=== PATIENT | female | born 1940 | race Caucasian/White ===

== ENCOUNTER 2025-08-06 07:08 | Emergency (ER) | payer MEDICARE, SELFPAY ==
[2025-08-06] VITALS (34 sets, daily range): BP systolic 143–184; BP diastolic 68–99; PULSE 74–75; RESP 16–18; TEMP 36.4; O2SAT 90–98
--- NOTE | ~2025-08-06 | XR_ITS ---
Examination: XR knee RT 3V Clinical History: pain s/p fall Comparison: None Technique: 3 views right knee Findings/impression: No acute findings- 1. No fracture, dislocation, or effusion right knee. 2. Patellofemoral compartment joint space narrowing with associated degenerative changes. 3. Medial and lateral compartment marginal osteophytes. 4. Distal femoral osteophyte Reviewed, dictated and finalized at location R.
--- NOTE | ~2025-08-06 | XR_ITS ---
Examination: XR shoulder LT min 2V, XR elbow LT min 3V Clinical History: pain s/p fall Comparison: None Technique: 3 views left shoulder, 3 views left elbow Findings/impression: Left shoulder: 1. Tiny nondisplaced fracture humeral head greater tuberosity not excluded. Seen on external rotation. 2. No dislocation. Left elbow: 1. No fracture or dislocation. Reviewed, dictated and finalized at location R.
--- NOTE | ~2025-08-06 | XR_ITS ---
Examination: XR chest 1V Clinical History: pain s/p fall Comparison: None Technique: Portable AP Findings: Loop recorder. Heart size mildly enlarged. Lungs clear. No acute bony abnormality. IMPRESSION: 1. No acute cardiopulmonary findings given portable technique. Reviewed, dictated and finalized at location R.
--- NOTE | ~2025-08-06 | CT_ITS ---
EXAMINATION: CT shoulder LT wo con DATE: 08/06/2025 10:29 INDICATION: Left shoulder pain. TECHNIQUE: Computed tomography (CT) of the left shoulder was performed without intravenous contrast. Automated exposure control and iterative reconstruction technique were employed. The dose-length product was 654.93 mGy-cm. COMPARISON: Left shoulder radiographs 08/06/2025 FINDINGS: There is a large sliding hiatal hernia. There is a subcutaneous electronic implant in left anterior chest wall. Bone alignment is normal. There is a nondisplaced fracture of greater tuberosity of proximal humerus. There is mild osteoarthritis of glenohumeral joint and acromioclavicular joint. There is severe thoracic spondylosis. There is mild chronic anterior wedging of multiple vertebral bodies. IMPRESSION: 1. Nondisplaced fracture of greater tuberosity of proximal humerus. 2. Mild polyarticular osteoarthritis. 3. Large sliding hiatal hernia. Reviewed, dictated and finalized at location E.
[2025-08-06 08:07] LABS: Hematocrit 38.3 % (37.0-47.0); Hemoglobin 12.8 g/dL (12.0-15.0); Immature Granulocyte Percent A 0.5 % (0-0.5); Lymphocytes Absolute Auto 0.90 K/mm3 (0.9-3.2); Mean Corpuscular HGB Conc 33.4 g/dl (32-36); Mean Corpuscular Hemoglobin 33.5 pg (26-34); Mean Corpuscular Volume 100.3 fl (80-100); Nucleated Red Blood Cells Absolute Auto 0.000 K/mm3 (0.0-0.012); Nucleated Red Blood Cells Perc 0.0 % (0.0-0.2); Platelet Count Result 204 k/mm3 (150-375); Red Blood Count 3.82 M/mm3 (4.2-5.4); White Blood Count 8.7 K/mm3 (4.5-10.0)
[2025-08-06 08:21] LABS: Alanine Aminotransferase 15 U/L (6-35); Albumin Level 3.9 g/dL (3.5-5.1); Alkaline Phosphatase 99 U/L (38-126); Anion Gap 5 mmol/L (4-12); Aspartate Amino Transferase 37 U/L (14-36); Bilirubin,Total 0.6 mg/dL (0.2-1.3); Blood Urea Nitrogen 19 mg/dL (7-17); Calcium 9.2 mg/dL (8.4-10.2); Carbon Dioxide 27 mmol/L (22-30); Chloride 104 mmol/L (98-107); Estimated CRCL calculation 42 ml/min; Estimated Glomerular Filt Rate > 60; Glucose 88 mg/dL (65-110); Magnesium 1.6 mg/dL (1.6-2.3); Potassium 3.9 mmol/L (3.4-5.0); Sodium 136 mmol/L (137-145); Total Protein 6.7 g/dL (6.3-8.2)
--- NOTE | 2025-08-06 09:03 | PC.NURSE ---
Pt attempted to give urine sample with a hat on the toilet and missed the specimen container.
--- NOTE | 2025-08-06 09:21 | ED.GENADULT ---
HPI - General Adult General Chief complaint: Fall Stated complaint: glf, L shoulder pain Time Seen by Provider: 08/06/25 07:18 History of Present Illness HPI narrative: Patient 85-year-old female who presents emergency department with chief complaint of ground level fall. Patient reports that she has had several falls when she lost her balance the patient reports she has history of Parkinson's and also history of Crohn's patient reports he is not on blood thinners reports she has pain in the left upper arm reports that it is worse with movement. Patient denies numbness or tingling Related Data Allergies Allergy/AdvReac Type Severity Reaction Status Date / Time levofloxacin Allergy Itching Verified 08/06/25 07:28 Review of Systems Review of Systems: A 10 system review of systems was completed on the patient and is negative except for what is stated in the HPI. Nursing and ancillary documentation was reviewed. [facility] Past Medical History Medical History Chronic pain Exam Narrative: GENERAL: Well-appearing, well-nourished, and in no acute distress. HEAD: Normocephalic, atraumatic. EYES: PERRLA and EOMI. ENT: Nares clear, no rhinorrhea or epistaxis. Mucous membranes moist. NECK: Supple. CHEST: Clear to auscultation. No respiratory distress. HEART: Regular rate and rhythm. No murmur heard. Normal peripheral pulses. ABDOMEN: Soft, nontender, nondistended, normal active bowel sounds. EXTREMITIES: Normal range of motion except for left shoulder with there is limited range of motion secondary to pain. There is bruising present to the left upper extremity. No edema. SKIN: Warm, dry, no rash. NEURO: No focal deficits. Alert and oriented x3. PSYCH: Normal mood and affect. Course Vital Signs Vital signs: Vital Signs Temperature 36.4 C 08/06/25 07:24 Pulse Rate 74 08/06/25 07:24 Respiratory Rate 18 08/06/25 07:24 Blood Pressure 174/70 H 08/06/25 07:24 Pulse Oximetry 95 08/06/25 07:24 Oxygen Delivery Room Air 08/06/25 07:24 Temperature 36.4 C 08/06/25 07:24 Pulse Rate 75 08/06/25 09:04 Respiratory Rate 16 08/06/25 09:04 Blood Pressure 154/75 H 08/06/25 09:04 Pulse Oximetry 95 08/06/25 09:04 Oxygen Delivery Room Air 08/06/25 07:24 Medical Decision Making Vital Signs Vital Signs: Vital Signs Temperature 36.4 C 08/06/25 07:24 Pulse Rate 74 08/06/25 07:24 Respiratory Rate 18 08/06/25 07:24 Blood Pressure 174/70 H 08/06/25 07:24 Pulse Oximetry 95 08/06/25 07:24 Oxygen Delivery Room Air 08/06/25 07:24 Temperature 36.4 C 08/06/25 07:24 Pulse Rate 75 08/06/25 09:04 Respiratory Rate 16 08/06/25 09:04 Blood Pressure 154/75 H 08/06/25 09:04 Pulse Oximetry 95 08/06/25 09:04 Oxygen Delivery Room Air 08/06/25 07:24 Lab Data 08/06/25 08:00 08/06/25 08:00 Labs: Lab Results 08/06/25 08/06/25 Range/Units 08:00 10:45 WBC 8.7 (4.5-10.0) K/mm3 RBC 3.82 L (4.2-5.4) M/mm3 Hgb 12.8 (12.0-15.0) g/dL Hct 38.3 (37.0-47.0) % MCV 100.3 H (80-100) fl MCH 33.5 (26-34) pg MCHC 33.4 (32-36) g/dl RDW 12.6 (11.5-14.5) % Plt Count 204 (150-375) k/mm3 MPV 9.8 (7.4-10.4) fl Immature Gran % (Auto) 0.5 (0-0.5) % Neut % (Auto) 78.8 H (45.5-73.1) % Lymph % (Auto) 10.3 L (18.3-44.2) % Willacy % (Auto) 8.7 H (2.6-8.5) % Eos % (Auto) 1.4 (0-4.4) % Baso % (Auto) 0.3 (0.2-1.2) % Lymph # (Auto) 0.90 (0.9-3.2) K/mm3 Willacy # (Auto) 0.8 H (0.1-0.6) K/mm3 Eos # (Auto) 0.1 (0-0.3) K/mm3 Baso # (Auto) 0.0 (0.0-0.1) K/mm3 Abs Immat Gran (auto) 0.04 H (0.00-0.031) K/mm3 Absolute Neuts (auto) 6.9 H (1.3-6.7) K/mm3 Absolute Nucleated RBC 0.000 (0.0-0.012) K/mm3 Nucleated RBC % 0.0 (0.0-0.2) % Sodium 136 L (137-145) mmol/L Potassium 3.9 (3.4-5.0) mmol/L Chloride 104 (98-107) mmol/L Carbon Dioxide 27 (22-30) mmol/L Anion Gap 5 (4-12) mmol/L BUN 19 H (7-17) mg/dL Creatinine 0.81 (0.7-1.0) mg/dL Estim Creat Clear Calc 42 ml/min Estimated GFR > 60 (59 - ) Glucose 88 (65-110) mg/dL Calcium 9.2 (8.4-10.2) mg/dL Magnesium 1.6 (1.6-2.3) mg/dL Total Bilirubin 0.6 (0.2-1.3) mg/dL AST 37 H (14-36) U/L ALT 15 (6-35) U/L Alkaline Phosphatase 99 (38-126) U/L Total Protein 6.7 (6.3-8.2) g/dL Albumin 3.9 (3.5-5.1) g/dL Urine Color Pending Urine Appearance Pending Urine pH Pending Ur Specific Simpson Pending Urine Protein Pending Urine Glucose (UA) Pending Urine Ketones Pending Ur Blood (Man) Pending Urine Nitrate Pending Urine Bilirubin Pending Urine Urobilinogen Pending Leukocyte Esterase Rfl Pending Discharge Plan Discharge Clinical Impression: Fall from ground level Closed fracture of greater tuberosity of humerus Qualifiers: Encounter type: initial encounter Fracture alignment: nondisplaced Laterality: left Qualified Code(s): S42.255A - Nondisplaced fracture of greater tuberosity of left humerus, initial encounter for closed fracture Patient Disposition: Acute Care Hospital Condition: Stable Instructions: Arm Fracture in Adults (ED), How to Use a Sling (ED), Fall Prevention (ED) Patient Language: Indian Prescriptions: New hydrocodone-acetaminophen 5-325 mg tablet 1 tablet PO Q6H PRN (Reason: pain) 3 Days Qty: 12 0RF No Action oxycodone-acetaminophen 5-325 mg tablet 1 tablet PO Q4H PRN (Reason: pain) Qty: 30 0RF Follow-up/Referrals: Mauricio,Lona Restrepo MD [Primary Care Provider, Unknown] Time of Disposition: 11:41
[2025-08-06 11:01] LABS: Add Urine Microscopic? YES; Appearance Urine Clear (Clear); Glucose Urine UA Negative (Negative); Leukocyte Esterase Ur Trace LEU/UL (Negative); Nitrate Urine Positive (Negative); Non Pathogenic Casts 0-2; Specific Grav Ur 1.008 (1.001-1.035)
== END 2025-08-06 13:14 | disposition short-term general hospital (02) ==
PROVIDERS: Emergency Provider Emergency Medicine; PCP Student in an Organized Health Care Education/Training Program
DX: S42.255A Nondisplaced fracture of greater tuberosity of left humerus, initial encounter for closed fracture (principal); G89.29 Other chronic pain; W01.0XXA Fall on same level from slipping, tripping and stumbling without subsequent striking against object, initial encounter; R82.998 Other abnormal findings in urine
CPT/HCPCS: 36415; 71045; 73030; 73080; 73200; 73562; 80053; 81001; 83735; 85025; 87077; 87086; 87186; 99284; A4565

== ENCOUNTER 2025-08-28 05:26 | Emergency (ER) | payer MEDICARE, SELFPAY ==
--- OUTSIDE RECORDS SUMMARY | 2025-08-27 12:25 | XMS_ITS | Encounter Summary ---
Author Organization [facility] Healthcare Address [address] [place] [address] Care Team Providers Care Cargo Mate Name Role Phone Willard Barksdale DO Unavailable Jani Washington MD Unavailable [phone] Lona Martínez MD Primary Care Provider Encounter Details Date Type Department Care Team (Latest Contact Info) Description 08/27/2025 12:25 PM DOGGY DAYCARE ACTIVITIES DIRECTOR - 08/27/2025 11:59 PM DOGGY DAYCARE ACTIVITIES DIRECTOR Hospital Encounter [facility]) [address] [place] [address] Arrived Discharge Disposition: Discharge to home [...] on file Legal Sex Female 5:27 AM DOGGY DAYCARE ACTIVITIES DIRECTOR Gender Identity Female 11/22/2024 10:23 AM DOGGY DAYCARE ACTIVITIES DIRECTOR Sexual Orientation Straight 11/22/2024 10 :23 AM DOGGY DAYCARE ACTIVITIES DIRECTOR documented as of this encounter Medications at [...] Prevention Inject 40 mg under the skin tyre retreader before breakfast furosemide (LASIX) 40 mg tabletIndications [...] (SYNTHROID) 137 mcg tablet 12/10/2024 multivit with azo-WC-mzamgmcf 0.4-600 mg-mcg tabletIndications :supplement Take 1 tablet [...] OF OUTSIDE FILMS Routine 08/27/2025 12:25 PM DOGGY DAYCARE ACTIVITIES DIRECTOR documented in this encounter Results * XR Outside Reference (08/27/2025 12:25 PM DOGGY DAYCARE ACTIVITIES DIRECTOR) Impressions [facility] - 08/27/2025 12:25 PM DOGGY DAYCARE ACTIVITIES DIRECTOR These images are for Reference purposes only and have not been reviewed by [facility] Radiology. There will be no report generated by a [facility] Radiologist. Narrative [facility] - 08/27/2025 12:25 PM DOGGY DAYCARE ACTIVITIES DIRECTOR EXAMINATION: Images For Reference Purposes Only us [place] COLE IMG XR PROCEDURES Final Result [facility] documented in this encounter Visit Diagnoses Not on filedocumented in this encounter Care Teams Cargo Mate Relationship Specialty Start Date End Date Lona Martínez MD [address] [address] PCP - General Family Medicine 01/20/25 Willard Barksdale DO [address] [place], [place] [id number] Family Medicine 03/28/24 Jani [place] [address] Referring Physician Neurology 03/28/24 documented as of this encounter
--- OUTSIDE RECORDS SUMMARY | 2025-08-27 12:26 | XMS_ITS | Encounter Summary ---
Author Organization [facility] Healthcare Address [address] [place] [address] Care Team Providers Care Recordist Chief Name Role Phone Willard Barksdale Rick BREWSTER Unavailable [phone] Jani Washington MD Unavailable [phone] Lona Martínez MD Primary Care Provider Reason for Referral * MRI/CAT/PET Scan (Routine) - Pending Review Specialty Diagnoses / Procedures Referred By Anselmo zamorano Referred To Contact Procedures [place] [address] [place] [address] Phone: tel: fax: Referral ID Status Reason Start Date Expiration Date V isits Requested Visits Authorized [id number] Pending Review 08/27/2025 09/26/2026 1 1 OW DRESSER Reason for Visit * MRI/CAT/PET Scan (Routine) - Pending Review Specialty Diagnoses / Procedures Referred By Anselmo zamorano Referred To Contact Procedures [place] [place] [address] [place] [address] Phone: tel: fax: Referral ID Status Reason Start Date Expiration Date V isits Requested Visits Authorized [id number] Pending Review 08/27/2025 09/26/2026 1 1 Encounter Details Date Type Department Care Team (Latest Contact Info) Description 08/27/2025 12:26 PM WINDOW DRESSER - 08/27/2025 11:59 PM WINDOW DRESSER Hospital Encounter [facility] [address] [place] [address] Arrived Discharge Disposition: Discharge to home or [...] on file Legal Sex Female 5:27 AM WINDOW DRESSER Gender Identity Female 11/22/2024 10:23 AM WINDOW DRESSER Sexual Orientation Straight 11/22/2024 10 :23 AM WINDOW DRESSER documented as of this encounter Medications at [...] Prevention Inject 40 mg under the skin lining setter before breakfast furosemide (LASIX) 40 mg tabletIndications [...] (SYNTHROID) 137 mcg tablet 12/10/2024 multivit with jqn-OF-zaaocccr 0.4-600 mg-mcg tabletIndications :supplement Take 1 tablet [...] Procedure Name Priority Date/Time Associated Diagnosis Comments MSK CT OUTSIDE REFERENCE Routine 08/27/2025 12:26 PM WINDOW DRESSER documented in this encounter Results * MSK CT Outside Reference (08/27/2025 12:26 PM WINDOW DRESSER) Impressions [facility] - 08/27/2025 12:26 PM WINDOW DRESSER These images are for Reference purposes only and have not been reviewed by [facility] Radiology. There will be no report generated by a [facility] Radiologist. Narrative [facility] - 08/27/2025 12:26 PM WINDOW DRESSER EXAMINATION: Images For Reference Purposes Only [facility] CO[address] IMG CT PROCEDURES Final Result Performing Organization Address City/State/[facility] Co de Phone Number [facility] documented in this encounter Visit Diagnoses Not on filedocumented in this encounter Care Teams Recordist Chief Relationship Specialty Start Date End Date Lona Martínez MD [address] [facility] [address] [place] [address] PCP - General Family Medicine 01/20/25 Willard Barksdale [place] [address] Family Medicine 03/28/24 Jani Washington [place] [address] Referring Physician Neurology 03/28/24 documented as of this encounter
--- NOTE | ~2025-08-28 | XR_ITS ---
Examination: XR humerus LT, XR shoulder LT min 2V Clinical History: Fall, pain, recent fx. Comparison: None Technique: 2 views left shoulder, 2 views left humerus Findings/impression: Left shoulder: 1. No fracture or dislocation given 2 view series. Left humerus: 1. No fracture. Reviewed, dictated and finalized at location R. ICE TECH
--- NOTE | ~2025-08-28 | XR_ITS ---
Examination: XR femur RT min 2V, XR knee RT 3V Clinical History: fall, pain Comparison: Right knee radiographs 10/06/2025 Technique: 2 views right femur 4 films, 3 views right knee Findings/impression: Right femur: 1. No fracture. 2. Moderate hip joint degenerative changes. Right knee: 1. No fracture, dislocation, or effusion. 2. Patellofemoral compartment joint space narrowing with associated degenerative changes and distal femoral ventral osteophyte. 3. Medial and lateral compartment marginal osteophytes. Reviewed, dictated and finalized at location R. SORTER
[2025-08-28 05:24] VITALS: BP 162/76; PULSE 78; RESP 18; TEMP 36.6; O2SAT 95
--- NOTE | 2025-08-28 05:39 | PC.NURSE ---
SHERLEYB to place purewick on patient.
--- NOTE | 2025-08-28 06:49 | ED_ITS ---
HPI - Fall General Chief Complaint: Fall Stated Complaint: fall, shoulder pain Time Seen by Provider: 08/28/25 06:49 History of Present Illness HPI Narrative: 85-year-old female with history of Parkinson's disease presenting to the emergency department after falling out of bed. Patient states that she was trying to get up in the middle of the night and fell on her left side between the wall and her bed. Did not strike her head or lose consciousness. No blood thinner use. She recently injured her left upper extremity and is currently in a sling. Has an orthopedic appointment at [facility] tomorrow. States she landed on the same side that she previously injury. She was having some difficulty getting up and she used her Michelle to call family who then contacted the correction to check on the patient. Patient was able to get up with some assistance and ambulate on scene afterwards. She is complaining of some pain in her left shoulder where she previously fractured her proximal humerus as well as pain in her right femur region and right knee. Was otherwise in her normal state of health. No headache, neck pain, vision changes, chest pain, shortness a breath. No abdominal discomfort. Was otherwise in her normal state of health and presents via EMS. Related Data Allergies Allergy/AdvReac Type Severity Reaction Status Date / Time levofloxacin Allergy Itching Verified 08/28/25 05:32 Review of Systems Review of Systems: As reviewed above in HPI PMFSH Past Medical History Medical History Chronic pain Exam 2 Narrative: GENERAL: [Well-appearing, well-nourished, and in no acute distress.] HEAD: [Normocephalic, atraumatic.] EYES: [PERRLA and EOMI.] ENT: Nares clear, no rhinorrhea or epistaxis. Mucous membranes moist. NECK: Supple. CHEST: [Clear to auscultation. No respiratory distress.] HEART: [Regular rate and rhythm]. No murmur heard. [Normal peripheral pulses.] ABDOMEN: [Soft, nondistended], [nontender], [No rigidity or guarding] EXTREMITIES: Left upper extremity restricted from range of motion with sling. Moderate tenderness to palpation over the proximal humerus but no overlying skin changes deformity or step-offs. Elbow without any tenderness. Copying Machine Repairer strength 5/5 in able to range each digit. Able to oppose each digit make a thumbs-up sign. No paresthesias. No edema in the extremities. Other extremities without any restricted range of motion. Able to flex at the hips bilaterally and extend both legs without any laxity. EHL and FHL 5/5 strength. No step-offs deformities of the lower extremities or any midline tenderness to the back. SKIN: Various bruising from presumptively old injuries with new bruising and abrasion to the right anterior thigh. NEURO: [No focal deficits]. Alert and oriented [x3.] Moving all extremities with symmetric strength and sensation throughout arms and legs. PSYCH: [Normal mood and affect.] Course Vital Signs Vital signs: Vital Signs Temperature 36.6 C 08/28/25 05:24 Pulse Rate 78 08/28/25 05:24 Respiratory Rate 18 08/28/25 05:24 Blood Pressure 162/76 H 08/28/25 05:24 Pulse Oximetry 95 08/28/25 05:24 Oxygen Delivery Room Air 08/28/25 05:24 Temperature 36.6 C 08/28/25 05:24 Pulse Rate 78 08/28/25 05:24 Respiratory Rate 18 08/28/25 05:24 Blood Pressure 162/76 H 08/28/25 05:24 Pulse Oximetry 95 08/28/25 05:24 Oxygen Delivery Room Air 08/28/25 05:24 MDM - Fall MDM Narrative Medical decision making narrative: 85-year-old female with history of Parkinson's disease presenting to the emergency department after falling out of bed. Patient states that she was trying to get up in the middle of the night and fell on her left side between the wall and her bed. Did not strike her head or lose consciousness. No blood thinner use. She recently injured her left upper extremity and is currently in a sling. Has an orthopedic appointment at [facility] tomorrow. States she landed on the same side that she previously injury. She was having some difficulty getting up and she used her Michelle to call family who then contacted the correction to check on the patient. Patient was able to get up with some assistance and ambulate on scene afterwards. She is complaining of some pain in her left shoulder where she previously fractured her proximal humerus as well as pain in her right femur region and right knee. Was otherwise in her normal state of health. No headache, neck pain, vision changes, chest pain, shortness a breath. No abdominal discomfort. Was otherwise in her normal state of health and presents via EMS. Left upper extremity restricted from range of motion with sling. Moderate tenderness to palpation over the proximal humerus but no overlying skin changes deformity or step-offs. Elbow without any tenderness. Copying Machine Repairer strength 5/5 in able to range each digit. Able to oppose each digit make a thumbs-up sign. No paresthesias. No edema in the extremities. Other extremities without any restricted range of motion. Able to flex at the hips bilaterally and extend both legs without any laxity. EHL and FHL 5/5 strength. No step-offs deformities of the lower extremities or any midline tenderness to the back. Patient is neurovascularly intact in all 4 limbs with normal vital signs without any tachycardia, fever or hypoxemia. No head trauma or blood thinner use. No need for head CT at this time. X-rays obtained of the right knee femur left humerus and shoulder. She was given tramadol and Tylenol. X-rays independent reviewed and interpreted by myself and radiology. No acute abnormalities or bony fractures. Patient had pain controlled and safe for discharge back to her facility for orthopedic follow-up tomorrow. Medical Records Attestation: I reviewed the patient's medical records. Lab Data Attestation: I reviewed the patient's lab results. Imaging Data Attestation: I personally reviewed and interpreted this imaging study as follows: My impression: No obvious new acute fractures deformity Discharge Plan Discharge Clinical Impression: Fall, Acute knee pain, Acute shoulder pain Patient Disposition: Home Condition: Stable Instructions: Antibiotic Form Additional Instructions: No broken bones or acute abnormalities. Keep your orthopedics appointment tomorrow morning. Take pain control medications such as Tylenol, ibuprofen and gwix-zri-trjpyxm lidocaine patches. Patient Language: Guatemalan Prescriptions: No Action hydrocodone-acetaminophen 5-325 mg tablet 1 tablet PO Q6H PRN (Reason: pain) 3 Days Qty: 12 0RF oxycodone-acetaminophen 5-325 mg tablet 1 tablet PO Q4H PRN (Reason: pain) Qty: 30 0RF Follow-up/Referrals: Mauricio,Lona Restrepo MD [Primary Care Provider, Unknown] Time of Disposition: 07:05
[2025-08-28] MEDS: ACETAMINOPHEN 500 MG TABLET 1000 MG PO (06:54)
[2025-08-28] MEDS: traMADol HCL (*CRX) 25 MG TABLET PO (06:54)
--- OUTSIDE RECORDS SUMMARY | 2025-08-28 07:12 | XMS_ITS | Clinical Summary ---
Author Organization [facility] al Address [address] [place] [address] Care Team Providers Care Patient Access Manager Name Role Phone Willard Barksdale DO Unavailable Jani Washington MD Unavailable [phone] Lona Martínez MD Primary Care Provider Allergies Active Allergy Reactions Criticality Noted Date Comments Levofloxacin Rash,Swelling,Anaphy laxi s,Shortness of breath High 03/12/2006 Reaction: RASH, THROAT CLOSING,HIVES Reaction: RASH, THROAT CLOSING,HIVES THROAT CLOSING,HIVES Medications cyanocobalamin (Vitamin B-12) 100 mcg tabletIndications: Prevention of Vitamin B12 Deficiency Take 1 tablet (100 mcg total) by mouth every morning Active gabapentin (NEURONTIN) 300 mg capsuleIndications :Neuropathic Pain Take 1 capsule (300 mg total) by mouth nightly 1 02/09/20 19 Active aspirin 81 mg enteric coated tablet Take 1 tablet (81 mg total) by mouth daily 09/24/20 23 Active Additional Information Patient taking differently:81 mg oralEvery morning, Indications: Myocardial Reinfarction Prevention, Informant: Self, Hemodialysis Lab Technician Care Facility, Reported on 02/02/2025 atorvastatin (Lipitor) 80 mg tabletIndications: Mixed hyperlipidemia Take 1 tablet (80 mg total) by mouth daily 09/24/20 23 Active Additional Information Patient not taking.Informant: Self, Reported on 01/10/2025 clopidogreL (Plavix) 75 mg tablet Take 1 tablet (75 mg total) by mouth daily 09/24/20 23 Active PARoxetine (PaxiL) 40 mg tabletIndications: Persistent depressive disorder Take 1 tablet (40 mg total) by mouth daily 09/24/20 23 Active Additional Information Patient taking differently:40 mg oralEvery morning, Indications: Anxiety with Depression, Informant: Self, Reported on 02/02/2025 sulfaSALAzine (AZULFIDINE) 500 mg tablet Take 4 tablets (2,000 mg total) by mouth daily 09/24/20 Active Additional Information Patient taking differently: 1,000 mgoral2 times daily, Informant: Self, Reported on 02/02/2025 omega-3 fatty acids 1,000 mg capsuleIndications :supplement Take 1,000 mg by mouth every morning Active acetaminophen (TYLENOL) 325 mg tabletIndications: Pain Take 1 tablet (325 mg total) by mouth every 4 (four) hours as needed for pain 10/13/20 23 Active cholecalciferol (VITAMIN D-3) 2000 unit tabletIndications: Vitamin D Deficiency Take 1 tablet (2,000 Units total) by mouth every morning 09/15/20 24 Active furosemide (LASIX) 40 mg tabletIndications: hypertension Take 1 tablet (40 mg total) by mouth every morning 09/27/20 24 Active Nystop powderIndications: cutaneous candidiasis Apply 1 Application topically every morning 11/25/19 25 Active omeprazole (PriLOSEC) 20 mg capsuleIndications :Stress Ulcer Prophylaxis Take 1 capsule (20 mg total) by mouth every morning 12/10/19 25 Active potassium chloride ER 20 mEq CR tabletIndications: supplement Take 1 tablet (20 mEq total) by mouth every morning 07/14/20 24 Active levothyroxine (SYNTHROID) 137 mcg tablet 12/10/19 25 Active calcium-magnesium- zinc 333-133-5 mg tablet Take 1 tablet by mouth every morning Active carbidopa-levodopa CR (SINEMET CR) 25-100 mg per CR tablet Take 1 tablet by mouth nightly Active multivit with vqo-KA-hqofeoyy 0.4-600 mg-mcg tabletIndications: supplement Take 1 tablet by mouth every morning Active enoxaparin 40 mg/0.4 mL syringe kitIndications:Mitzi navarro Vein Thrombosis Prevention Inject 40 mg under the skin manager cash before breakfast Active ibuprofen (ADVIL,MOTRIN) 600 mg tabletIndications: Pain Take 1 tablet (600 mg total) by mouth every 6 (six) hours as needed for pain Active ondansetron (ZOFRAN) 4 mg tablet Take 1 tablet (4 mg total) by mouth every 8 (eight) hours as needed for nausea or vomiting Active oxyCODONE (ROXICODONE) 5 mg immediate release tabletIndications: Pain Take 1 tablet (5 mg total) by mouth every 4 (four) hours as needed for pain Active senna (SENOKOT) 8.6 mg tabletIndications: constipation Take 1 tablet by mouth 2 (two) times a day Active carbidopa-levodopa (Sinemet) 25-100 mg per tabletIndications: Parkinsonism Take 2 tablets by mouth 2 (two) times a day Morning and lunch time 120 tablet 11 02/03/20 25 026 Active Active Problems Problem Noted Date Diagnosed Date Convergence insufficiency 12/21/2024 Exotropia, alternating 06/29/2024 Diplopia 06/29/2024 Mixed hyperlipidemia 09/24/2023 Assessment & Plan (09/24/2023 9:03 AM PRESSURE TESTING TECHNICIAN): This is chronic and stable. Avoid and limit foods that are high cholesterol, fatty. Limit intake of egg yokes, processed meats, and whole milk. Continue prescription atovastatin. Parkinson's disease without dyskinesia or fluctuating manifestations 09/24/2023 Acquired hypothyroidism 09/24/2023 Assessment & Plan (09/24/2023 9:04 AM PRESSURE TESTING TECHNICIAN): Chronic, stable; cont levothyroxine 125mcg/day OAB (overactive bladder) 09/24/2023 Persistent depressive disorder 09/24/2023 Primary osteoarthritis involving multiple joints 09/24/2023 Encephalopathy 09/24/2023 Gastroesophageal reflux disease without esophagi tis 09/24/2023 SHANITA (generalized anxiety disorder) 09/24/2023 Essential hypertension 09/24/2023 Crohn's disease 09/24/2023 Assessment & Plan (09/24/2023 9:04 AM PRESSURE TESTING TECHNICIAN): Chronic, stable; cont sulfasalazine script Stroke-like episode 09/24/2023 Assessment & Plan (09/24/2023 9:05 AM PRESSURE TESTING TECHNICIAN): Resolved, acute; begin pt and ot Chronic diastolic congestive heart failure 09/24 Cystitis 09/24/2023 Assessment & Plan (09/24/2023 9:05 AM PRESSURE TESTING TECHNICIAN): This is subacute and improving. Complete course of oral cefdinir script Hiatal hernia 09/24/2023 Lumbar radiculopathy 09/24/2023 Generalized weakness 09/24/2023 Assessment & Plan (09/24/2023 9:05 AM PRESSURE TESTING TECHNICIAN): I endorse admission to nursing home care. The patient is at risk of injury, illness and a requirement for a higher level of care without this service. The patient needs assistance from the nurses and care team for all activities of daily living including dressing, hygeine of person and toilet, safe transfer and mobility, dietary needs, medication administration, and grooming. The patient will need physical and occupational therapy to progress to a safer level of care. History of abnormal mammogram 04/07/2018 Resolved Problems Problem Noted Date Diagnosed Date Resolved Date Abnormal findings on diagnos tic imaging of breast 03/30/2015 04/07/2018 Encounters Date Type Department Care Team Description 08/27/2025 12:26 PM PRESSURE TESTING TECHNICIAN - 08/27/2025 11:59 PM PRESSURE TESTING TECHNICIAN Hospital Encounter [facility] [address] [place] [address] Arrived Discharge Disposition: Discharge to home or self care 08/27/2025 12:25 PM PRESSURE TESTING TECHNICIAN - 08/27/2025 11:59 PM PRESSURE TESTING TECHNICIAN Hospital Encounter [facility] [address] [place] [address] Arrived Discharge Disposition: Discharge to home or self care 08/10/20[facility] [address] [place] [address] Carson Crawford III, MD sooner appt r/s from Last 3 Months Surgical History Surgery Date Site/Laterality Comments LUMBAR PUNCTURE WO INJECTION , DIAGNOSTIC 12/05/2021 N/A OTHER SURGICAL HISTORY 01/04/2025 Labiaplast APPENDECTOMY 10/26/1964 - 10/25/1965 LYMPH NODE DISSECTION 01/04/2025 inguinal Medical History Medical History Date Comments Mixed hyperlipidemia 09/24/2023 Parkinson's disease without dyskinesia or fluctuating manifestations (HCC) 09/24/2023 Acquired hypothyroidism 09/24/2023 OAB (overactive bladder) 09/24/2023 Persistent depressive disorder 09/24/2023 Primary osteoarthritis involving multiple joints 09/24/2023 Encephalopathy 09/24/2023 Gastroesophageal reflux disease without esophagi tis 09/24/2023 SHANITA (generalized anxiety disorder) 09/24/2023 Essential hypertension 09/24/2023 Crohn's disease (HCC) 09/24/2023 Stroke-like episode 09/24/2023 Chronic diastolic congestive heart failure (HCC) 09/24/2023 Family History Medical History Relation Name Comments Anesthesia problems Neg Hx Social History Tobacco Use Types Packs/Day Years Used Date Smoking Tobacco: Former Cigarettes Q uit: 1999 Passive Smoke Exposure: Past Smokeless Tobacco: Never Tobacco Cessation:Counseling Given: Not Answered AUDIT-C Answer Date Recorded Q1: How often [...] on file Legal Sex Female 5:27 AM PRESSURE TESTING TECHNICIAN Gender Identity Female 11/22/2024 10:23 AM PRESSURE TESTING TECHNICIAN Sexual Orientation Straight 11/22/2024 10 :23 AM PRESSURE TESTING TECHNICIAN Last Filed Vital Signs Vital Sign Reading Time Taken Comments Blood Pressure 156/56 02/02/2025 6:50 PM CDT Pulse 72 02/02/2025 6:50 PM CDT Temperature 36.2 C (97.2 F) 02/02/2025 3:40 PM CDT Respiratory Rate 17 02/02/2025 6:50 PM CDT Oxygen Saturation 94% 02/02/2025 6:50 PM CDT Inhaled Oxygen Concentration - - Weight 72.1 kg (159 lb) 02/02/2025 3:40 PM CDT Height 152.4 cm (5') 02/02/2025 3:40 PM CDT Body Mass Index 31.05 02/02/2025 3:40 PM CDT Plan of Treatment Health Maintenance Due Date Last Done Comments Depression Screening 1940 Hepatitis B Screening 1958 Well Visit 65+ 2005 Osteoporosis Screening-Bone Density Scan 07/16/2023 07/16/2021 Covid-19 Vaccine (2024- 6 season) 2025 07/21/2023, 07/26/2022, 10/01/2021, Additional history exists Influenza Vaccine (#1) 2025 , 07/21/2023, 07/15/2022, Additional history exists Fall Risk Assessment 02/02/2026 02/02/2025 DTaP/Tdap/Td Vaccine (2 - Td or Tdap) 07/08/2027 07/08/2017 Pneumococcal vaccine 65+ Completed 017, 07/20/2017, 11/26/2015 Zoster Vaccine Completed 12/03/2021, 120 04/2021, 11/26/2015 Procedures Procedure Name Priority Date/Time Associated Diagnosis Comments MSK CT OUTSIDE REFERENCE Routine 08/27/2025 12:26 PM PRESSURE TESTING TECHNICIAN XR TRANSFER OF OUTSIDE FILMS Routine 08/27/2025 12:25 PM PRESSURE TESTING TECHNICIAN from Last 3 Months Results * MSK CT Outside Reference (08/27/2025 12:26 PM PRESSURE TESTING TECHNICIAN) Impressions RAD[facility]PACS_[facility] - 08/27/2025 12:26 PM PRESSURE TESTING TECHNICIAN These images are for Reference purposes only and have not been reviewed by [facility] Radiology. There will be no report generated by a [facility] Radiologist. Narrative RAD_PACS_[facility] - 08/27/2025 12:26 PM PRESSURE TESTING TECHNICIAN EXAMINATION: Images For Reference Purposes Only us Salbador COLE IMG CT PROCEDURES Final Result Performing Organization Address City/[facility]/ZIP Co de Phone Number RAD_PACS_[facility] * XR Outside Reference (08/27/2025 12:25 PM PRESSURE TESTING TECHNICIAN) Impressions [facility]_P[facility] - 08/27/2025 12:25 PM PRESSURE TESTING TECHNICIAN These images are for Reference purposes only and have not been reviewed by [facility] Radiology. There will be no report generated by a [facility] Radiologist. Narrative [facility] - 08/27/2025 12:25 PM PRESSURE TESTING TECHNICIAN EXAMINATION: Images For Reference Purposes Only us Salbador COLE IMG XR PROCEDURES Final Result Performing Organization Address City/[facility] Co de Phone Number [facility]_P[facility] from Last 3 Months Insurance [facility] MEDICARE GOLD AET MEDICARE GOLD Care Teams Patient Access Manager Relationship Specialty Start Date End Date Lona Martínez MD [address] [facility] [address] [place] [address] PCP - General Family Medicine 01/20/25 Willard Barksdale [place] [address] Family Medicine 03/28/24 Jani Washington [place] [address] [place] [address] Referring Physician Neurology 03/28/24
--- OUTSIDE RECORDS SUMMARY | 2025-08-28 07:12 | XMS_ITS | Encounter Summary ---
Author Organization [facility] Address [facility] [place] [address] Care Team Providers Care Financial Advisor Trainee Name Role Phone FroydeniseAlessandra RN Unavailable [phone] Lona Martínez MD Primary Care Provider + Jani Washington MD Unavailable [phone] Jewel Walker MD Unavailable [phone] John Cervantes MD Unavailable [phone] Julio Claudio MD Unavailable [phone] Encounter Details Date Type Department Care Team (Late st Contact Info) Description 08/09/2025 Fanminder Message Enc [facility] [address] [facility], [address] [place] [address] Felecia [facility] Provider Results Social History Tobacco Use Types Packs/Day Years Used Date Smoking Tobacco: Former Cigarettes 1 24 0 10/26/1974 - 10/26/1998 Passive Smoke Exposure: Past Smokeless Tobacco: Never Comments:The provider can pr ovide you with more information about quitting. Alcohol Use Standard Drinks/Week Comments Not Currently 1.7 (1 standard drink = 0.6 oz p ure alcohol) social events OASIS D0700: Social Isolation Answer Da te Recorded Frequency of experiencing loneliness or isolatio n Rarely 08/25/2023 OASIS A1250: Transportation Answer Date Recorded Lack of Transportation (Medical) No 08/25/2023 Lack of Transportation (Non-Medical) No 08/25/2023 Patient Unable or Declines to Respond No 08/25/2023 OASIS B1300: Health Literacy Answer Pieter e Recorded Frequency of needing help to read materials from doctor or pharmacy Never 08/25/2023 [facility] Utilities Answer Date Recorded In the past 12 months has e [employer], gas, oil, or water [employer] threatened to shut off services in your home? No 02/28/2025 Humiliation, Afraid, Rape, and Kick questionnair e Answer Date Recorded Within the last year, have y ou been afraid of your partner or ex-partner? No 02/28/2025 Within the last year, have y ou been humiliated or emotionally abused in other ways by your partner or ex-partner? No Within the last year, have y ou been kicked, hit, slapped, or otherwise physically hurt by your partner or ex-partner? No 02/28/2025 Within the last year, have y ou been raped or forced to have any kind of sexual activity by your partner or ex-partner? No 02/28/2025 Social Connection and Isolation Panel Answer Date Recorded In a typical week, how many times do you talk on the phone with family, friends, or neighbors? Once a week 06/19/2023 How often do you get together with friends or re latives? Twice a week 06/19/2023 How often do you attend evangelical or synagogue serv ices? Never 06/19/2023 Do you belong to any clubs o r organizations such as evangelical groups, unions, fraternal or athletic groups, or school groups? No 06/19/2023 How often do you attend meet ings of the clubs or organizations you belong to? Never 06/19/2023 Are you , , di vorced, , never , or living with a partner? 06/19/2023 AUDIT-C Answer Date Recorded Q1: How often do you have a drink containing alc ohol? Monthly or less 08/05/2025 Q2: How many drinks containi ng alcohol do you have on a typical day when you are drinking? 1 or 2 08/05/2025 Q3: How often do you have si x or more drinks on one occasion? Never 08/05/2025 Overall Financial Resource Strain (CARDIA) Answe r Date Recorded How hard is it for you to pa y for the very basics like food, housing, medical care, and heating? Not hard at all 02/28/2025 PHQ-2 Answer Date Recorded Patient Health Questionnaire-2 Score 2 08/05/2025 [facility] - Occupational Stress Questionnaire Answer Date Recorded Do you feel stress - tense, restless, nervous, or anxious, or unable to sleep at night because your mind is troubled all the time - these days? Not at all 06/19/2023 Exercise Vital Sign Answer Date Recorde d On average, how many days pe r week do you engage in moderate to strenuous exercise (like a brisk walk)? 1 day 06/19/2023 On average, how many minutes do you engage in exercise at this level? 10 min 06/19/2023 Hunger Vital Sign Answer Date Recorded Within the past 12 months, y ou worried that your food would run out before you got the money to buy more. Never true 02/29/20 25 Within the past 12 months, t he food you bought just didn't last and you didn't have money to get more. Never true 02/28/2025 PRAPARE - Transportation Answer Date Re corded In the past 12 months, has l ack of transportation kept you from medical appointments or from getting medications? No 03/2025 In the past 12 months, has l ack of transportation kept you from meetings, work, or from getting things needed for daily living? No 02/28/2025 Housing Stability Vital Sign Answer Pieter e Recorded In the last 12 months, was t here a time when you were not able to pay the mortgage or rent on time? No 09/29/2023 In the last 12 months, how many places have you lived? 1 09/29/2023 In the last 12 months, was t here a time when you did not have a steady place to sleep or slept in a residential (including now)? No 09/29/2023 Housing Stability Vital Sign Answer Pieter e Recorded In the last 12 months, was t here a time when you were not able to pay the mortgage or rent on time? No 02/28/2025 In the past 12 months, how m any times have you moved where you were living? 1 02/28/2025 At any time in the past 12 m [facility], were you homeless or living in a residential (including now)? No 02/28/2025 Comments No Sex and Gender Information Value Date Recorded Sex Assigned at Female 05/24/2019 6:18 PM CDT Legal Sex Female 1:30 AM CDT Gender Identity Female 05/24/2019 6:18 PM CDT Sexual Orientation Straight 05/24/2019 6: 18 PM CDT documented as of this encounter Functional Status * Are you deaf or do you have serious difficulty hearing Answer Date of Assessment Author Status No 02/28/2025 5:56 AM VANNAT Rama French RN Active * Are you blind or do you have serious difficulty seeing, even when wearing glasses? Answer Date of Assessment Author Status No 02/28/2025 5:56 AM Rama Burris RN Active * Do you have serious difficulty walking or climbing stairs? Answer Date of Assessment Author Status Yes 02/28/2025 5:56 AM Rama Burris RN Active * Do you have difficulty dressing or bathing? Answer Date of Assessment Author Status No 02/28/2025 5:56 AM Rama Burris RN Active * Because of a physical, mental, or emotional condition, do you have difficulty doing errands alone such as visiting a doctor's office or shopping? Answer Date of Assessment Author Status Yes 02/28/2025 5:56 AM Rama Burris RN Active documented as of this encounter Mental Status * Because of a physical, mental, or emotional condition, do you have serious difficulty concentrating, remembering, or making decisions? Answer Entry Date Author Status No 02/28/2025 5:56 AM Rama Burris RN Active documented in this encounter Plan of Treatment Upcoming Encounters Date Type Department Care Team (Late st Contact Info) Description 09/04/2025 4:20 PM TRACK SERVICE PERSON Allied Health/Nurse Visit [facility], [address] [place] [address] Rick Madison MD [facility]. [address] [place], [place] [address] 09/14/2025 1:20 PM TRACK SERVICE PERSON Office Visit [facility] Family Medicine - [address] [place], [place] [address] Lona Martínez MD [address] [place] [id number] 12/26/2025 2:15 PM TRACK SERVICE PERSON Office Visit [facility], [address] [place] [address] Roxy Roth, ORE SAMPLER-C [facility]. [address] [place] [address] 01/01/2026 3:00 PM CDT Office Visit [facility] [address] [facility], [address] [place] [address] Jani Washington MD [address] [facility] [place] [address] 08/24/2026 2:00 PM CDT Office Visit [facility] Family [facility] [address] [place], [place] [address] Lona Martínez MD [address] [place], [place] [id number] documented as of this encounter Goals Goal Patient Goal Type Associated Problems Recent Progress Patient-Stated? Author Health - patient able to perform ADLs independently Lifestyle On track(2024 2:36 PM CDT) No Malena Mcqueen, NUT PICKER Establish Regular Follow-Ups with PCP Lifestyle On track(2024 2:36 PM CDT) No Alessandra Sarabia RN Establish Plan for Symptom Monitoring HTN Lifestyle On track(2024 2:36 PM CDT) No Alessandra Sarabia RN Note: HTN: Patient to monitor blood pressure daily and record readings and call provider with consistent readings >140/90. Patient will maintain a low sodium diet . Patient will call provider with any visual disturbances, headaches or dizziness. Patient to take all medications as prescribed. Establish Plan for Symptom Monitoring Lifestyle On track(2024 2:36 PM CDT) No Alessandra Sarabia RN Note: CHF: Patient to adhere to a low sodium diet. Patient to weigh daily and report weight gain >3 pounds overnight or >5 pounds in a week. Patient to report any increase in swelling to lower extremities or increase in shortness of breath. Patient to monitor blood pressure and report consistent readings >140/90 Monitor - able to maintain pain control Lifestyle On track(2024 2:36 PM CDT) No Ernie Solano RN Know what s/s should trigger a call to provider. Care Plan Acute blood loss anemia No Lesia Martinez RN Understand your medications and know how, why, and when to take them. Care Plan Acute blood loss anemia No Lesia Martinez RN Note: See Notes Improve [facility] Support System Care Plan [facility] HP SOCIAL SUPPORT No Nathalie Arndt BSW Improve [facility] Support System Care Plan [facility] SOCIAL SUPPORT No Nathalie Arndt BSW documented as of this encounter Visit Diagnoses Not on filedocumented in this encounter Additional Health Concerns Active Problems Noted Date Diagnosed Date Acute blood loss anemia 05/30/2019 [facility] 06/08/2019 Assessment Noted Time PHQ-9 Depression Total Score: 6 08/05/20 25 10:01 AM CDT documented as of this encounter Care Teams Financial Advisor Trainee Relationship Specialty Start Date End Date Lona Martínez MD [address] [place] [address] PCP - General FAMILY PRACTICE 05/03/24 Alessandra Sarabia, RN [address] [place] [address] Linux Administrator (Ambulatory) REGISTERED NURSE 06/05/23 Jani Washington MD [address] [facility] [address] [place] [address] Physician NEUROMUSCULOSKELETAL MEDICINE 06/28/24 Jewel Walker MD [facility] [place] [address] Referring Physician GASTROENTEROLOGY 06/28/24 John Cervantes MD [address] [address] OPHTHALMOLOGY 06/28/24 [place] [address] [place] [address] Consulting Physician CARDIOVASCULAR DISEASE 07/04/25 documented as of this encounter
--- OUTSIDE RECORDS SUMMARY | 2025-08-28 07:12 | XMS_ITS | Encounter Summary ---
Author Organization [facility] Address [facility] [place] [address] Care Team Providers Care Typesetters Printer Name Role Phone Cornell Alessandra Person RN Unavailable [phone] Lona Martínez MD Primary Care Provider + Jani Washington MD Unavailable [phone] Jewel Walker MD Unavailable [phone] John Cervantes MD Unavailable [phone] Julio Claudio MD Unavailable [phone] Encounter Details Date Type Department Care Team (Latest Contact Info) Description 08/09/2025 Results Follow-Up [facility] Multispecialty Care - [facility] [address] [facility], [address] [place] [phone] Jani Washington MD [address] [place] [address] VITAMIN B6, VITAMIN B-12, VITAMIN B1 THIAMINE, FOLIC ACID SERUM Social History Tobacco Use Types Packs/Day Years [...] materials from doctor or pharmacy Never 08/25/2023 [facility] Utilities Answer Date Recorded In the past 12 months has e [place], gas, oil, or water [employer] threatened to shut off services in your [...] week 06/19/2023 How often do you attend sikh or hindu serv ices? Never 06/19/2023 Do you belong to any clubs o r organizations such as sikh groups, unions, fraternal or athletic groups, or [...] Recorded Patient Health Questionnaire-2 Score 2 08/05/2025 [facility] - Occupational Stress Questionnaire Answer Date Recorded [...] place to sleep or slept in a care home (including now)? No 09/29/2023 Housing Stability Vital Sign Answer Pieter e Recorded In the last 12 months, was t here a time when you were not able to pay the mortgage or rent on time? No 02/28/2025 In the past 12 months, how m any times have you moved where you were living? 1 02/28/2025 At any time in the past 12 m [facility], were you homeless or living in a care home (including now)? No 02/28/2025 Comments No Sex [...] Assessment Author Status No 02/28/2025 5:56 AM CDT Rama French RN Active * Are you blind or do you have serious difficulty seeing, even when wearing glasses? Answer Date of Assessment Author Status No 02/28/2025 5:56 AM VANNAT Rama French RN Active * Do you have serious difficulty walking or climbing stairs? Answer Date of Assessment Author Status Yes 02/28/2025 5:56 AM VANNAT Rama French RN Active * Do you have difficulty dressing or bathing? Answer Date of Assessment Author Status No 02/28/2025 5:56 AM VANNAT Rama French RN Active * Because of a physical, [...] Date Author Status No 02/28/2025 5:56 AM CDT Rama French RN Active documented in this encounter Plan of Treatment Upcoming Encounters Date Type Department Care Team (Late st Contact Info) Description 09/04/2025 4:20 PM MAINTENANCE MACHINE REPAIRER Allied Health/Nurse Visit [facility] THREE [facility], [address] [place] [address] Rick Madison MD Three [facility]. [address] [place] [address] 09/14/2025 1:20 PM MAINTENANCE MACHINE REPAIRER Office Visit [address] [place] [address] Lona Martínez MD [facility] [address] [place] [address] 12/26/2025 2:15 PM MAINTENANCE MACHINE REPAIRER Office Visit [facility] THREE [facility], [address] [place] [address] Roxy Roth, SENIOR BUDGET ANALYST-C Three [facility]. [address] [place] [address] 01/01/2026 3:00 PM CDT Office Visit [facility] Multispecialty Care - [facility] [address] [facility], [address] [place] [phone] Jani Washington MD [address] [facility] [place] [address] 08/24/2026 2:00 PM CDT Office Visit [address] [place] [address] Lona Martínez MD [address] [place] [address] documented as of this encounter Goals Goal Patient Goal Type Associated Problems Recent Progress Patient-Stated? Author Health - patient able to perform ADLs independently Lifestyle On track(2024 2:36 PM CDT) No Malena Mcqueen, DATA MINING ANALYST Establish Regular Follow-Ups with PCP Lifestyle On track(2024 2:36 PM CDT) No Alessandra Sarabia, RN Establish Plan for Symptom Monitoring HTN Lifestyle On track(2024 2:36 PM CDT) No Alessandra Sarabia, RN Note: HTN: Patient to monitor blood pressure daily and record readings and call provider with consistent readings >140/90. Patient will maintain a low sodium diet . Patient will call provider with any visual disturbances, headaches or dizziness. Patient to take all medications as prescribed. Establish Plan for Symptom Monitoring Lifestyle On track(2024 2:36 PM CDT) No Alessandra Sarabia, RN Note: CHF: Patient to adhere to [...] Plan Acute blood loss anemia No Lesia Maritnez RN Note: See Notes Improve Home Support System Care Plan [facility] HP SOCIAL SUPPORT No Nathalie Arndt BSW Improve Home Support System Care Plan [facility] HP SOCIAL SUPPORT No Arndt, Nathalie L, SWEATBAND MAKER documented as of this encounter Visit Diagnoses Not on filedocumented in this encounter Additional Health Concerns Active Problems Noted Date Diagnosed Date Acute blood loss anemia 05/30/2019 [facility] HP SOCIAL SUPPORT 06/08/2019 Assessment Noted Time PHQ-9 Depression Total Score: 6 08/05/20 25 10:01 AM CDT documented as of this encounter Care Teams Typesetters Printer Relationship Specialty Start Date End Date Lona Martínez MD [address] [place] [address] PCP - General FAMILY PRACTICE 05/03/24 Alessandra Sarabia, RN [address] [place] [address] Seamer Operator (Ambulatory) REGISTERED NURSE 06/05/23 Jani Washington MD [address] [facility] [address] [place] [address] Physician NEUROMUSCULOSKELETAL MEDICINE 06/28/24 Jewel Walker MD [address] [place] [address] Referring Physician GASTROENTEROLOGY 06/28/24 John Cervantes MD [address] [address] OPHTHALMOLOGY 06/28/24 [place] [address] [place] [address] Consulting Physician CARDIOVASCULAR DISEASE 07/04/25 documented as of this encounter
--- OUTSIDE RECORDS SUMMARY | 2025-08-28 07:13 | XMS_ITS | Clinical Summary ---
Author Organization [facility] Address [address] [place] [address] Phone Care Team Providers Care Manager Diabetes Name Role Phone Maxi Salinas MD Primary Care Provider [phone] Allergies Active Allergy Reactions Criticality Noted Date Comments Levofloxacin Swelling High 11/14/2016 THROAT CLOSING,HIVES Medications sulfaSALAzine (AZULFIDINE) 500 mg tablet Take 500 mg by mouth 2 times daily. Active mercaptopurine (PURINETHOL) 50 mg tablet Take 50 mg by mouth 2 times daily . Active simvastatin (ZOCOR) 40 mg tablet Take 40 mg by mouth daily. Active hydroCHLOROthia zide (MICROZIDE) 12.5 mg capsule Take 12.5 mg by mouth daily. Active losartan-hydroC HLOROthiazide (HYZAAR) 50-12.5 mg tablet Take 1 Tablet by mouth daily. Active Levothyroxine 100 mcg Capsule Take by mouth. Active PARoxetine HCl (PAXIL) 30 mg tablet Take 30 mg by mouth daily. Active omega-3 fatty acids-fish oil (FISH OIL) 300-1,000 mg Capsule Take by mouth daily. Active omeprazole magnesium (PriLOSEC) 20 mg Tablet, Delayed Release (E.C.) Take 20 mg by mouth daily. Active VITAMIN B COMPLEX NO.12-NIACIN ORAL Take by mouth. Activ e OTHER Provider please include Medication name, dose, route and frequency . Active cyclobenzaprine (FLEXERIL) 10 mg tablet Take 1 Tablet (10 mg) by mouth 3 times daily as needed for Discomfort or Spasm. 90 Tablet 11/18/2016 12:32 PM INGREDIENT SCALER 7 Active oxyCODONE-aceta minophen (PERCOCET) 5-325 mg tablet Take 1-2 Tablets by mouth every 4-6 hours as needed for pain. 60 Tablet 11/18/2016 12:32 PM INGREDIENT SCALER 7 Active traZODone (DESYREL) 50 mg tablet Take 50 mg by mouth daily at bedtime. Active Active Problems Problem Noted Date Diagnosed Date Lumbar radiculopathy 11/17/2016 Immunizations Immunization Administration Dates Next Due (ADACEL/BOOSTRIX)(10 YR UP) TDAP VACCINE, 0.5ML, IM 07/08/2017 Social History Tobacco Use Types Packs/Day Years Used Date Smoking Tobacco: Former Cigarettes 1 20 Alcohol Use Standard Drinks/Week Comments Yes 0 (1 standard drink = 0.6 oz pur e alcohol) 1 EVERY 3 MO Comments No Sex and Gender Information Value Date Recorded Sex Assigned at Not on file Legal Sex Female 10:50 AM INGREDIENT SCALER Gender Identity Not on file Sexual Orientation Not on file Last Filed Vital Signs Vital Sign Reading Time Taken Comments Blood Pressure 148/82 07/08/2017 2:13 PM CDT Pulse 71 07/08/2017 12:15 PM CDT Temperature 36.8 C (98.2 F) 07/08/2017 2:13 PM CDT Respiratory Rate 16 07/08/2017 2:13 PM CDT Oxygen Saturation 98% 07/08/2017 2:13 PM CDT Inhaled Oxygen Concentration - - Weight 95.3 kg (210 lb) 07/08/2017 12:12 PM CDT Height 160 cm (5' 3) 07/08/2017 12:12 PM CDT Body Mass Index 37.2 07/08/2017 12:12 PM CDT Plan of Treatment Health Maintenance Due Date Last Done Comments PNEUMOCOCCAL VACCINE 50+ YEARS (1 of 1 - PCV) 03/09/19 90 ZOSTER VACCINE (1 of 2) 1990 OSTEOPOROSIS SCREENING 2005 RSV VACCINE (60+ or ) (1 - 1-dose 75+ series) 2015 INFLUENZA VACCINE (#1) 2025 DTAP/TDAP/TD VACCINES (2 - Td or Tdap) 07/08/2027 Medical Devices Implanted Type Area Cook Short Order Device Identifier Shelf Expiration Date Model / Serial / Lot Sealant Duraseal 5ml - [id number] Implanted:Qt y: 1 on 11/17/2016 by Kyler Ovalle MD at [facility] Biological N/A: Spine Lumbar [employer] [id number] 01/23/2018 / / [id number] Sealant Floseal W/ Apdtr 5ml [id number] - [id number] Implanted:Qt y: 1 on 11/17/2016 by Kyler Ovalle MD at [facility] Sealant N/A: Spine Lumbar [employer] [id number] 02/22/2018 [id number] / / [id number] Insurance RX [facility] Medicare Part D RX DE PAZ PLANS (INTERNAL) [facility] Internal Plans MEDICARE PART A AND B [facility] Advance Directives For more information, please contact: [phone] Documents on File Type Date Recorded Patient Firearms Sales Associate Expl anation Advance Directive POA 11/17/2016 9:14 AM * Full Code (Latest Code Status on File) Date Activated Date Inactivated Comments 11/17/2016 3:04 PM 11/18/2016 2:58 PM * Full Code Date Activated Date Inactivated Comments 11/17/2016 3:04 PM 11/17/2016 3:04 PM * Full Code Date Activated Date Inactivated Comments 11/17/2016 11:26 AM 11/17/2016 3:04 PM * Full Code Date Activated Date Inactivated Comments 11/17/2016 9:30 AM 11/17/2016 11:26 AM Care Teams Manager Diabetes Relationship Specialty Start Date End Date Maxi Salinas MD [address] [place] [address] PCP - General Family Practice 11/17/16
--- OUTSIDE RECORDS SUMMARY | 2025-08-28 07:13 | XMS_ITS | Encounter Summary ---
Author Organization [facility] Address [facility] [place] [address] Care Team Providers Care Unpaid Intern Name Role Phone FroydeniseAlessandra RN Unavailable [phone] Lona Martínez MD Primary Care Provider + Jani Washington MD Unavailable [phone] Jewel Walker MD Unavailable [phone] John Cervantes MD Unavailable [phone] Julio Claudio MD Unavailable [phone] Encounter Details Date Type Department Care Team (Latest Contact Info) Description 08/11/2025 Scan HEALTH INFO SRVCS Scanned, Doc Med Group Social History Tobacco Use Types Packs/Day Years [...] materials from doctor or pharmacy Never 08/25/2023 [facility] Utilities Answer Date Recorded In the past 12 months has e [employer], [employer], oil, or water [employer] threatened to shut off services in your [...] week 06/19/2023 How often do you attend confucianism or buddhism serv ices? Never 06/19/2023 Do you belong to any clubs o r organizations such as confucianism groups, unions, fraternal or athletic groups, or [...] Recorded Patient Health Questionnaire-2 Score 2 08/05/2025 [employer] [facility]at ional [facility] - Occupational Stress Questionnaire Answer Date Recorded [...] place to sleep or slept in a penitentiary (including now)? No 09/29/2023 Housing Stability Vital Sign Answer Pieter e Recorded In the last 12 months, was t here a time when you were not able to pay the mortgage or rent on time? No 02/28/2025 In the past 12 months, how m any times have you moved where you were living? 1 02/28/2025 At any time in the past 12 m [facility], were you homeless or living in a penitentiary (including now)? No 02/28/2025 Comments No Sex [...] st Contact Info) Description 09/04/2025 4:20 PM INTELLIGENT SYSTEMS ENGINEER [facility] [address] [address] Rick Madison MD Three [facility]. [address] [place] [address] 09/14/2025 1:20 PM INTELLIGENT SYSTEMS ENGINEER Office Visit [facility] [address] [place] [address] Lona Martínez MD [address] [place] [address] 12/26/2025 2:15 PM INTELLIGENT SYSTEMS ENGINEER Office Visit [facility] THREE [facility], [address] [place] [address] Roxy Roth, REACTOR KETTLE OPERATOR-C Three [facility]. [address] [place] [address] 01/01/2026 3:00 PM CDT Office Visit [facility] Multispecialty Care - [facility] [address] [facility], [address] [place] [phone] Jani Washington MD 3 [facility] [place] [address] 08/24/2026 2:00 PM CDT Office Visit [place] [address] [place] [address] Lona Martínez MD [address] [place] [address] documented as of this encounter Goals Goal Patient Goal Type Associated Problems Recent Progress Patient-Stated? Author Health - patient able to perform ADLs independently Lifestyle On track(2024 2:36 PM CDT) Malena Amezcua, END POLISHER Establish Regular Follow-Ups with PCP Lifestyle On [...] blood loss anemia No Lesia Maritnez RN Understand your medications and know how, why, and when to take them. Care Plan Acute blood loss anemia No Lesia Martinez RN Note: See Notes Improve Home Support System Care Plan [facility] SOCIAL SUPPORT No Nathalie Arndt BSW Improve Home Support System Care Plan [facility] SOCIAL SUPPORT No Nathalie Arndt BSW documented as of this encounter Visit Diagnoses Not on filedocumented in this encounter Additional Health Concerns Active Problems Noted Date Diagnosed Date Acute blood loss anemia 05/30/2019 [facility] HP SOCIAL SUPPORT 06/08/2019 Assessment Noted Time PHQ-9 Depression Total Score: 6 08/05/20 25 10:01 AM CDT documented as of this encounter Care Teams Unpaid Intern Relationship Specialty Start Date End Date Lona Martínez MD [address] [facility] [address] [place] [address] PCP - General FAMILY PRACTICE 05/03/24 Alessandra Sarabia, RN [address] [place] [address] Washer Carcass (Ambulatory) REGISTERED NURSE 06/05/23 Jani Washington MD [address] [place] [phone] Physician NEUROMUSCULOSKELETAL MEDICINE 06/28/24 Jewel Walker MD [facility] [place] [address] Referring Physician GASTROENTEROLOGY 06/28/24 John Cervantes MD [address] [address] OPHTHALMOLOGY 06/28/24 [place] [address] [place] [address] Consulting Physician CARDIOVASCULAR DISEASE 07/04/25 documented as of this encounter
--- OUTSIDE RECORDS SUMMARY | 2025-08-28 07:13 | XMS_ITS | Clinical Summary ---
Author Organization [facility] Address [address] [place] [address] Care Team Providers Care Senior Net Software Engineer Name Role Phone Lona Martínez Primary Care Provider [phone] Source Comments [facility],non-owned Affiliates and Associated Physician Practices is amultiple site organization consisting of ambulatory clinics and hospital sitesin [place], [place], [place] and [place]. This disclosure is being madepursuant to the Care Everywhere program and may not contain all information available regarding this patient. Last updated 18.[facility] [employer] Allergies Active Allergy Reactions Criticality Noted Date Comments Levaquin Anaphylaxis,Rash,Aziza rtness of Breath,Swelling High 03/12/2006 Medications * Be aware that medications may not be up to date on this document. Alwaysverify current medications with the patient. aspirin (Aspirin) 81 MG chew tablet Take 1 (one) tablet by mouth once daily 3 Active Calcium-Vitamin D-Vitamin K 500-1000-40 MG-UNT-MCG Active cyanocobalamin 100 MCG tablet Take 1 (one) tablet by mouth once daily 6 Active gabapentin (Neurontin) 300 MG capsule Take 1 (one) capsule by mouth once daily 4 Active omeprazole EC (PriLOSEC OTC) 20 MG tablet Take 1 (one) tablet by mouth once daily 4 Active sulfaSALAzine (Azulfidine) 500 MG tablet Take 2 (two) tablets by mouth 2 times daily 4 Active [place]-3 Fatty Acids (fish oil) 500 MG capsule Take by mouth 2 times daily Active furosemide (Lasix) 40 MG tablet 5 Active potassium chloride ER (Klor-Con M) 20 MEQ tablet 5 Active levothyroxine (Synthroid) 137 MCG tablet Take 1 (one) tablet by mouth daily before breakfast Active carbidopa-levod opa (Sinemet) 25-100 MG tablet Take 1 (one) tablet by mouth every evening @ 1630 Active carbidopa-levod opa (Sinemet) 25-100 MG tablet Take 2 (two) tablets by mouth 2 times daily @ 0830 & NOON Active PARoxetine (Paxil) 40 MG tablet Take 1 (one) tablet by mouth once daily Active ondansetron, disintegrating, (Zofran ODT) 4 MG tablet Take 1 (one) tablet by mouth every 6 hours as needed for Nausea/Vomiting. Allow tablet to dissolve on the tongue. 10 tablet 5 Active Additional Information Patient not taking.Reported on 01/19/2025 senna (Senokot) 8.6 MG tablet Take 1 (one) tablet by mouth 2 times daily 30 tablet 5 Active oxyCODONE, immediate release, (Roxicodone) 5 MG tabletIndicatio ns:Vulvar mass Take 1 (one) tablet by mouth every 4 hours as needed 15 tablet 5 Active Additional Information Patient not taking.Reported on 01/19/2025 acetaminophen (Tylenol) 325 MG tablet Take 2 (two) tablets by mouth every 6 hours as needed for Fever or Pain 40 tablet 5 Active ibuprofen (Motrin) 600 MG tablet Take 1 (one) tablet by mouth every 6 hours as needed for Pain 40 tablet 5 Active Additional Information Patient not taking.Reported on 01/19/2025 Cholecalciferol 50 MCG (2000 UT) Take 1 (one) tablet by mouth every morning 4 Active LYCOPENE PO Take 1 tablet by mouth every morning Active omeprazole (PriLOSEC) 20 MG capsule 5 Active clopidogrel (plaVIX) 75 MG tablet 5 Active prednisoLONE acetate (Pred Forte) 1 % ophthalmic suspension 5 Active Active Problems Problem Noted Date Diagnosed Date Vulvar mass 01/04/2025 Social History Tobacco Use Types Packs/Day Years Used Date Smoking Tobacco: Former Cigarettes Tobacco Cessation:Counseling Given: Not Answered Alcohol Use Standard Drinks/Week Comments Yes 0 (1 standard drink = 0.6 oz pur e alcohol) AUDIT-C Answer Date Recorded Q1: How often do you have a drink containing alc ohol? Never 01/04/2025 Average Number of Drinks Not on file 025 Frequency of Binge Drinking Not on file 12/24 PHQ-2 Answer Date Recorded Patient Health Questionnaire-2 Score 0 03/26/2025 Comments No Sex and Gender Information Value Date Recorded Sex Assigned at Female 11/11/2024 10:27 AM HEALTH SCREENER Legal Sex Female 5:48 PM HEALTH SCREENER Gender Identity Female 11/11/2024 10:27 AM HEALTH SCREENER Sexual Orientation Choose not to disclose 2024 10:27 AM HEALTH SCREENER Last Filed Vital Signs Vital Sign Reading Time Taken Comments Blood Pressure 124/70 01/19/2025 1:24 PM CDT Pulse 73 01/06/2025 9:45 PM CDT Temperature 36.4 C (97.6 F) 01/06/2025 9:45 PM CDT Respiratory Rate 17 01/06/2025 9:45 PM CDT Oxygen Saturation 96% 01/06/2025 9:45 PM CDT Inhaled Oxygen Concentration - - Weight 73.7 kg (162 lb 6.4 oz) 01/19/2025 1:24 P M CDT Height 152.4 cm (5') 01/19/2025 1:24 PM CDT Body Mass Index 31.72 01/19/2025 1:24 PM CDT Plan of Treatment Health Maintenance Due Date Last Done Comments DTAP/TDAP/TD VACCINES (1 - Tdap) 1959 PNEUMOCOCCAL VACCINE 50+ (1 of 1 - PCV) 1990 ZOSTER VACCINE (1 of 2) 1990 Respiratory Syncytial Virus (RSV) Vaccine Pt: or over 60 yrs (1 - 1-dose 75+ series) 2015 MEDICARE AWV CALENDAR YEAR 2024 COVID-19 VACCINE ( season) 2025 08/02/2024, 07/21/2023, 07/26/2022, Additional history exists INFLUENZA VACCINE (#1) 2025 , 07/21/2023, 07/15/2022, Additional history exists BONE DENSITY TESTING Completed 07/16/2021 DEPRESSION SCREENING Completed 11/22/2024 HEPATITIS B VACCINE Aged Out No longe r eligible based on patient's age to complete this topic HIB VACCINE Aged Out No longer eligi ble based on patient's age to complete this topic HPV VACCINE Aged Out No longer eligi ble based on patient's age to complete this topic MENINGOCOCCAL (Group B) VACCINE SHARED DECISION-MAKING Aged Out No longer eligible based on patient's age to complete this topic MENINGOCOCCAL GROUPS A/C/Y/W VACCINE Aged Out No longer eligible based on patient's age to complete this topic Insurance [employer] MEDICARE ADV Care Teams Senior Net Software Engineer Relationship Specialty Start Date End Date Lona Martínez [address] [facility] [address] [place] [address] PCP - General Family Medicine 11/22/24
--- OUTSIDE RECORDS SUMMARY | 2025-08-28 07:13 | XMS_ITS | Clinical Summary ---
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 mechanisms 06/09/2019 Family History Relation Name Status Comments Father Mother Social History Tobacco Use Types Packs/Day Years Used Date Smoking Tobacco: Never Smokeless Tobacco: Never Alcohol Use Standard Drinks/Week Comments Yes 0 (1 standard drink = 0.6 oz pur e alcohol) AUDIT-C Answer Date Recorded Frequency of Alcohol Consumption Monthly or less 06/09/2019 Average Number of Drinks Not on file 019 Frequency of Binge Drinking Not on file 05/26 PHQ-2 Answer Date Recorded PHQ-2 Score 0 06/23/2019 Comments Unknown Sex and Gender Information Value Date Recorded Sex Assigned at Not on file Legal Sex Female 9:33 AM CDT Gender Identity Not on file Sexual Orientation Not on file Last Filed Vital Signs Vital Sign Reading Time Taken Comments Blood Pressure 128/62 06/16/2019 12:20 PM CDT Pulse 68 06/09/2019 1:18 PM CDT Temperature - - Respiratory Rate 16 06/09/2019 1:18 PM CDT Oxygen Saturation 56% 06/09/2019 1:18 PM CDT Inhaled Oxygen Concentration - - Weight 91.2 kg (201 lb) 06/09/2019 1:18 PM CDT Height 157.5 cm (5' 2) 06/09/2019 1:18 PM CDT Body Mass Index 36.76 06/09/2019 1:18 PM CDT Plan of Treatment Health Maintenance Due Date Last Done Comments Hepatitis C Virus (HCV) Screening 1940 TdaP Immunization 1940 Respiratory Syncytial Virus (RSV) Immunization (Adult) (1 - 1-dose 75+ series) 2015 Zoster Immunization (2 of 3) 01/21/2016 11/26/2015 Influenza Immunization (#1) 2025 10/0 10/2017, 07/19/2018, 07/22/2017, Additional history exists SARS-COV-2 Immunization () 06/26/2025 Pneumococcal Immunization (50+ years) Completed 07/22/2017, 07/20/2017, 11/26/2015 Pneumococcal Immunization Combined Discontinued 07/22/2017, 07/20/2017, 11/26/2015 Hepatitis B Immunization Aged Out No longer eligible based on patient's age to complete this topic Human Papillomavirus (HPV) Immunization Aged Out No longer eligible based on patient's age to complete this topic Meningococcal Immunization (ACWY) Aged Out No longer eligible based on patient's age to complete this topic Rotavirus Immunization Aged Out No lo nger eligible based on patient's age to complete this topic Insurance MEDICARE C ESSENCE Care Teams Security Incident Response Specialist Relationship Specialty Start Date End Date Horacio Mcdonald DO [address] [place] [id number] PCP - General Family Medicine 05/26/19
--- OUTSIDE RECORDS SUMMARY | 2025-08-28 07:13 | XMS_ITS | Encounter Summary ---
Author Organization [facility] Address [facility] [place] [address] Care Team Providers Care Chlorinator Name Role Phone Alessandra Sarabia RN Unavailable [phone] Lona Martínez MD Primary Care Provider + Jani Washington MD Unavailable [phone] Jewel Walker MD Unavailable [phone] John Cervantes MD Unavailable [phone] Julio Claudio MD Unavailable [phone] Encounter Details Date Type Department Care Team (Latest Contact Info) Description 07/17/2025 Results Follow-Up [facility], [address] [address] [place] [address] USE ECHOCARDIOGRAM W CON Social History Tobacco Use Types Packs/Day Years Used Date Smoking Tobacco: Former Cigarettes 1 24 0 10/26/1974 - 10/26/1998 Smokeless Tobacco: Former Comments:The provider can pr ovide you with [...] materials from doctor or pharmacy Never 08/25/2023 [facility] Utilities Answer Date Recorded In the past 12 months has e [employer], [employer], oil, or water [employer] threatened to shut off services in your [...] week 06/19/2023 How often do you attend episcopalian or temple serv ices? Never 06/19/2023 Do you belong to any clubs o r organizations such as episcopalian groups, unions, fraternal or athletic groups, or school groups? No 06/19/2023 How often do you attend meet ings of the clubs or organizations you belong to? Never 06/19/2023 Are you , , di vorced, , never , or living with a partner? 06/19/2023 AUDIT-C Answer Date Recorded Q1: How often do you have a drink containing alc ohol? Monthly or less 07/04/2025 Q2: How many drinks containi ng alcohol do you have on a typical day when you are drinking? 1 or 2 07/04/2025 Q3: How often do you have si x or more drinks on one occasion? Never 07/04/2025 Overall Financial Resource Strain (CARDIA) Answe r Date Recorded How hard is it for you to pa y for the very basics like food, housing, medical care, and heating? Not hard at all 02/28/2025 PHQ-2 Answer Date Recorded Patient Health Questionnaire-2 Score 2 07/04/2025 [facility] - Occupational Stress [...] place to sleep or slept in a nursing home (including now)? No 09/29/2023 Housing Stability [...] any time in the past 12 m [facility], were you homeless or living in a nursing home (including now)? No 02/28/2025 Comments No [...] st Contact Info) Description 09/04/2025 4:20 PM ORACLE OBIEE DEVELOPER Allied Health/Nurse Visit [facility], [address] [place] [address] Rick Madison MD Three [facility]. [address] [place] [address] 09/14/2025 1:20 PM ORACLE OBIEE DEVELOPER Office Visit [facility] - [place] [address] [place], [place] [address] Lona Martínez MD [address] [place] [id number] 12/26/2025 2:15 PM ORACLE OBIEE DEVELOPER Office Visit [facility], [address] [place] [address] Roxy Roth, GIN CLERK-C Three [facility]. [address] [place] [address] 01/01/2026 3:00 PM CDT Office Visit [facility] Multispecialty Care - [facility] [address] [facility], [address] [place] [id number] Jani [place] MD [address] [facility] [place] [address] 08/24/2026 2:00 PM CDT Office Visit [facility] Family [facility] [place] [address] [place], [place] [address] Lona Martínez MD [address] [place], [place] [address] documented as of this encounter Goals Goal Patient Goal Type Associated Problems Recent Progress Patient-Stated? Author Health - patient able to perform ADLs independently Lifestyle On track(2024 2:36 PM CDT) No Malena Mcqueen, POLITICAL CARTOONIST Establish Regular Follow-Ups with PCP Lifestyle On [...] Notes Improve Home Support System Care Plan [facility] SOCIAL SUPPORT No Nathalie Arndt BSW Improve Home Support System Care Plan [facility] SOCIAL SUPPORT No Nathalie Arndt BSW documented as of this encounter Visit Diagnoses Not on filedocumented in this encounter Additional Health Concerns Active Problems Noted Date Diagnosed Date Acute blood loss anemia 05/30/2019 [facility] HP SOCIAL SUPPORT 06/08/2019 Assessment Noted Time PHQ-9 Depression Total Score: 6 07/04/20 25 10:29 AM CDT documented as of this encounter Care Teams Chlorinator Relationship Specialty Start Date End Date Lona Martínez MD [address] [place] [address] PCP - General FAMILY PRACTICE 05/03/24 Alessandra Sarabia, RN [address] [place] [address] Development Executive (Ambulatory) REGISTERED NURSE 06/05/23 Jani [place] MD [address] [facility] [address] [place] [address] Physician NEUROMUSCULOSKELETAL MEDICINE 06/28/24 Jewel Walker MD [address] [place] [address] Referring Physician GASTROENTEROLOGY 06/28/24 John Cervantes MD [address] [address] OPHTHALMOLOGY 06/28/24 [place] [address] [place] [address] Consulting Physician CARDIOVASCULAR DISEASE 07/04/25 documented as of this encounter
[2025-08-28 07:14] VITALS: BP 165/77; PULSE 86; RESP 20; O2SAT 97
--- OUTSIDE RECORDS SUMMARY | 2025-08-28 07:14 | XMS_ITS | Encounter Summary ---
Author Organization [facility] Health Address [address] [facility] [place] [address] Care Team Providers Care Food Quality Tester Name Role Phone GatoteresamelissaLona Primary Care Provider [phone] Reason for Visit * Reason Onset Date Comments Question 01/19/2025 Encounter Details Date Type Department Care Team (Late st Contact Info) Description 01/19/2025 Telephone [facility] - RESEARCH ANIMAL FACILITY SUPERVISOR [address] [facility] [address] [place] [address] Any Garcia MD [address] [facility] [address] [place] [address] Question Social History Tobacco Use Types Packs/Day Years Used Date Smoking Tobacco: Former Cigarettes Alcohol Use Standard Drinks/Week Comments Yes 0 (1 standard drink = 0.6 oz pur e alcohol) AUDIT-C Answer Date Recorded Q1: How often do you have a drink containing alc ohol? Never 01/04/2025 Average Number of Drinks Not on file 025 Frequency of Binge Drinking Not on file 12/24 PHQ-2 Answer Date Recorded Patient Health Questionnaire-2 Score 0 11/16/2024 Comments No Sex and Gender Information Value Date Recorded Sex Assigned at Female 11/11/2024 10:27 AM YELLOW PAGES SPACE SALESPERSON Legal Sex Female 5:48 PM YELLOW PAGES SPACE SALESPERSON Gender Identity Female 11/11/2024 10:27 AM YELLOW PAGES SPACE SALESPERSON Sexual Orientation Choose not to disclose 2024 10:27 AM YELLOW PAGES SPACE SALESPERSON documented as of this encounter Miscellaneous Notes * Telephone Encounter - Eda Taylor RN - 01/19/2025 3:49 PM CDT Spoke with patients son He is going to find out the exact verbiage that is needed for a letter and send it back to me via [employer] message. * Telephone Encounter - Hedy Gamboa - 01/19/2025 3:31 PM CDT Rick, son calling to get an order for pt to be discharged back to her living filicity.. Please contact # [phone] documented in this encounter Plan of Treatment Not on file documented as of this encounter Visit Diagnoses Not on filedocumented in this encounter Care Teams Food Quality Tester Relationship Specialty Start Date End Date Lona Martínez [address] [facility] [address] [place] [id number] PCP - General Family Medicine 11/22/24 documented as of this encounter
--- OUTSIDE RECORDS SUMMARY | 2025-08-28 07:15 | XMS_ITS | Encounter Summary ---
Author Organization [facility] Health Address [address] [facility] [place] [address] Care Team Providers Care Camera Repairman Name Role Phone Lona Martínez Primary Care Provider [phone] Reason for Visit * Reason Onset Date Comments Procedure Prior Auth Request 11/24/2024 Encounter Details Date Type Department Care Team (Late st Contact Info) Description 11/24/2024 Telephone [facility] - COMMODITY MANAGER [address] [facility] [address] [place] [address] Any Garcia MD [address] [facility] [address] [place] [address] Procedure Prior Auth Request Social History Tobacco Use Types Packs/Day Years Used Date Smoking Tobacco: Former Cigarettes Alcohol Use Standard Drinks/Week Comments Yes 0 (1 standard drink = 0.6 oz pur e alcohol) PHQ-2 Answer Date Recorded Patient Health Questionnaire-2 Score 0 11/16/2024 Comments No Sex and Gender Information Value Date Recorded Sex Assigned at Female 11/11/2024 10:27 AM AUTOMATION SALES MANAGER Legal Sex Female 5:48 PM AUTOMATION SALES MANAGER Gender Identity Female 11/11/2024 10:27 AM AUTOMATION SALES MANAGER Sexual Orientation Choose not to disclose 2024 10:27 AM AUTOMATION SALES MANAGER documented as of this encounter Miscellaneous Notes * Telephone Encounter - Farida Newby - 11/24/2024 10:44 AM CST [facility] is calling needing auth for pt test on 11-30-24. CB: [phone] Luly FAX: [phone] MATION SALES MANAGER documented in this encounter Plan of Treatment Not on file documented as of this encounter Visit Diagnoses Not on filedocumented in this encounter Additional Health Concerns Infection Onset Date Last Indicated Resolved Time COVID-19 Under Investigation 01/06/2025 01/06/2025 01/06/2025 1:31 PM CDT documented as of this encounter Care Teams Camera Repairman Relationship Specialty Start Date End Date Lona Martínez [address] [facility] [address] [place] [address] PCP - General Family Medicine 11/22/24 documented as of this encounter
--- OUTSIDE RECORDS SUMMARY | 2025-08-28 07:15 | XMS_ITS | Encounter Summary ---
Author Organization [facility] Address [address] [facility] [place] [address] Care Team Providers Care Systems Support Officer Name Role Phone Lona Martínez Primary Care Provider [phone] Encounter Details Date Type Department Care Team (Late st Contact Info) Description 03/31/2018 Lab Requisition [facility] Care DermPath Lab [address] [facility], [facility] [place] [place] [id number] Franck Allen MD [address] [place] [address] Social History Tobacco Use Types Packs/Day Years Used Date Smoking Tobacco: Never Assessed Comments Unknown Sex and Gender Information Value Date Recorded Sex Assigned at Female 11/11/2024 10:27 AM SWITCH ENGINEER Legal Sex Female 5:48 PM SWITCH ENGINEER Gender Identity Female 11/11/2024 10:27 AM SWITCH ENGINEER Sexual Orientation Choose not to disclose 2024 10:27 AM SWITCH ENGINEER documented as of this encounter Plan of Treatment Not on file documented as of this encounter Procedures Procedure Name Priority Date/Time Associated Diagnosis Comments DERMATOPATHOLOGY Routine 03/30/2018 12:0 0 AM CDT documented in this encounter Results * DERMATOPATHOLOGY (03/30/2018 12:00 AM CDT) Case Report Dermatopathology Report Case: [id number] Authorizing Provider: Franck Allen MD Collected: 03/30/2018 12:00 AM Pathologist: Brett David MD Received: 03/31/2018 12:18 PM Specimen: Skin, right lower leg 8 5:38 PM CDT DERMATOPATHOLOGY LABORATORY Final Diagnosis Specimen A. 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 8 5:38 PM CDT DERMATOPATHOLOGY LABORATORY Gross Description Specimen A: Received is one formalin filled container labeled with the patient's name and designated right lower leg. The specimen consists of a punch biopsy measuring [id number], bisected. Jar 0. 8 5:38 PM CDT DERMATOPATHOLOGY LABORATORY Microscopic Description Specimen A. SKIN, right lower leg: Sections show fibrin, neutrophils, and neutrophil fragments near vessels. There are also extravasated erythrocytes and a mixed cellular infiltrate. See direct immunofluorescence results. 8 5:38 PM CDT DERMATOPATHOLOGY LABORATORY Disclaimer An external and internal positive and negative controls are appropriate for the histochemical, immunohistochemical and immunofluorescence stain(s) in this case (if any), except where stated explicitly. The performance characteristics of the stain(s) cited in this report were developed and its performance characteristic determined by the Dermatopathology Laboratory at [facility]. These tests need not be, and therefore are not, approved by the [place] Food and Drug Administration. The tests are used for clinical purposes. Billing Codes Specimen Charges Stain Charges 61596 1 8 5:38 PM CDT DERMATOPATHOLOGY LABORATORY Embedded Images 8 5:38 PM CDT DERMATOPATHOLOGY LABORATORY Pathology/Cytolog y TISSUE SPECIMEN FROM SKIN / Unknown 03/30/2018 03/31/2018 12:18 PM CDT Franck Allen MD LAB - PATHOLOGY/CYTOLOGY ORD ERABLES Final Result DERMATOPATHOLOGY LABORATORY [facility] - Department of Dermatology [facility] [facility], 5th Floor Lab [address] [phone] documented in this encounter Visit Diagnoses Not on filedocumented in this encounter Additional Health Concerns Infection Onset Date Last Indicated Resolved Time COVID-19 Under Investigation 01/06/2025 01/06/2025 01/06/2025 1:31 PM CDT documented as of this encounter Care Teams Systems Support Officer Relationship Specialty Start Date End Date Lona Martínez [address] [facility] [address] [place] [address] PCP - General Family Medicine 11/22/24 documented as of this encounter
--- OUTSIDE RECORDS SUMMARY | 2025-08-28 07:15 | XMS_ITS | Encounter Summary ---
Author Organization [facility] Health Address [address] [facility] [place] [address] Care Team Providers Care Roll Up Operator Name Role Phone GatoLona prieto Primary Care Provider [phone] Encounter Details Date Type Department Care Team (Late st Contact Info) Description 09/01/2022 Lab Requisition [facility] Care DermPath Lab [address] [facility] [place] [phone] Fredis London MD [address] [place] [id number] Social History Tobacco Use Types Packs/Day Years Used Date Smoking Tobacco: Never Assessed Comments Unknown Sex and Gender Information Value Date Recorded Sex Assigned at Female 11/11/2024 10:27 AM OPTICAL FABRICATION TECHNICIAN Legal Sex Female 5:48 PM OPTICAL FABRICATION TECHNICIAN Gender Identity Female 11/11/2024 10:27 AM OPTICAL FABRICATION TECHNICIAN Sexual Orientation Choose not to disclose 2024 10:27 AM OPTICAL FABRICATION TECHNICIAN documented as of this encounter Plan of Treatment Not on file documented as of this encounter Procedures Procedure Name Priority Date/Time Associated Diagnosis Comments DERMATOPATHOLOGY Routine 08/28/2022 12:0 0 AM CDT documented in this encounter Results * DERMATOPATHOLOGY (08/28/2022 12:00 AM CDT) Case Report Dermatopathology Report Case: [id number] Authorizing Provider: Fredis London MD Collected: 08/28/2022 12:00 AM Ordering Location: [facility] DermPath Lab Received: 09/01/2022 05:59 AM Pathologist: Brett David MD Specimen: Skin, right cheek 4:12 PM [facility] DERMATOPATHOLOGY LABORATORY Final Diagnosis Specimen A. 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 Check margins. Path#[id number]. 4:12 PM [facility] DERMATOPATHOLOGY LABORATORY Gross Description Specimen A: Received is one formalin filled container labeled with the patient's name and designated right cheek. The specimen consists of a non-oriented ellipse of skin measuring 14x7x5 mm, bisected. 4:12 PM [facility] DERMATOPATHOLOGY LABORATORY Microscopic Description Specimen A. SKIN, right cheek: Within the dermis there are aggregates of basaloid cells with a high nuclear to cytoplasmic ratio and peripheral palisading. This lesion is not present at the sampled margin of the specimen. There are fibroblasts and collagen bundles oriented parallel to the skin surface with elongated blood vessels, some of which are oriented perpendicular to the skin surface. 4:12 PM [facility] DERMATOPATHOLOGY LABORATORY Disclaimer An external and internal positive and negative controls are appropriate for the histochemical, immunohistochemical and immunofluorescence stain(s) in this case (if any), except where stated explicitly. The performance characteristics of the stain(s) cited in this report were developed and its performance characteristic determined by the Dermatopathology Laboratory at [facility], directed by Dr. Micki David. These tests need not be, and therefore are not, approved by the [place] Food and Drug Administration. The tests are used for clinical purposes. Billing Codes Specimen Charges Stain Charges 40325 1 2 4:12 PM [facility] DERMATOPATHOLOGY LABORATORY Embedded Images 4:12 PM OPTICAL FABRICATION TECHNICIAN DERMATOPATHOLOGY LABORATORY Pathology/Cytolog y TISSUE SPECIMEN FROM SKIN / Unknown 08/28/2022 09/01/2022 5:59 AM OPTICAL FABRICATION TECHNICIAN Fredis London MD LAB - PATHOLOGY/CYTOLOGY ORDER DORIAN Final Result DERMATOPATHOLOGY LABORATORY [facility] - Department of Dermatology [facility] [address] [place] [address], [address] [phone] documented in this encounter Visit Diagnoses Not on filedocumented in this encounter Additional Health Concerns Infection Onset Date Last Indicated Resolved Time COVID-19 Under Investigation 01/06/2025 01/06/2025 01/06/2025 1:31 PM CDT documented as of this encounter Care Teams Roll Up Operator Relationship Specialty Start Date End Date Lona Martínez [address] [facility] [address] [place] [address] PCP - General Family Medicine 11/22/24 documented as of this encounter
--- OUTSIDE RECORDS SUMMARY | 2025-08-28 07:15 | XMS_ITS | Encounter Summary ---
Author Organization [facility] Health Address [address] [facility] [place] [address] Care Team Providers Care Machine Builder Name Role Phone Lona Martínez Primary Care Provider [phone] Encounter Details Date Type Department Care Team (Late st Contact Info) Description 03/31/2018 Lab Requisition [facility] Care DermPath Lab [address] [facility] [place] [address] Franck Allen MD [address] [place] [address] Social History Tobacco Use Types Packs/Day Years Used Date Smoking Tobacco: Never Assessed Comments Unknown Sex and Gender Information Value Date Recorded Sex Assigned at Female 11/11/2024 10:27 AM COMMERCIAL INTERIOR DESIGNER Legal Sex Female 5:48 PM COMMERCIAL INTERIOR DESIGNER Gender Identity Female 11/11/2024 10:27 AM COMMERCIAL INTERIOR DESIGNER Sexual Orientation Choose not to disclose 2024 10:27 AM COMMERCIAL INTERIOR DESIGNER documented as of this encounter Plan of Treatment Not on file documented as of this encounter Procedures Procedure Name Priority Date/Time Associated Diagnosis Comments IMMUNOFLUORESCENT STUDY DERM Routine 03/30/2018 12:00 AM CDT documented in this encounter Results * IMMUNOFLUORESCENT STUDY DERM (03/30/2018 12:00 AM CDT) Case Report Dermatopathol ogy Report Case: [id number] Authorizing Provider: Franck Allen MD Collected: 03/30/2018 12:00 AM Pathologist: Brett David MD Received: 03/31/2018 12:19 PM Specimen: Skin, right lower leg 8 5:39 PM CDT DERMATOPATHOLOGY LABORATORY Final Diagnosis Specimen A. SKIN, right lower leg: VASCULAR IgG AND C3 AND COLLOID BODIES (L98.9) (see microscopic description and comment) (see fixed tissue results, [id number]) 8 5:39 PM CDT DERMATOPATHOLOGY LABORATORY at 1736 CDT Direct Immunofluorescence Report - Specimen A Specimen A IgA IgM IgG C3 CollV Fibrinogen Epidermis Negative Negative Negative Negative Negative Negative Basement Membrane Negative Negative Negative Negative 2+ Negative Vessels Negative Negative 2+ 1+ 2+ 2+ Interstitium Colloid bodies Colloid bodies Negative Negative Negative Non specific 8 5:39 PM CDT DERMATOPATHOLOGY LABORATORY Clinical History R/O vasculitis. 8 5:39 PM CDT DERMATOPATHOLOGY LABORATORY Gross Description Specimen A: Received is one Dusty's media filled container labeled with the patient's name and designated right lower leg. The specimen consists of a punch biopsy measuring [id number]. The specimen is submitted in whole for direct immunofluores cence testing. 8 5:39 PM CDT DERMATOPATHOLOGY LABORATORY Microscopic Description Specimen A. SKIN, right lower leg: Controls were run in parallel. There are vascular deposits with IgG and C3. There is IgA and IgM in the papillary dermis, consistent with colloid bodies. Collagen IV stains the basement membrane zone and vessels. Fibrinogen shows vascular staining. COMMENT: These direct immunofluores cence findings are consistent with a vasculitis. Colloid bodies represent dyskeratotic keratinocytes that can be seen in lichenoid / interface dermatitis or in areas of chronic irritation / rubbing. See fixed tissue results. 8 5:39 PM CDT DERMATOPATHOLOGY LABORATORY Disclaimer An external and internal positive and negative controls are appropriate for the histochemical , immunohistoch emical and immunofluores cence stain(s) in this case (if any), except where stated explicitly. The performance characteristi cs of the stain(s) cited in this report were developed and its performance characteristi c determined by the Dermatopathol ogy Laboratory at [facility]. These tests need not be, and therefore are not, approved by the [place] Food and Drug Administratio n. The tests are used for clinical purposes. Billing Codes Specimen Charges Stain Charges 32533 73036 17924 57995 13218 24000 1 1 1 1 1 1 8 5:39 PM CDT DERMATOPATHOLOGY LABORATORY Embedded Images 8 5:39 PM CDT DERMATOPATHOLOGY LABORATORY Pathology/Cytolog y TISSUE SPECIMEN FROM SKIN / Unknown 03/30/2018 03/31/2018 12:19 PM CDT Franck Allen MD LAB - PATHOLOGY/CYTOLOGY ORD ERABLES Final Result DERMATOPATHOLOGY LABORATORY [facility] - Department of Dermatology [address] [place] [address] [address] Floor Lab [address] [phone] documented in this encounter Visit Diagnoses Not on filedocumented in this encounter Additional Health Concerns Infection Onset Date Last Indicated Resolved Time COVID-19 Under Investigation 01/06/2025 01/06/2025 01/06/2025 1:31 PM CDT documented as of this encounter Care Teams Machine Builder Relationship Specialty Start Date End Date Lona Martínez [address] [address] PCP - General Family Medicine 11/22/24 documented as of this encounter
--- OUTSIDE RECORDS SUMMARY | 2025-08-28 07:15 | XMS_ITS | Encounter Summary ---
Author Organization [facility] Health Address [address] [place] [address] Care Team Providers Care Scale Agent Name Role Phone GatoteresamelissaLona Primary Care Provider [phone] Reason for Visit * Reason Onset Date Comments Order 11/23/2024 Encounter Details Date Type Department Care Team (Late st Contact Info) Description 11/23/2024 Telephone [facility] [address] [facility] [address] [place] [address] Any Garcia MD [address] [facility] [address] [place] [address] Order Social History Tobacco Use Types Packs/Day Years Used Date Smoking Tobacco: Former Cigarettes Alcohol Use Standard Drinks/Week Comments Yes 0 (1 standard drink = 0.6 oz pur e alcohol) PHQ-2 Answer Date Recorded Patient Health Questionnaire-2 Score 0 11/16/2024 Comments No Sex and Gender Information Value Date Recorded Sex Assigned at Female 11/11/2024 10:27 AM BROADCAST MAINTENANCE ENGINEER Legal Sex Female 5:48 PM BROADCAST MAINTENANCE ENGINEER Gender Identity Female 11/11/2024 10:27 AM BROADCAST MAINTENANCE ENGINEER Sexual Orientation Choose not to disclose 2024 10:27 AM BROADCAST MAINTENANCE ENGINEER documented as of this encounter Miscellaneous Notes * Telephone Encounter - Hedy Gamboa - 11/23/2024 12:27 PM CST Luly Gonzalez calling to get a pre certification for patient to have a ct so the abdomin, chest and pelvis.. FX# [phone] CB# [phone] DCAST MAINTENANCE ENGINEER documented in this encounter Plan of Treatment Not on file documented as of this encounter Visit Diagnoses Not on filedocumented in this encounter Additional Health Concerns Infection Onset Date Last Indicated Resolved Time COVID-19 Under Investigation 01/06/2025 01/06/2025 01/06/2025 1:31 PM CDT documented as of this encounter Care Teams Scale Agent Relationship Specialty Start Date End Date Lona Martínez [address] [address] PCP - General Family Medicine 11/22/24 documented as of this encounter
--- OUTSIDE RECORDS SUMMARY | 2025-08-28 07:15 | XMS_ITS | Encounter Summary ---
Author Organization [facility] Health Address [address] [facility] [place] [address] Care Team Providers Care Oven Heater Name Role Phone GatoLona prieto Primary Care Provider [phone] Encounter Details Date Type Department Care Team (Late st Contact Info) Description 05/21/2022 Lab Requisition [facility] Care DermPath Lab [address] [facility] [place] [address] Fredis London MD [address] [place] [id number] Social History Tobacco Use Types Packs/Day Years Used Date Smoking Tobacco: Never Assessed Comments Unknown Sex and Gender Information Value Date Recorded Sex Assigned at Female 11/11/2024 10:27 AM SKILLED LABOR Legal Sex Female 5:48 PM SKILLED LABOR Gender Identity Female 11/11/2024 10:27 AM SKILLED LABOR Sexual Orientation Choose not to disclose 2024 10:27 AM SKILLED LABOR documented as of this encounter Plan of Treatment Not on file documented as of this encounter Procedures Procedure Name Priority Date/Time Associated Diagnosis Comments DERMATOPATHOLOGY Routine 05/19/2022 3:33 AM CDT documented in this encounter Results * DERMATOPATHOLOGY (05/19/2022 3:33 AM CDT) Case Report Dermatopathology Report Case: [id number] Authorizing Provider: Fredis London MD Collected: 05/19/2022 03:33 AM Ordering Location: [facility] DermPath Lab Received: 05/21/2022 08:15 AM Pathologist: Brett David MD Specimen: Skin, right cheek 3:00 PM CDT DERMATOPATHOLOGY LABORATORY Final Diagnosis Specimen A. SKIN, right cheek: BASAL CELL CARCINOMA, NODULAR TYPE (C44.319) 2 3:00 PM CDT DERMATOPATHOLOGY LABORATORY at 1500 CDT Clinical History [facility]. Path# [id number] 2 3:00 PM CDT DERMATOPATHOLOGY LABORATORY Gross Description Specimen A: Received is one formalin filled container labeled with the patient's name and designated right cheek. The specimen consists of a shave biopsy measuring [id number]. Jar 0. 3:00 PM CDT DERMATOPATHOLOGY LABORATORY Microscopic Description Specimen A. SKIN, right cheek: Within the dermis there are aggregates of basaloid cells with a high nuclear to cytoplasmic ratio and peripheral palisading. 2 3:00 PM CDT DERMATOPATHOLOGY LABORATORY Disclaimer An external and internal positive and negative controls are appropriate for the histochemical, immunohistochemical and immunofluorescence stain(s) in this case (if any), except where stated explicitly. The performance characteristics of the stain(s) cited in this report were developed and its performance characteristic determined by the Dermatopathology Laboratory at [facility], directed by Dr. Micki David. These tests need not be, and therefore are not, approved by the [place] Food and Drug Administration. The tests are used for clinical purposes. Billing Codes Specimen Charges Stain Charges 56821 1 2 3:00 PM CDT DERMATOPATHOLOGY LABORATORY Embedded Images 2 3:00 PM CDT DERMATOPATHOLOGY LABORATORY Pathology/Cytolo gy TISSUE SPECIMEN FROM SKIN / Unknown 05/19/2022 3:33 AM CDT 05/21/2022 8:15 AM CDT us Fredis London MD LAB - PATHOLOGY/CYTOLOGY ORDER DORIAN Final Result DERMATOPATHOLOGY LABORATORY [facility] - Department of Dermatology [facility] [address] [place] [address], [address] [phone] documented in this encounter Visit Diagnoses Not on filedocumented in this encounter Additional Health Concerns Infection Onset Date Last Indicated Resolved Time COVID-19 Under Investigation 01/06/2025 01/06/2025 01/06/2025 1:31 PM CDT documented as of this encounter Care Teams Oven Heater Relationship Specialty Start Date End Date Lona Martínez [address] [facility] [address] [place] [address] PCP - General Family Medicine 11/22/24 documented as of this encounter
--- OUTSIDE RECORDS SUMMARY | 2025-08-28 07:16 | XMS_ITS | Encounter Summary ---
Author Organization [facility] Address [facility] [place] [address] Care Team Providers Care Preparation Plant Supervisor Name Role Phone Horacio Mcdonald DO Primary Care Provider + Lesia Martinez RN Unavailable [phone] Wong Zambrano DO Primary Care Provider [phone] Alessandra Sarabia RN Unavailable [phone] Willard Barksdale DO Primary Care Provider [phone] Willard Barksdale DO Primary Care Provider [phone] Alessandra Sarabia RN Unavailable [phone] Alex Cooley MD Unavailable [phone] Lona Martínez MD Primary Care Provider + Jani Washington MD Unavailable [phone] Jewel Walker MD Unavailable [phone] John Cervantes MD Unavailable [phone] Julio Claudio MD Unavailable [phone] Encounter Details Date Type Department Care Team (Late Contact Info) Description 05/31/2019 Hospital Follow-up Call [facility] [place] [address] Jenny Bhakta Social History Tobacco Use Types Packs/Day Years Used Date Smoking Tobacco: Former Cigarettes 1 20 1 979 - 1998 Smokeless Tobacco: Never Alcohol Use Standard Drinks/Week Comments Yes 1.7 (1 standard drink = 0.6 oz p ure alcohol) social events PHQ-2 Answer Date Recorded PHQ-2 Score 1 01/23/2019 Comments No Sex and Gender Information Value Date Recorded Sex Assigned at Female 05/24/2019 6:18 PM CDT Legal Sex Female 1:30 AM CDT Gender Identity Female 05/24/2019 6:18 PM CDT Sexual Orientation Straight 05/24/2019 6: 18 PM CDT documented as of this encounter Functional Status * RETIRED Are you deaf or do you have serious difficulty hearing Answer Date of Assessment Author Status No 05/24/2019 6:28 PM CDT Activ e * RETIRED Are you blind or do you have serious difficulty seeing, even when wearing glasses? Answer Date of Assessment Author Status No 05/24/2019 6:28 PM CDT Activ e * Do you have serious difficulty walking or climbing stairs? Answer Date of Assessment Author Status Yes 05/24/2019 6:28 PM CDT Nirali Mathur RN Active * Do you have difficulty dressing or bathing? Answer Date of Assessment Author Status No 05/24/2019 6:28 PM CDT Nirali Mathur RN Active * Because of a physical, mental, or emotional condition, do you have difficulty doing errands alone such as visiting a doctor's office or shopping? Answer Date of Assessment Author Status No 05/24/2019 6:28 PM VANNAT Nirali Mathur RN Active documented as of this encounter Mental Status * Because of a physical, mental, or emotional condition, do you have serious difficulty concentrating, remembering, or making decisions? Answer Entry Date Author Status No 05/24/2019 6:28 PM VANNAT Nirali Mathur RN Active documented in this encounter Plan of Treatment Upcoming Encounters Date Type Department Care Team (Late Contact Info) Description 09/04/2025 4:20 PM PICTURE ENLARGER Allied Health/Nurse Visit [facility] [address] [facility], [address] [place] [address] Rick Madison MD Three [facility]. [address] [place] [address] 09/14/2025 1:20 PM PICTURE ENLARGER Office Visit [facility] Family Medicine - [address] [place], [place] [address] Lona Martínez MD [address] [place] [phone] 12/26/2025 2:15 PM PICTURE ENLARGER Office Visit [facility] [address] [facility], [address] [place] [address] Roxy Roth, REAL ESTATE AGENT/BROKER-C [address] [facility]. [address] [place] [address] 01/01/2026 3:00 PM CDT Office Visit [facility] Multis[facility]ialty Care - [facility] [address] [facility], [address] [place] [address] Jani Washington MD [address] [facility] [place] [address] 08/24/2026 2:00 PM CDT Office Visit [facility] Family [facility] [address] [place], [place] [address] Lona Martínez MD [address] [place], [place] [phone] documented as of this encounter Goals Goal Patient Goal Type Associated Problems Recent Progress Patient-Stated? Author Know what s/s should trigger a call to provider. Care Plan Acute blood loss anemia No Lesia Martinez, RN Understand your medications and know how, why, and when to take them. Care Plan Acute blood loss anemia No Lesia Martinez, ANA MARIA Note: See Notes documented as of this encounter Visit Diagnoses Not on filedocumented in this encounter Additional Health Concerns Active Problems Noted Date Diagnosed Date Acute blood loss anemia 05/30/2019 Infection Onset Date Last Indicated Resolved Time COVID-19 Patient Reported Po sitive Comment:09/28/23 +COVID From [place] 09/29/2023 09/29/2023 3 3:13 PM PICTURE ENLARGER Assessment Noted Time PHQ-9 Depression Total Score: 2 10/20/20 18 8:31 AM PICTURE ENLARGER documented as of this encounter Care Teams Preparation Plant Supervisor Relationship Specialty Start Date End Date Horacio Mcdonald DO [address] [place] [address] PCP - General FAMILY PRACTICE 10/15/18 01/17/21 Wong Zambrano DO [facility] [place], [place] [address] PCP - General FAMILY PRACTICE 01/18/21 10/14/22 Willard Barksdale [place] [place] [address] PCP - General FAMILY PRACTICE 11/20/22 11/23/22 Willard Barksdale DO [address] [place] [address] PCP - General FAMILY PRACTICE 11/24/22 04/17/24 Lona Martínez MD [address] [address] PCP - General FAMILY PRACTICE 05/03/24 Lesia Martinez RN [address] [place], [place] [address] Home Child Care Provider (Ambulatory) REGISTERED NURSE 05/25/19 06/28/19 Alessandra Sarabia RN [address] [place] [address] Home Child Care Provider (Ambulatory) REGISTERED NURSE 10/06/22 11/04/22 Alessandra Sarabia RN [address] [place], [place] [address] Home Child Care Provider (Ambulatory) REGISTERED NURSE 06/05/23 Alex Cooley MD [address] [place] [phone] GASTROENTEROLOGY 10/13/23 10/13/24 Jani Washington MD [facility] [address] Physician NEUROMUSCULOSKELETAL MEDICINE 06/28/24 Jewel Walker MD [facility] [place] [address] Referring Physician GASTROENTEROLOGY 06/28/24 John Cervantes MD [address] [address] OPHTHALMOLOGY 06/28/24 [place] [address] [place] [address] Consulting Physician CARDIOVASCULAR DISEASE 07/04/25 documented as of this encounter
== END 2025-08-28 07:25 ==
LOC: ANHED 07:09
PROVIDERS: Emergency Provider Student in an Organized Health Care Education/Training Program; PCP Student in an Organized Health Care Education/Training Program
DX: M25.512 Pain in left shoulder (principal); M25.561 Pain in right knee; G20.A1 Parkinson's disease without dyskinesia, without mention of fluctuations; W06.XXXA Fall from bed, initial encounter
CPT/HCPCS: 73030; 73060; 73552; 73562; 99284; A9270

== ENCOUNTER 2025-08-28 07:31 | Emergency (ER) | payer MEDICARE, SELFPAY ==
--- OUTSIDE RECORDS SUMMARY | 2014-03-13 08:53 | XMS_ITS | Continuity of Care Document ---
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 Name Role Phone Josse Marlow MD Unavailable Unavailable Allergies, Adverse Reactions, Alerts Substance Reaction Status Criticality levofloxacin Active No Information Medications Medication Instructions Dosage Effective Dates (start - stop) Status Comments KEFLEX 500MG TAKE 4 CAPSULES BY MOUTH 1 HOUR PRIOR TO DENTAL PROCEDURE - Active Ultram 50 mg tablet take 1-2 tablets by oral route every 4-6 hours as needed for pain - Active APRISO (unknown strength) Not Available - Active MERCAPTOPURINE (unknown strength) Not Available - Active SIMVASTATIN (unknown strength) Not Available - Active HYDROCHLOROTHIAZIDE (unknown strength) Not Available - Active LOSARTAN POTASSIUM (unknown strength) Not Available - Active TIROSINT (unknown strength) Not Available - Active VENLAFAXINE HCL (unknown strength) Not Available - Active FISH OIL (unknown strength) Not Available - Active PRILOSEC (unknown strength) Not Available - Active TRAMADOL HCL (unknown strength) Not Available - Active Keflex 500 mg capsule take 4 tabs one hour prior to dental procedure - No Longer Active Procedures Procedure Date OFFICE/OUTPATIENT VISIT EST MU Reporting MU Reporting MU Reporting POSTOP FOLLOW-UP VISIT MU Reporting OFFICE/OUTPATIENT VISIT EST MU Reporting OFFICE/OUTPATIENT VISIT EST POSTOP FOLLOW-UP VISIT MU Reporting POSTOP FOLLOW-UP VISIT MU Reporting OFFICE/OUTPATIENT VISIT EST Advance Directives Directive Yes / No Effective Date File Name No Information Encounters Encounter Description Practice Location Reason(s) For Visit Diagnoses Date Provider Providers Copied on Encounter [facility] , [address] [facility] [address] [address], [place], [address], [place] tel:[phone] [facility] No Information 4 Dusek Josse. [address] , [place], [place], [id number] . tel: [phone] OFFICE/OUTPAT IENT VISIT EST [facility] , [address] [facility] [address] [address], [place], [address], [place] tel:[phone] [facility] left knee (chief complaint) Knee joint replacement 4 Dusek Josse. [address] , [place], [place], [address] . tel: [phone] Referring Provider: Maxi Rincon, [place], [address]. tel:[phone] [facility] , [address] [facility] [address], [address], [place] tel:[phone] [facility] No Information 0 3 Dusek Josse. [address] [place], [place], [address] . tel: [phone] [facility] , [address], [address], [place] tel:[phone] [facility] No Information 0 3 Dusek Josse. [address] [place], [place], [address] . tel: [phone] [facility] , [address], [address], [place] tel:[phone] [facility] left knee (chief complaint) Knee joint replacement [address], [id number] . tel: [phone] Referring Provider: Maxi Rincon, [address] [facility], [place], [address]. tel:[phone] [facility] , [address] [facility] [address] [address], [place], [address], [place] [phone] [facility] left knee (chief complaint) Knee joint replacement 3 [facility]. [address] [facility], [place], [place], [address] . tel: [phone] Referring Provider: Maxi Rincon, [address] [facility], [place], [address]. tel:[phone] OFFICE/OUTPAT IENT VISIT EST [facility] , [address] [facility] [address] [address], [place], [address], [place] tel:[phone] [facility] left knee (chief complaint) Osteoarthros is, unspecified whether generalized or localized, involving lower leg February-0 3 [facility]. [address], [id number] . tel: [phone] Referring Provider: Maxi Rincon, [address] [facility], [place], [address]. tel:[phone] [facility] , [address], [address], [place] tel:[phone] [facility] Left knee orthovisc #3 (chief complaint) Osteoarthros is, unspecified whether generalized or localized, involving lower leg Dec- 3 [facility]. [address] [facility], [place], [place], [id number] . tel: [phone] Referring Provider: Maxi Rincon, [address] [facility], [place], [address]. tel:[phone] [facility] , [address], [address], [place] tel:[phone] [facility] left knee orthovisc #2 (chief complaint) Osteoarthros is, unspecified whether generalized or localized, involving lower leg Dec- [address] [address], [place], [place], [address] . tel: [phone] Referring Provider: Maxi Rincon, [address] [facility], [place], [address]. tel:[phone] OFFICE/OUTPAT IENT VISIT EST [facility] , [address] [facility] [address] [address], [place], [address], [place] tel:[phone] [facility] left knee (chief complaint) Unspecified arthropathy involving lower legOsteoarth rosis, unspecified whether generalized or localized, involving lower leg 3 [address]. [address] , [place], [place], [address] . tel: [phone] Referring Provider: Maxi Rincon, [address] [facility], [place], [address]. tel:[phone] [facility] , [address], [address], [place] [phone] [facility] left knee (chief complaint) Osteoarthros is, unspecified whether generalized or localized, involving lower legOther tear of cartilage or meniscus of knee, current 3 [address] Ari[address]. [address], [id number] . tel: [phone] Referring Provider: Maxi Rincon, [address] [facility], [place], [address]. tel:[phone] [facility] , [address], [address], [place] tel:[phone] [facility] S/P L knee A/ (chief complaint) Osteoarthros is, unspecified whether generalized or localized, involving lower legOther tear of cartilage or meniscus of knee, current [address], [place], [address] . tel: [phone] Referring Provider: Maxi Rincon, [address] [place], [address]. tel:[phone] OFFICE/OUTPAT IENT VISIT EST [facility] , [address] [facility] [address], [place], [address], [phone] [facility] left knee (chief complaint) Osteoarthros is, unspecified whether generalized or localized, involving lower legOther tear of cartilage or meniscus of knee, currentHyper tension, Unspecified [address], [place], [place], [address] . tel: [phone] Referring Provider: Maxi Rincon, [address] [place], [address]. tel:[phone] Family History Family Member Type Diagnosis Age At Onset Mother Problem (finding) Heart disease Father Problem (finding) Renal disease Payers Payer name Insurance type Covered democrat ID Authoriza tion(s) No Information Social History Type Description Quantity Date Captured Comments Sex Female Smoking Status No Information Chief Complaint And Reason For Visit No Information Reason For Referral Reason For Referral No Information Plan Of Treatment Date Type Action Status Referral Ordered: RADEX KNE COMPL 4/MORE VIEWS LT knee ordered Referral Ordered: INJECTION LT knee Appointment date/timeframe: 12/30/2012 ordered Referral Ordered: RADEX KNE COMPL 4/MORE VIEWS LT ordered History Of Present Illness Encounter Date Complaint History Of Prese nt Illness No Information Functional Status Date Functional Assessmen t No Information Instructions Date Instruction Additional Infor mation Continue medication as prescribe d Discussed post-operative precaut ions Physical activity counseling Rel ated to Dietary surveillance counseling Continue medication as prescribe d Activity as tolerated Discussed post-operative precaut ions Activity as tolerated Assessments Type Assessment Date No Information Patient Care Teams Name Effective Dates (start - stop) Status Members No Information
--- OUTSIDE RECORDS SUMMARY | 2014-03-13 08:53 | XMS_ITS | Continuity of Care Document ---
Author Organization [facility] Address [address] [place] [address] Phone Care Team Providers Care Skin Care Therapist Name Role Phone Josse Marlow MD Unavailable [...] Providers Copied on Encounter [facility] , [address] [facility] [address] [address], [place], [address], [place] tel:[phone] [facility] No Information 4 Dus[address] Josse. [address] , [place], [place], [id number] . tel: [phone] OFFICE/OUTPAT IENT VISIT EST [facility] , [address] [facility] [address] [address], [place], [address], [place] tel:[phone] [facility] left knee (chief complaint) Knee joint replacement 4 Dus[address] Josse. [address] , [place], [place], [address] . tel: [phone] Referring Provider: Maxi Rincon, [place], [address]. tel:[phone] [facility] , [address] [facility] [address], [address], [place] tel:[phone] [facility] No Information 0 3 Dusek Josse. [address] [place], [place], [address] . tel: [phone] [facility] , [address], [address], [place] tel:[phone] [facility] No Information 0 3 Dus[address] Josse. [address] [place], [place], [address] . tel: [phone] [facility] , [address], [address], [place] tel:[phone] [facility] left knee (chief complaint) Knee joint replacement [address], [id number] . tel: [phone] Referring Provider: Maxi Rincon, [address] [facility], [place], [address]. tel:[phone] [facility] , [address] [facility] [address] [address], [place], [address], [place] [phone] [facility] left knee (chief complaint) Knee joint replacement 3 [facility]. [address] [facility], [place], [place], [address] . tel: [phone] Referring Provider: Maxi Rincon, [address] [facility], [place], [address]. tel:[phone] OFFICE/OUTPAT IENT VISIT EST [facility] , [address] [facility] [address] [address], [place], [address], [place] tel:[phone] [facility] left knee (chief complaint) Osteoarthros is, unspecified whether generalized or localized, involving lower leg February-0 3 [facility]. [address], [id number] . tel: [phone] Referring Provider: Maxi Rincon, [address] [facility], [place], [address]. tel:[phone] [facility] , [address], [address], [place] tel:[phone] [facility] Left knee orthovisc #3 (chief complaint) Osteoarthros is, unspecified whether generalized or localized, involving lower leg Dec- 3 [facility]. [address] [facility], [place], [place], [address] . tel: [phone] Referring Provider: Maxi Rincon, [address] [facility], [place], [address]. tel:[phone] [facility] , [address], [address], [place] tel:[phone] [facility] left knee orthovisc #2 (chief complaint) Osteoarthros is, unspecified whether generalized or localized, involving lower leg Dec- [address] [address], [place], [place], [address] . tel: [phone] Referring Provider: Maxi Rincon, [address] [facility], [place], [address]. tel:[phone] OFFICE/OUTPAT IENT VISIT EST [facility] , [address] [facility] [address] [address], [place], [address], [place] tel:[phone] [facility] left knee (chief complaint) Unspecified arthropathy involving lower legOsteoarth rosis, unspecified whether generalized or localized, involving lower leg 3 [address]. [address] , [place], [place], [address] . tel: [phone] Referring Provider: Maxi Rincon, [address] [facility], [place], [address]. tel:[phone] [facility] , [address], [address], [place] [phone] [facility] left knee (chief complaint) Osteoarthros is, unspecified whether generalized or localized, involving lower legOther tear of cartilage or meniscus of knee, current 3 [address] Ari[address]. [address], [id number] . tel: [phone] Referring Provider: Maxi Rincon, [address] [facility], [place], [address]. tel:[phone] [facility] , [address], [address], [place] tel:[phone] [facility] S/P L knee A/ (chief complaint) Osteoarthros is, unspecified whether generalized or localized, involving lower legOther tear of cartilage or meniscus of knee, current [address], [place], [address] . tel: [phone] Referring Provider: Maxi Rincon, [address] [place], [address]. tel:[phone] OFFICE/OUTPAT IENT VISIT EST [facility] , [address] [facility] [address], [place], [address], [phone] [facility] left knee (chief complaint) Osteoarthros is, unspecified whether generalized or localized, involving lower legOther tear of cartilage or meniscus of knee, currentHyper tension, Unspecified [address], [place], [place], [address] . tel: [phone] Referring Provider: Maxi Rincon, [address] [place], [address]. tel:[phone] Family History Family Member Type Diagnosis Age At Onset Mother Problem (finding) Heart disease Father Problem (finding) Renal disease Payers Payer name Insurance type Covered green party ID Authoriza tion(s) No Information Social History [...] medication as prescribe d Activity as tolerated Activity as tolerated Discussed post-operative precaut ions Assessments Type Assessment Date No Information Patient Care Teams Name Effective Dates (start - stop) Status Members No Information
--- OUTSIDE RECORDS SUMMARY | 2025-08-27 12:25 | XMS_ITS | Encounter Summary ---
Author Organization [facility] Healthcare Address [address] [place] [address] Care Team Providers Care Director Community Organization Name Role Phone Willard Barksdale DO Unavailable Jani Washington MD Unavailable [phone] Lona Martínez MD Primary Care Provider Encounter Details Date Type Department Care Team (Latest Contact Info) Description 08/27/2025 12:25 PM NUCLEAR ENGINEERING TECHNICIAN - 08/27/2025 11:59 PM NUCLEAR ENGINEERING TECHNICIAN Hospital Encounter [facility]) [address] [place] [address] Arrived Discharge Disposition: Discharge to home or self care Social History Tobacco Use Types Packs/Day Years Used Date Smoking Tobacco: Former Cigarettes Q uit: 1998 Passive Smoke Exposure: Past Smokeless Tobacco: Never AUDIT-C Answer Date Recorded Q1: How often do you have a drink containing alcohol? Never 01/09/2025 Q2: How many drinks containi ng alcohol do you have on a typical day when you are drinking? Patient does not drink Q3: How often do you have si x or more drinks on one occasion? Never 01/09/2025 Personal Safety Answer Date Recorded Have you ever been in or are you currently in a harmful physical or emotional relationship or is someone making you feel afraid or unsafe? Denies 02/02/2025 Comments Unknown Sex and Gender Information Value Date Recorded Sex Assigned at Not on file Legal Sex Female 5:27 AM NUCLEAR ENGINEERING TECHNICIAN Gender Identity Female 11/22/2024 10:23 AM NUCLEAR ENGINEERING TECHNICIAN Sexual Orientation Straight 11/22/2024 10 :23 AM NUCLEAR ENGINEERING TECHNICIAN documented as of this encounter Medications at Time of Discharge acetaminophen (TYLENOL) 325 mg tabletIndications :Pain Take 1 tablet (325 mg total) by mouth every 4 (four) hours as needed for pain 10/13/2023 aspirin 81 mg enteric coated tablet Take 1 tablet (81 mg total) by mouth daily 09/24/2023 calcium-magnesium -zinc 333-133-5 mg tablet Take 1 tablet by mouth every morning carbidopa-levodop a (Sinemet) 25-100 mg per tabletIndications :Parkinsonism Take 2 tablets by mouth 2 (two) times a day Morning and lunch time 120 tablet 11 02/02/2025 carbidopa-levodop a CR (SINEMET CR) 25-100 mg per CR tablet Take 1 tablet by mouth nightly cholecalciferol (VITAMIN D-3) 2000 unit tabletIndications :Vitamin D Deficiency Take 1 tablet (2,000 Units total) by mouth every morning 09/15/2024 cyanocobalamin (Vitamin B-12) 100 mcg tabletIndications :Prevention of Vitamin B12 Deficiency Take 1 tablet (100 mcg total) by mouth every morning enoxaparin 40 mg/0.4 mL syringe kitIndications:De ep Vein Thrombosis Prevention Inject 40 mg under the skin log sorter before breakfast furosemide (LASIX) 40 mg tabletIndications :hypertension Take 1 tablet (40 mg total) by mouth every morning 09/27/2024 gabapentin (NEURONTIN) 300 mg capsuleIndication s:Neuropathic Pain Take 1 capsule (300 mg total) by mouth nightly 1 02/08/2019 ibuprofen (ADVIL,MOTRIN) 600 mg tabletIndications :Pain Take 1 tablet (600 mg total) by mouth every 6 (six) hours as needed for pain levothyroxine (SYNTHROID) 137 mcg tablet 12/10/2024 multivit with ouz-BP-oypgfjdy 0.4-600 mg-mcg tabletIndications :supplement Take 1 tablet by mouth every morning Nystop powderIndications :cutaneous candidiasis Apply 1 Application topically every morning 11/25/2024 omega-3 fatty acids 1,000 mg capsuleIndication s:supplement Take 1,000 mg by mouth every morning omeprazole (PriLOSEC) 20 mg capsuleIndication s:Stress Ulcer Prophylaxis Take 1 capsule (20 mg total) by mouth every morning 12/10/2024 ondansetron (ZOFRAN) 4 mg tablet Take 1 tablet (4 mg total) by mouth every 8 (eight) hours as needed for nausea or vomiting oxyCODONE (ROXICODONE) 5 mg immediate release tabletIndications :Pain Take 1 tablet (5 mg total) by mouth every 4 (four) hours as needed for pain potassium chloride ER 20 mEq CR tabletIndications :supplement Take 1 tablet (20 mEq total) by mouth every morning 07/14/2024 senna (SENOKOT) 8.6 mg tabletIndications :constipation Take 1 tablet by mouth 2 (two) times a day documented as of this encounter Discharge Disposition Disposition Code Departure Means Destination Discharge to home or self care documented in this encounter Plan of Treatment Not on file documented as of this encounter Procedures Procedure Name Priority Date/Time Associated Diagnosis Comments XR TRANSFER OF OUTSIDE FILMS Routine 08/27/2025 12:25 PM NUCLEAR ENGINEERING TECHNICIAN documented in this encounter Results * XR Outside Reference (08/27/2025 12:25 PM NUCLEAR ENGINEERING TECHNICIAN) Impressions [facility] - 08/27/2025 12:25 PM NUCLEAR ENGINEERING TECHNICIAN These images are for Reference purposes only and have not been reviewed by [facility]. There will be no report generated by a [facility] Radiologist. Narrative [facility] - 08/27/2025 12:25 PM NUCLEAR ENGINEERING TECHNICIAN EXAMINATION: Images For Reference Purposes Only us [place] COLE IMG XR PROCEDURES Final Result [facility] documented in this encounter Visit Diagnoses Not on filedocumented in this encounter Care Teams Director Community Organization Relationship Specialty Start Date End Date Lona Martínez MD [address] [address] PCP - General Family Medicine 01/20/25 Willard Barksdale DO [address] [place], [place] [id number] Family Medicine 03/28/24 Jani [place] [address] Referring Physician Neurology 03/28/24 documented as of this encounter
--- OUTSIDE RECORDS SUMMARY | 2025-08-27 12:26 | XMS_ITS | Encounter Summary ---
Author Organization [facility] Healthcare Address [address] [place] [address] Care Team Providers Care Vegetable Picker Name Role Phone Willard Barksdale Rick BREWSTER Unavailable Jani Washington MD Unavailable [phone] Lona Martínez MD Primary Care Provider Reason for Referral * MRI/CAT/PET Scan (Routine) - Pending Review Specialty Diagnoses / Procedures Referred By Anselmo zamorano Referred To Contact Procedures [place] [address] [place] [address] Phone: tel: fax: Referral ID Status Reason Start Date Expiration Date V isits Requested Visits Authorized [id number] Pending Review 08/27/2025 09/26/2026 1 1 ADVOCATE Reason for Visit * MRI/CAT/PET Scan (Routine) - Pending Review Specialty Diagnoses / Procedures Referred By Anselmo zamorano Referred To Contact Procedures [place] [address] [place] [address] Phone: tel: fax: Referral ID Status Reason Start Date Expiration Date V isits Requested Visits Authorized [id number] Pending Review 08/27/2025 09/26/2026 1 1 Encounter Details Date Type Department Care Team (Latest Contact Info) Description 08/27/2025 12:26 PM CARE ADVOCATE - 08/27/2025 11:59 PM CARE ADVOCATE Hospital Encounter [facility]) [address] [place] [address] Arrived Discharge Disposition: Discharge to home or [...] on file Legal Sex Female 5:27 AM CARE ADVOCATE Gender Identity Female 11/22/2024 10:23 AM CARE ADVOCATE Sexual Orientation Straight 11/22/2024 10 :23 AM CARE ADVOCATE documented as of this encounter Medications at [...] Prevention Inject 40 mg under the skin extruding department supervisor before breakfast furosemide (LASIX) 40 mg tabletIndications [...] (SYNTHROID) 137 mcg tablet 12/10/2024 multivit with jqa-ZE-jgdeegql 0.4-600 mg-mcg tabletIndications :supplement Take 1 tablet [...] CT OUTSIDE REFERENCE Routine 08/27/2025 12:26 PM CARE ADVOCATE documented in this encounter Results * MSK CT Outside Reference (08/27/2025 12:26 PM CARE ADVOCATE) Impressions [facility] - 08/27/2025 12:26 PM CARE ADVOCATE These images are for Reference purposes only and have not been reviewed by [facility] Radiology. There will be no report generated by a [facility] Radiologist. Narrative [facility] - 08/27/2025 12:26 PM CARE ADVOCATE EXAMINATION: Images For Reference Purposes Only [facility] COLE IMG CT PROCEDURES Final Result Performing Organization Address City/State/[facility] Co de Phone Number [facility] documented in this encounter Visit Diagnoses Not on filedocumented in this encounter Care Teams Vegetable Picker Relationship Specialty Start Date End Date Lona Martínez MD [address] [facility] [address] [place] [address] PCP - General Family Medicine 01/20/25 Willard Barksdale [place] [address] Family Medicine 03/28/24 Jani Washington [place] [address] Referring Physician Neurology 03/28/24 documented as of this encounter
--- NOTE | ~2025-08-28 | XR_ITS ---
EXAMINATION: XR tibia fibula LT 2V DATE: 08/28/2025 08:03 INDICATION: Swelling and bruising to the left lower leg TECHNIQUE: Anteroposterior and lateral views of the left tibia and fibula were obtained. COMPARISON: None. FINDINGS: Right total knee arthroplasty with patellar resurfacing which appears well seated in near-anatomic alignment. No periprosthetic lucency to suggest loosening or infection. No fracture. Moderate-sized plantar calcaneal and small Achilles calcaneal spurs. Mild osteoarthritis at the left ankle and few joints in the visualized left foot. Soft tissue swelling and subcutaneous edema throughout the left calf. A few likely phleboliths medial to the left knee and some atherosclerotic calcifications at the posterior left calf. IMPRESSION: 1. No acute osseous abnormality. Reviewed, dictated and finalized at location A. LSTERY HANDLER
--- OUTSIDE RECORDS SUMMARY | 2025-08-28 07:34 | XMS_ITS | Encounter Summary ---
Author Organization [facility] Address [facility] [place] [address] Care Team Providers Care Section Gang Worker Name Role Phone FroydeniseAlessandra RN Unavailable [phone] Lona Martínez MD Primary Care Provider + Jani Washington MD Unavailable [phone] Jewel Walker MD Unavailable [phone] John Cervantes MD Unavailable [phone] Julio Claudio MD Unavailable Encounter Details Date Type Department Care Team [...] materials from doctor or pharmacy Never 08/25/2023 [facility] Utilities Answer Date Recorded In the past 12 months has e [employer], [employer], oil, or water [employer] threatened to shut off services in your [...] week 06/19/2023 How often do you attend baptism or anabaptism serv ices? Never 06/19/2023 Do you belong to any clubs o r organizations such as baptism groups, unions, fraternal or athletic groups, or [...] Recorded Patient Health Questionnaire-2 Score 2 08/05/2025 [facility] Occupat ional [facility] - Occupational Stress Questionnaire Answer [...] place to sleep or slept in a long-term (including now)? No 09/29/2023 Housing Stability Vital Sign Answer Pieter e Recorded In the last 12 months, was t here a time when you were not able to pay the mortgage or rent on time? No 02/28/2025 In the past 12 months, how m any times have you moved where you were living? 1 02/28/2025 At any time in the past 12 m [facility], were you homeless or living in a long-term (including now)? No 02/28/2025 Comments No Sex [...] st Contact Info) Description 09/04/2025 4:20 PM SENIOR PROJECT COORDINATOR [facility] Health[facility] [address] [address] Rick Madison MD Three [facility]. [address] [place] [address] 09/14/2025 1:20 PM SENIOR PROJECT COORDINATOR Office Visit [facility] [address] [place] [address] Lona Martínez MD [address] [place] [address] 12/26/2025 2:15 PM SENIOR PROJECT COORDINATOR Office Visit [facility] THREE [facility], [address] [place] [address] Roxy Roth, CIRCUIT RECORDER-C [facility]. [address] [place] [address] 01/01/2026 3:00 PM CDT Office Visit [facility] Multispecialty Care - [facility] 3 [facility], [address] [place] [address] Jani Washington MD [address] [facility] [place] [address] 08/24/2026 2:00 PM CDT Office Visit [place] [address] [place] [address] Lona Martínez MD [address] [place] [phone] documented as of this encounter Goals Goal Patient Goal Type Associated Problems Recent Progress Patient-Stated? Author Health - patient able to perform ADLs independently Lifestyle On track(2024 2:36 PM CDT) Malena Amezcua, PYTHON DJANGO DEVELOPER Establish Regular Follow-Ups with PCP Lifestyle On [...] Notes Improve Home Support System Care Plan [facility] SOCIAL SUPPORT No Nathalie Arndt BSW Improve Home Support System Care Plan [facility] SOCIAL SUPPORT No Nathalie Arndt BSW documented as of this encounter Visit Diagnoses Not on filedocumented in this encounter Additional Health Concerns Active Problems Noted Date Diagnosed Date Acute blood loss anemia 05/30/2019 [facility] SOCIAL SUPPORT 06/08/2019 Assessment Noted Time PHQ-9 Depression Total Score: 6 08/05/20 25 10:01 AM CDT documented as of this encounter Care Teams Section Gang Worker Relationship Specialty Start Date End Date Lona Martínez MD [address] [facility] [address] [place] [address] PCP - General FAMILY PRACTICE 05/03/24 Alessandra Sarabia, RN [address] [place] [address] High School Coordinator (Ambulatory) REGISTERED NURSE 06/05/23 Jani Washington MD [address] [place] [phone] Physician NEUROMUSCULOSKELETAL MEDICINE 06/28/24 Jewel Walker MD [facility] [place] [address] Referring Physician GASTROENTEROLOGY 06/28/24 John Cervantes MD [address] [address] OPHTHALMOLOGY 06/28/24 [place] [address] [place] [address] Consulting Physician CARDIOVASCULAR DISEASE 07/04/25 documented as of this encounter
--- OUTSIDE RECORDS SUMMARY | 2025-08-28 07:34 | XMS_ITS | Clinical Summary ---
Author Organization [facility] Address [address] [place] [address] Phone Care Team Providers Care Store Operations Specialist Name Role Phone Horacio Mcdonald Melanie [...] topic Insurance MEDICARE C [place] Care Teams Store Operations Specialist Relationship Specialty Start Date End Date Horacio Mcdonald DO [address] [place] [address] PCP - General Family Medicine 05/26/19
--- OUTSIDE RECORDS SUMMARY | 2025-08-28 07:34 | XMS_ITS | Encounter Summary ---
Author Organization [facility] Address [facility] [place] [address] Care Team Providers Care Endband Cutter Hand Name Role Phone Cornell Alessandra Person RN Unavailable [phone] Lona Martínez MD Primary Care Provider + Jani Washington MD Unavailable [phone] Jewel Walker MD Unavailable [phone] John Cervantes MD Unavailable [phone] Julio Claudio MD Unavailable [phone] Encounter Details Date Type Department Care Team (Latest Contact Info) Description 08/09/2025 Results Follow-Up [facility] Multispecialty Care - [facility] [address] [facility] [address], [address] [place] [phone] Jani Washington MD [address] [place] [address] VITAMIN B6, VITAMIN B-12, VITAMIN B1 THIAMINE, [...] materials from doctor or pharmacy Never 08/25/2023 [facility] Utilities Answer Date Recorded In the past 12 months has e [employer], gas, oil, or water [employer] threatened to shut off services in your [...] week 06/19/2023 How often do you attend latter-day or evangelical serv ices? Never 06/19/2023 Do you belong to any clubs o r organizations such as latter-day groups, unions, fraternal or athletic groups, or [...] Recorded Patient Health Questionnaire-2 Score 2 08/05/2025 [facility] - Occupational Stress Questionnaire Answer [...] place to sleep or slept in a halfway (including now)? No 09/29/2023 Housing Stability Vital Sign Answer Pieter e Recorded In the last 12 months, was t here a time when you were not able to pay the mortgage or rent on time? No 02/28/2025 In the past 12 months, how m any times have you moved where you were living? 1 02/28/2025 At any time in the past 12 m [facility], were you homeless or living in a halfway (including now)? No 02/28/2025 Comments No Sex [...] st Contact Info) Description 09/04/2025 4:20 PM [employer] Allied Health/Nurse Visit [facility] [address] [facility], [address] [place] [address] Rick Madison MD [address] [facility]. [address] [place] [address] 09/14/2025 1:20 PM [employer] Office Visit [address] [place] [address] Lona Martínez MD [facility] [address] [place] [id number] 12/26/2025 2:15 PM [employer] Office Visit [facility] [address] [facility], [address] [place] [address] Roxy Roth, SCHOOL LEADER-C [address] [facility]. [address] [place] [address] 01/01/2026 3:00 PM CDT Office Visit [facility] Multispecialty Care - [facility] [address] [facility] [address], [address] [facility] [place] [phone] Jani Washington MD [address] [place] [address] 08/24/2026 2:00 PM CDT Office Visit [address] [place] [address] Lona Martínez MD [address] [place] [address] documented as of this encounter Goals Goal Patient Goal Type Associated Problems Recent Progress Patient-Stated? Author Health - patient able to perform ADLs independently Lifestyle On track(2024 2:36 PM CDT) No Malena Mcqueen, [employer] SPECIALIST Establish Regular Follow-Ups with PCP Lifestyle On [...] Notes Improve Home Support System Care Plan [facility] HP SOCIAL SUPPORT No Nathalie Arndt BSW Improve Home Support System Care Plan [facility] HP SOCIAL SUPPORT No Arndt, Nathalie L, [place] [employer] SALESPERSON documented as of this encounter Visit Diagnoses Not on filedocumented in this encounter Additional Health Concerns Active Problems Noted Date Diagnosed Date Acute blood loss anemia 05/30/2019 [facility] HP SOCIAL SUPPORT 06/08/2019 Assessment Noted Time PHQ-9 Depression Total Score: 6 08/05/20 25 10:01 AM CDT documented as of this encounter Care Teams Endband Cutter Hand Relationship Specialty Start Date End Date Lona Martínez MD [address] [place] [address] PCP - General FAMILY PRACTICE 05/03/24 Alessnadra Sarabia, RN [address] [place] [address] Commercial Print Salesman (Ambulatory) REGISTERED NURSE 06/05/23 Jani Washington MD [address] [facility] [address] [place] [address] Physician NEUROMUSCULOSKELETAL MEDICINE 06/28/24 Jewel Walker MD [address] [place] [address] Referring Physician GASTROENTEROLOGY 06/28/24 John Cervantes MD [address] [address] OPHTHALMOLOGY 06/28/24 [place] [address] [place] [address] Consulting Physician CARDIOVASCULAR DISEASE 07/04/25 documented as of this encounter
--- OUTSIDE RECORDS SUMMARY | 2025-08-28 07:34 | XMS_ITS | Clinical Summary ---
Author Organization [facility] Address [address] [place] [address] Care Team Providers Care Certified Hyperbaric Technician Name Role Phone FroydeniseAlessandra RN Unavailable [phone] Lona Martínez MD Primary Care Provider + Jani Washington MD Unavailable [phone] Jewel Walker MD Unavailable [phone] John Cervantes MD Unavailable [phone] Julio Claudio MD Unavailable Allergies Active Allergy Reactions Criticality Noted Date Comments Levofloxacin Anaphylaxis,Rash,Swelling High 11/14/19 17 Medications fish oil (OMEGA-3 FATTY ACID) 1000 MG Cap capsuleIndications: supplement Take 1 capsule (1,000 mg total) by mouth daily. Indications: supplement Active vitamin B-12 100 MCG tabletIndications:s upplement Take 1 tablet (100 mcg total) by mouth daily. Indications: supplement Active multi vitamin/minerals tabletIndications:s upplement Take 1 tablet by mouth daily. Indications: supplement Active Misc. 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 30 tablet 09/24/20 23 Active calcium carb-cholecalcifero l (CALTRATE+D) 600-10 MG-MCG Tab tablet Take 1 tablet by mouth daily. Active docusate sodium (COLACE) 100 MG capsule Take 1 capsule (100 mg total) by mouth 2 (two) times daily as needed for Constipation. 30 capsule 10/13/20 23 Active magnesium oxide (MAG-OX) 400 (240 Mg) MG tablet Take 1 tablet (400 mg total) by mouth daily. 30 tablet 10/13/20 23 Active sulfaSALAzine (AZULFIDINE) 500 MG tabletIndications:C rohn's disease with complication, unspecified gastrointestinal tract location ([facility]) Take 2 tablets (1,000 mg total) by mouth 2 (two) times daily. 120 tablet 2 11/25/19 24 Active PARoxetine (PAXIL) 40 MG tabletIndications:A nxiety associated with Depression Take 1 tablet (40 mg total) by mouth every morning. Indications: Anxiousness associated with Depression 90 tablet 3 04/14/20 24 Active gabapentin (NEURONTIN) 300 MG capsuleIndications: Neuropathic Pain Take 1 capsule (300 mg total) by mouth nightly at bedtime. Indications: Neuropathic Pain 90 capsule 3 05/03/20 24 Active levothyroxine (SYNTHROID) 137 MCG tabletIndications:H ypothyroidism Take 1 tablet (137 mcg total) by mouth every morning. Indications: Underactive Thyroid 90 tablet 05/03/20 24 Active omeprazole EC (PRILOSEC OTC) 20 MG tabletIndications:N onerosive Gastroesophagel Reflux Disease Take 1 tablet (20 mg total) by mouth daily. Indications: Nonerosive GERD 90 tablet 3 05/03/20 24 Active potassium chloride CR (KLOR-CON M) 20 MEQ tabletIndications:E ssential hypertension Take 1 tablet (20 mEq total) by mouth daily. 60 tablet 3 07/14/20 24 Active furosemide (LASIX) 40 MG tabletIndications:C hronic diastolic congestive heart failure ([facility]) Take 1 tablet (40 mg total) by mouth daily. 90 tablet 1 08/24/20 24 Active Vitamin D3 (CHOLECALCIFEROL) 50 mcg tabletIndications:V itamin D deficiency TAKE 1 CAPSULE BY MOUTH EVERY DAY 30 tablet 3 09/15/20 24 Active carbidopa-levodopa (SINEMET) 25-100 MG tabletIndications:P arkinson's disease without dyskinesia, with fluctuating manifestations (CMS/HCC HHS/HCC) Take 2 tablets at 7:30AM, 2 tablets at 12:30PM, and 1 tablet at 5:30PM 450 tablet 11 02/14/20 25 Active Senna (SENOKOT) 8.6 MG tablet Take 1 tablet (8.6 mg total) by mouth as needed for Constipation. Active Eluvwfh-Htexyvzqw-G inc-Vit D3 333 MG-133 MG-5 MG-1.7 MCG Tab Take 1 tablet by mouth daily. Active LYCOPENE OR Take 1 tablet by mouth daily. Active omeprazole (PRILOSEC) 20 MG capsule 12/10/19 25 Active ondansetron (ZOFRAN-ODT) 4 MG disintegrating tablet Take 1 tablet (4 mg total) by mouth every 6 (six) hours as needed. 01/07/20 25 Active acetaminophen (TYLENOL) 500 MG tabletIndications:O steoarthritis of knee, unspecified laterality, unspecified osteoarthritis type Take 2 tablets (1,000 mg total) by mouth every 8 (eight) hours as needed for Pain. 180 tablet 3 08/25/20 25 025 Active acetaminophen (TYLENOL) 325 MG tablet Take 1 tablet (325 mg total) by mouth every 4 (four) hours as needed. 30 tablet 10/13/20 23 025 Discontin ued(Alter hannah therapy) acetaminophen (TYLENOL) 500 MG tabletIndications:O steoarthritis of knee, unspecified laterality, unspecified osteoarthritis type Take 1 tablet (500 mg total) by mouth every 6 (six) hours as needed for Pain. 30 tablet 08/22/20 25 025 Discontin ued(Dose adjustmen t) Active Problems Problem Noted Date Diagnosed Date GIB (gastrointestinal bleeding) 02/27/2025 Overview (03/17/2025): Admitted 03/04/25 with GI bleed. Colonoscopy and EGD reassuring except for hiatal hernia and 2 polyps. Assessment & Plan (03/17/2025 2:16 PM CDT): Repeat CBC today. Repeat again in 1 month. Orders provided to give to Geri Johnston to draw there in 1 month. 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 Seeing [facility] Limb dystonia 09/20/2024 JARAMILLO (dyspnea on exertion) 08/24/2024 Care Management 06/21/2024 Cryptogenic stroke 10/07/2023 Overview (06/28/2024): Admitted at [facility] in 09/2023. Weakness on the left side. Has some persistent weakness. Now using wheeled walker. She is doing physical therapy now. She is working on balance. She notes some improvements in strength. She has been able to lift herself up off the floor when she has fallen. Assessment & Plan (06/28/2024 1:40 PM CDT): Improvements in overall strength with physical therapy. Recommend she continue with this. Status post placement of implantable loop record er 10/07/2023 Overview (10/07/2023): MDT [id number] implanted 06/22/23 for Cryptogenic Stroke. Acquired hypothyroidism 09/24/2023 Overview (06/28/2024): Patient takes levothyroxine 137 mcg daily. TSH normalized in April 2024. Assessment & Plan (03/17/2025 2:16 PM CDT): Will repeat TSH to ensure she remains at goal. Continue levothyroxine. Assessment & Plan (06/28/2024 1:43 PM CDT): Controlled. Continue levothyroxine 137 mcg daily. Assessment & Plan (05/03/2024 2:52 PM CDT): Will repeat TSH to evaluate further. Continue levothyroxine 137 mcg daily. It is possibly elevated due to being an acute phase reactant. Primary osteoarthritis involving multiple joints 09/24/2023 Generalized weakness 09/21/2023 Overview (09/27/2024): She continues to have falls at [facility]. She is doing some therapy. 3 falls in the last several months. Assessment & Plan (09/27/2024 1:32 PM CONSULTING NURSE): Encouraged continued participation in physical therapy. Essential tremor 08/25/2023 Facial droop 06/04/2023 Overview (05/03/2024): Chronic since stroke in August 2023. Chronic diastolic congestive heart failure 12/03 Overview (09/27/2024): Weight dropped 50 pounds while hospitalized in September 2023 when she had acute heart failure. Her baseline weight is 163 pounds. She has been taking her Lasix 40 mg daily. Over the last 2 weeks her weight has been consistently elevated as high as 168 pounds. She did see cardiology a few weeks ago and was given an echo which noted reduced ejection fraction. There was concern of fluid on her lungs but patient reports that her furosemide was not adjusted. She does note increased voiding after taking her furosemide. Assessment & Plan (03/17/2025 2:18 PM CDT): Euvolemic despite recent hospitalization. Continue to monitor weight. Assessment & Plan (09/27/2024 1:32 PM CONSULTING NURSE): Appears hypervolemic and fluid overloaded today. Normal oxygen. No acute distress. Will increase furosemide with a as needed dose at noon for weights greater than 165 pounds. Request an update from [facility] on her weight daily and to notify provider anytime extra dose of furosemide is administered. Will involve CCM to see if they can assist in monitoring for this as well. CMP and BNP today. Assessment & Plan (06/28/2024 1:40 PM CDT): Appears euvolemic today. Appropriately she took a dose of Lasix to avoid further increases in her weight. Recommend she continue with daily weights and update me or chronic care management team if she continues to have this issue. Assessment & Plan (05/03/2024 2:51 PM CDT): Appears euvolemic today. Remains off Lasix. Will need to monitor for changes in weight. Hiatal hernia 10/30/2022 Class 1 obesity due to exces s calories with serious comorbidity and body mass index (BMI) of 34.0 to 34.9 in adult 03/14/2022 Parkinson's disease without dyskinesia or fluctuating manifestations 12/15/2021 Overview (05/03/2024): Takes sinemet. Sees Dr. Ayala Gets botox injections. Mostly has tremor in left hand but it is managed well. Assessment & Plan (05/03/2024 2:53 PM CDT): Appears very well-managed with Sinemet and Botox injections. She does take oxybutynin for supposed overactive bladder however this could represent neurogenic bladder. Other insomnia 05/27/2021 Overview (06/28/2024): Takes gabapentin. This has worked well to manage her symptoms. Assessment & Plan (06/28/2024 1:38 PM CDT): Controlled. Continue gabapentin. Assessment & Plan (05/03/2024 2:52 PM CDT): Stable and well-managed with gabapentin. Continue. Nocturnal leg cramps 05/27/2021 Bilateral lower extremity edema 05/27/2021 OAB (overactive bladder) 05/27/2021 Overview (05/03/2024): Takes oxybutynin. Patient reports she does wear depends. She has had multiple falls in the last year. It has improved with physical therapy but continues to be a problem. Assessment & Plan (05/03/2024 2:54 PM CDT): Discussed concern about oxybutynin due to beers criteria and her frequent falls. She is agreeable to a trial without oxybutynin to see if her bladder symptoms are manageable simply using depends instead of medication. She will update me if she would like to resume this. Chronic kidney disease, stage 2 (mild) 9 Mixed hyperlipidemia 06/05/2019 Overview (05/03/2024): Not currently on medication. Essential hypertension 10/15/2018 Overview (09/27/2024): Today blood pressure is controlled. Occasionally blood pressures are elevated. Assessment & Plan (09/27/2024 1:33 PM CONSULTING NURSE): Chronic and controlled. Currently only on furosemide. Assessment & Plan (06/28/2024 1:42 PM CDT): Controlled. Continue to monitor. Assessment & Plan (05/03/2024 2:51 PM CDT): Today she is not controlled. Uncertain of history with hypertension. She will have her blood pressure checked at [facility] and we will do a short interval follow-up to establish baseline blood pressure readings. BMP today. Anxiety 10/15/2018 Major depression in remission 10/15/2018 Overview (06/28/2024): Takes paxil. Has taken it for years. She reports a long history of depression and is hesitant to make any adjustments to the medication. Assessment & Plan (06/28/2024 1:43 PM CDT): Discussed the option of reducing Paxil and she is hesitant to do so. It is stable. We will continue Paxil. Assessment & Plan (05/03/2024 2:52 PM CDT): Appears stable. Could consider slow reductions in Paxil in the future to reduce polypharmacy. Gastroesophageal reflux disease without esophagi tis 10/15/2018 Overview (05/03/2024): Takes omeprazole. Without medication, symptoms immediately return. Assessment & Plan (05/03/2024 2:54 PM CDT): Continues on omeprazole. Stable. Benefits outweigh risk of long-term use. Crohn's disease 10/15/2018 Overview (05/03/2024): Takes sulfasalazine. Sees Dr. Coy. Well controlled. Last flare 2022. Osteoarthritis of knee 03/22/2013 Diverticulosis Resolved Problems Problem Noted Date Diagnosed Date Resolved Date BMI 36.0-36.9,adult 07/04/2019 03/14/20 Anemia due to acute blood loss 05/24/2019 05/27/2021 Infestation by bed bug 12/22/201805/03 Anemia, unspecified type 10/15/201811/2020 Allergy to levofloxacin 05/12/200010/28 Encounters Date Type Department Care Team Description 08/25/[address] [place] [address] Lona Martínez MD Information 08/25/2025 Orders Only [facility] [place] [address] [place] [address] Princess Flower LPN 08/23/[address] [place] [address] Lona Martínez MD Medication Problem 08/22/[address] [place] [address] Lona Martínez MD Medication 08/22/2025 Patient Outreach [address] [place] [address] Alessandra Sarabia RN Care Management 08/11/2025 Scan HEALTH INFO SRVCS Scanned, [facility] 08/10/2025 MyChart Message Enc [facility] [place] [address] [place] [address] Lona Martínez MD Request for ortho referral 08/09/2025 MyChart Message Enc [facility] [address] [facility], [address] [place] [phone] Felecia, [facility] Provider Results 08/09/2025 Results [facility] [address] [facility], [address] [place] [phone] Jani Washington MD VITAMIN B6, VITAMIN B-12, VITAMIN B1 THIAMINE, FOLIC ACID SERUM 08/08/2025 2:00 PM CDT Office Visit [facility] [place] [address] [place] [address] Lona Martínez MD Medicare Wellness (Patient presents today for their Medicare Annual Wellness Visit.) 08/08/2025 Travel 08/06/2025 Scan [employer] SRVCS Scanned, [facility] 08/03/2025 Telephone [facility] [place] [id number] [facility] [address] [place] [phone] Jani Washington MD Question 07/31/2025 5:00 PM CDT Allied Health/Nurse Visit [facility] [place] [address] Rick Madison MD Remote Device Check 07/31/2025 4:33 PM CDT - 07/31/2025 11:59 PM CDT Hospital Encounter [facility] [address] [facility] [place] [address] Jani Washington MD Discharge Disposition: Home or Self Care (Routine Discharge) 07/31/2025 3:40 PM CDT Office Visit [facility] [address] [facility], [address] [place] [phone] Jani Washington MD Follow Up (5mo/Pt states she has fallen at least once/week for the past 3 weeks /Complains of left wrist pains ) 07/31/2025 Travel 07/17/2025 Results Follow-Up [facility], [address] [place] [address] Angie Zhang RN USE ECHOCARDIOGRAM W CON 07/14/2025 4:00 PM CDT - 07/14/2025 11:59 PM CDT Hospital Encounter [facility] Non Invasive Cardiology [address] [facility] [place] [address] Julio Claudio MD Discharge Disposition: Home or Self Care (Routine Discharge) 07/14/2025 Travel 07/10/[address] [place] [address] Lona Martínez MD Question 07/06/2025 Telephone [facility] [address] [place] [address] Lona Martínez MD Information; Fall 07/04/2025 Travel 06/26/2025 4:25 PM CDT Allied Health/Nurse Visit [facility], [facility] [address] [place] [address] Rick Madison MD Remote Patient Monitoring 06/20/2025 2:30 PM CDT Office Visit [facility], [facility] [address] [place] [address] Julio Claudio MD Edema (6 mo follow up); Other (AI) 06/20/2025 Travel 06/06/2025 Scan HEALTH INFO SRVCS Scanned, [facility] 05/30/2025 Patient Outreach [facility] - [place] [address] [place] [address] Alessandra Sarabia, RN Care Management from Last 3 Months Immunizations Immunization Administration Dates Next Due FLUAD (IIV, Trivalent, 0.5 M L Pre-filled Syringe) 08/02/2024 Fluad influenza vaccine, Tai drivalent (aIIV4), Inactivated, adjuvanted, preservative free, 0.5 mL,IM use 07/21/2023 Fluzone High Dose - >Age 65 (Prefilled Syringe) 07/23/2021,08/23/2020,07/19/2018,2016 Influenza (Generic) 08/04/2019, 8,07/22/2017,2015 Influenza Adult (Generic) 07/15/2022,,08/04/2019,2016,10/07/2016,08/26/2016,08/23/2015 MODERNA COVID-19 (12+) MRNA, LNP-S, PF, 100 MCG/ 0.5 ML DOSE 12/25/2020,11/27/2020 MODERNA COVID-19 (12+), MRNA , LNP-S, PF, 50 MCG/0.5 ML (SPIKEVAX) 07/21/2023 MODERNA COVID-19 (GEOTHERMAL OPERATING ENGINEER SAY RICHA), MRNA, LNP-S, PF, 50 MCG/ 0.25 ML DOSE 10/01/2021 Pneumococcal (Pneumovax 23) 11/26/2015 Pneumococcal (Prevnar 13) 07/22/2017,07/20/2017 Shingrix 12/03/2021,10/01/2021 Tdap (Generic) 07/08/2017 Zoster (Zostavax) 92370 Unt/0.65Ml 11/26/2015 Family History Medical History Relation Comments Epilepsy Daughter Hypertension Daughter Lung Disease Daughter Mental Health Daughter Stroke Daughter Arthritis Father Hypertension Father Kidney Disease Father Arthritis Mother Heart Mother Relation Status Comments Daughter Father Mother Social History Tobacco Use Types Packs/Day Years Used Date Smoking Tobacco: Former Cigarettes 1 24 0 10/26/1974 - 10/26/1998 Passive Smoke Exposure: Past Smokeless Tobacco: Never Tobacco Cessation:Counseling Given: Not Answered Comments:The provider can provide you with more information about quitting. Alcohol [...] materials from doctor or pharmacy Never 08/25/2023 [facility] Utilities Answer Date Recorded In the past 12 months has e Shareight, gas, oil, or water [employer] threatened to shut off services in your [...] week 06/19/2023 How often do you attend baptist or judaism serv ices? Never 06/19/2023 Do you belong to any clubs o r organizations such as baptist groups, unions, fraternal or athletic groups, or [...] Recorded Patient Health Questionnaire-2 Score 2 08/05/2025 [facility] - Occupational [...] place to sleep or slept in a fdc (including now)? No 09/29/2023 Housing Stability Vital Sign Answer Pieter e Recorded In the last 12 months, was t here a time when you were not able to pay the mortgage or rent on time? No 02/28/2025 In the past 12 months, how m any times have you moved where you were living? 1 02/28/2025 At any time in the past 12 m [facility], were you homeless or living in a fdc (including now)? No 02/28/2025 Comments No Sex and Gender Information Value Date Recorded Sex Assigned at Female 05/24/2019 6:18 PM CDT Legal Sex Female 1:30 AM CDT Gender Identity Female 05/24/2019 6:18 PM CDT Sexual Orientation Straight 05/24/2019 6: 18 PM CDT Last Filed Vital Signs Vital Sign Reading Time Taken Comments Blood Pressure 102/60 08/08/2025 2:17 PM CDT Pulse 87 08/08/2025 2:17 PM CDT Temperature 37.1 C (98.7 F) 08/08/2025 2:17 PM CDT Respiratory Rate 16 08/08/2025 2:17 PM CDT Oxygen Saturation 94% 08/08/2025 2:17 PM CDT Inhaled Oxygen Concentration - - Weight 79.8 kg (176 lb) 08/08/2025 2:17 PM CDT Height 152.4 cm (5') 08/08/2025 2:17 PM CDT Body Mass Index 34.37 08/08/2025 2:17 PM CDT Plan of Treatment Upcoming Encounters Date Type Department Care Team (Late st Contact Info) Description 09/04/2025 4:20 PM CONSULTING NURSE Allied Health/Nurse [facility] [address] [place] [address] Rick Madison MD [facility]. [facility] [address] [place] [address] 09/14/2025 1:20 PM CONSULTING NURSE Office Visit [facility] [place] [address] [place] [address] Lona Martínez MD [address] [place] [address] 12/26/2025 2:15 PM CONSULTING NURSE Office Visit [facility], [address] [place] [address] Roxy Roth NP-C [facility]. [address] [place] [address] 01/01/2026 3:00 PM CDT Office Visit [facility] - [facility] [address] [facility], [address] [place] [address] Jani Washington MD [address] [place] [address] 08/24/2026 2:00 PM CDT Office Visit [facility] [address] [address] Lona Martínez MD [address] [facility] [address] [place] [address] Health Maintenance Due Date Last Done Comments RSV Immunization or 60+ Years (1 - 1-dose 75+ series) 2015 COVID-19 Vaccine (2024- season) 2025 03/06/2025, 08/02/2024, 07/21/2023, Additional history exists Influenza Adult (#1) 2025 08/02/2024, 07/21/2023, 07/15/2022, Additional history exists Annual Medicare Wellness Visit 08/09/2026 08/08/2025 DTaP, Tdap and Td Vaccines (2 - Td or Tdap) 07/08/2027 07/08/2017 Pneumococcal Vaccine: 50+ Years Completed 07/22/2017, 07/20/2017, 11/26/2015 Zoster Vaccines Completed 12/03/2021, 12/0 04/2021, 11/26/2015 PHQ-2 (Physician Walker) Completed 08/05/2025 Hepatitis A Vaccines Aged Out No long er eligible based on patient's age to complete this topic Meningococcal B Vaccine Aged Out No l onger eligible based on patient's age to complete this topic Meningococcal Vaccine Aged Out No diogo leon eligible based on patient's age to complete this topic RSV Immunizations Under 20 Months Aged Out No longer eligible based on patient's age to complete this topic Goals Goal Patient Goal Type Associated Problems Recent Progress Patient-Stated? Author Health - patient able to perform ADLs independently Lifestyle On track(2024 2:36 PM CDT) No Malena Mcqueen, POLICE CAPTAIN SENIOR Establish Regular Follow-Ups with PCP Lifestyle On track(2024 2:36 PM CDT) No Alessandra Sarabia, ANA MARIA Establish Plan for Symptom Monitoring HTN Lifestyle [...] Notes Improve Home Support System Care Plan [facility] HP SOCIAL SUPPORT No Nathalie Arndt BSW Improve Home Support System Care Plan [facility] HP SOCIAL SUPPORT No Nathalie Arndt BSW Medical Devices Implanted Type Area Street Commissioner Device Identifier Shelf Expiration Date Model / Serial / Lot Implantable Loop Recorder Implantable Loop Recorder [employer] LINQ II / / Knee Components Knee Components Procedures Procedure Name Priority Date/Time Associated Diagnosis Comments FOLIC ACID SERUM Routine 07/31/2025 4:42 PM CDT Balance problem VITAMIN B1 THIAMINE Routine 07/31/2025 4 :42 PM CDT Balance problem VITAMIN B-12 Routine 07/31/2025 4:42 PM CDT Balance problem VITAMIN B6 Routine 07/31/2025 4:42 PM CDT Balance problem USE ECHOCARDIOGRAM W CON Routine 07/14/2025 5:25 PM CDT Essential hypertension from Last 3 Months Results * VITAMIN B-12 (07/31/2025 4:42 PM CDT) VITAMIN B12 S/P/B 505 254 - 1,320 PG/ML 07/31/2025 5:56 PM CDT [facility] 07/31/2025 4:42 PM CDT us Jani Washington MD LABORATORY Final Res ult [facility] [address] [place] [address], [place] [phone] * (ABNORMAL) FOLIC ACID SERUM (07/31/2025 4:42 PM CDT) FOLATE 20.4(H) 3.1 - 17.5 NG/ML 07/31/2025 5:56 PM CDT [facility] 07/31/2025 4:42 PM CDT Jani Washington MD LABORATORY Final Res ult [facility] [address] [place] [address], * VITAMIN B6 (07/31/2025 4:42 PM CDT) VITAMIN B6 S/P/B 5.7 2.1 - 21.7 ng/mL 08/06/2025 4:19 AM CDT [employer] Comment: Vitamin supplementation within 24 hours prior to blood draw may affect the accuracy of the results. This test was developed and its analytical performance characteristics have been determined by [facility] [place], [place]. It has not been cleared or approved by the U.S. Food and Drug Administration. This assay has been validated pursuant to the CLIA regulations and is used for clinical purposes. Test Performed by [facility], [facility], [address] [place] [address] Duane Olson M.D., Ph.D., Director of Laboratories , CLIA [id number] 07/31/2025 4:42 PM CDT Jani Washington MD LABORATORY Final Res ult [employer] [place] [id number] [place], [place] , * VITAMIN B1 THIAMINE (07/31/2025 4:42 PM CDT) VITAMIN B1 S/P/B 29 8 - 30 nmol/L 08/09/2025 2:23 AM CDT [employer] [place] Comment: Vitamin supplementation within 24 hours prior to blood draw may affect the accuracy of the results. This test was developed and its analytical performance characteristics have been determined by [facility] [place], [place]. It has not been cleared or approved by the U.S. Food and Drug Administration. This assay has been validated pursuant to the CLIA regulations and is used for clinical purposes. Test Performed by [facility], [facility], [address] [place] [address] Duane Olson M.D., Ph.D., Director of Laboratories , CLIA [id number] 07/31/2025 4:42 PM CDT us Jani Washington MD LABORATORY Final Res ult [employer] [address] , [place] [phone] * USE ECHOCARDIOGRAM W CON (07/14/2025 5:25 PM CDT) Anatomical Region Laterality Modality NA Echocardiogram 07/14/2025 4:28 PM CDT Narrative 07/16/2025 8:40 AM CDT Echocardiography Report Pat.Name: ADRIANA SMALL Pat.ID: [id number] St.Date: 07/14/2025 Refer.: [id number] KERRIE Navarro EWDPROV EWDPROV Exam Time: 4:28:00 PM Study Type:ECHO WITH CARDIAC DOPPLER COMP Height: 77 in Age: 5 1940,85Y Sex: F BP: 163/88 HR: 67 bpm Sonogrphr: Carlee Will [facility] Pat. Stat.:Outpatient Reason for Study:Shortness of breath History / Clinical:Hypertension, Ex-Smoker, Renal Insufficiency, GERD, Hypothyroidism, Stroke/CVA/TIA Procedures: 2D, M-mode, Doppler, Color Flow, Definity was used to enhance endocardial definition. The study quality is technically difficult. Race: W ++++++++++++++++++++++++++++++++++++ SUMMARY: ++++++++++++++++++++++++++++++++++++ The left ventricular size is normal. Estimated left ventricular ejection fraction is 65-70%. Mild concentric left ventricular hypertrophy. Left ventricular diastolic function is normal. Wall motion appears normal in all segments. The right ventricular size is normal. Right ventricular systolic function is normal. No evidence of ventricular septal defect. The left atrial volume is moderately increased (42-48 ml/M2). Moderate aortic regurgitation. Trace to mild mitral regurgitation. A trace of tricuspid regurgitation. Right ventricular systolic pressure is 30-40 mmHg suggestive of mild pulmonary hypertension. ++++++++++++++++++++++++++++++++++++ FINDINGS: ++++++++++++++++++++++++++++++++++++ LV: The left ventricular size is normal. Estimated left ventricular ejection fraction is 65-70%. Mild concentric left ventricular hypertrophy. Left ventricular diastolic function is normal. WM: Wall motion appears normal in all segments. RV: The right ventricular size is normal. Right ventricular systolic function is normal. IVS: No evidence of ventricular septal defect. LA: The left atrial volume is moderately increased (42-48 ml/M2). RA: Right atrial size is normal. IAS: Atrial septum appears intact. RENUKA: No evidence of pericardial effusion. AO: The sinus of Valsalva measures 3.8cm. The proximal ascending aorta measures 3.9cm. PA: Estimated right atrial pressure of 3 mmHg. SVn: Inferior vena cava is normal. AV: The aortic valve is trileaflet. No evidence of aortic valve stenosis. Moderate aortic regurgitation. MV: Trace to mild mitral regurgitation. No evidence of mitral stenosis. PV: Trace pulmonic regurgitation. No evidence of pulmonic regurgitation. TV: A trace of tricuspid regurgitation. Right ventricular systolic pressure is 30-40 mmHg suggestive of mild pulmonary hypertension. No evidence of tricuspid valve stenosis. ++++++++++++++++++++++++++++++++++++ MEASUREMENTS: ++++++++++++++++++++++++++++++++++++ DOPPLER LVOT LVOTpkPG 4 mmHg LVOTmnPG 3 mmHg LVOTpkVel 102 cm/s (70-110)+ LVOT SV 83 ml LVOT TVI 26.4 cm Right Atrium RA Press 3 mmHg Marquez's Disk 20 Pulmonary Veins PVnpkVeld 54.5 cm/s PVnVs/Vd 1.9 PVnpkVels 104 cm/s PVn A Dur 120 msec AV Forward Flow AV TVI 32.3 cm AV pkPG 8 mmHg AV pkVel 140 cm/s (100-170)+ Area (TVI) 2.57 cm2 (3-5)* AV mnPG 5 mmHg Area (William) 2.29 cm2 (3-5)* AV Regurg Flow AV pkVel 445 cm/s AV P1/2t 439 msec AV pkPG 79 mmHg MV Forward Flow MV DeTm 205 msec MV pkPG 5 mmHg MVA P1/2t 3.67 cm2 (4-6)* MV E/A 0.9 MV P1/2t 60 msec (30-60)+ MV pkE 111 cm/s (60-130) MV mnPG 2 mmHg MV pkA 122 cm/s PV Forward Flow PV pkVel 101 cm/s (60-90)+* PV AC 124 msec PV pkPG 4 mmHg TV Regurg Flow TV pkPG 31 mmHg TV pkVel 277 cm/s (30-70)* Right Ventricle RVsys P 34 mmHg Right Ventricle 16.3 cm/s Lat E' Lat e 8.7 cm/s Lat E/E' Lat E/e 12.8 Med E' Med e 8.92 cm/s Med E/E' Med E/e 12.4 Aortic Valve Aortic Valve Ve 0.73 AV DI Value 0.82 Left Ventricle LV IVRT 114 msec PV Antegrade Flow Acceleration Sl 605 cm/s2 2D Left Ventricle LVIDd 3.4 cm (3.6-5.2)* LV ESV 29.7 ml LVIDs 2.4 cm (2.3-3.9) LV ESV 21.2 ml LngAxd 7.84 cm LVESV BP 26.4 ml LngAxd 7.47 cm LV EF 73.7 % LV EDV 113 ml LV EF 80.4 % LV EDV 108 ml LV EF BP 76.6 % LVEDV BP 113 ml LV SV 83.3 ml LngAxs 6.12 cm LV SV 86.8 ml LngAxs 5.46 cm LV SV BP 86.6 ml LVPW LVPWd 1 cm Ventricular Septum IVSd 1.2 cm Left Atrium LA VOLBP 43.6 ml Aorta Ao Rtd 3.8 cm Ao Asc 3.9 cm (2.1-3.4)* LVOT LVOT 2 cm LVOTArea 3.14 cm2 Ratios IVS Inferior vena cava IVC Diam 12 mm RA Single Plane Right Atrium MO 12 mm Right Atrium Sy 16.3 cm2 Right Atrium Sy 52.5 mm Right Atrium Sy 41.8 ml Right Ventricle Right Ventricle 37 mm Right Ventricle 33 mm Major [place] 82 mm MMODE TA Tricuspid Annul 19.3 mm <Electronic Signature> 07/16/2025 08:40 AM Julio Claudio M.D. Procedure Note Julio Claudio MD - 07/16/2025 Echocardiography Report Pat.Name: ADRIANA SMALL Pat.ID: [id number] .Date: 07/14/2025 Refer.: [id number] KERRIE Navarro EWDPROV EWDPROV Exam Time: 4:28:00 PM Study Type:ECHO WITH CARDIAC DOPPLER COMP Height: 77 in Age: 5 1940,85Y Sex: F BP: 163/88 HR: 67 bpm Sonogrphr: Carlee Will [facility] Pat. Stat.:Outpatient Reason for Study:Shortness of breath History / Clinical:Hypertension, Ex-Smoker, Renal Insufficiency, GERD, Hypothyroidism, Stroke/CVA/TIA Procedures: 2D, M-mode, Doppler, Color Flow, Definity was used to enhance endocardial definition. The study quality is technically difficult. Race: W ++++++++++++++++++++++++++++++++++++ SUMMARY: ++++++++++++++++++++++++++++++++++++ The left ventricular size is normal. Estimated left ventricular ejection fraction is 65-70%. Mild concentric left ventricular hypertrophy. Left ventricular diastolic function is normal. Wall motion appears normal in all segments. The right ventricular size is normal. Right ventricular systolic function is normal. No evidence of ventricular septal defect. The left atrial volume is moderately increased (42-48 ml/M2). Moderate aortic regurgitation. Trace to mild mitral regurgitation. A trace of tricuspid regurgitation. Right ventricular systolic pressure is 30-40 mmHg suggestive of mild pulmonary hypertension. ++++++++++++++++++++++++++++++++++++ FINDINGS: ++++++++++++++++++++++++++++++++++++ LV: The left ventricular size is normal. Estimated left ventricular ejection fraction is 65-70%. Mild concentric left ventricular hypertrophy. Left ventricular diastolic function is normal. WM: Wall motion appears normal in all segments. RV: The right ventricular size is normal. Right ventricular systolic function is normal. IVS: No evidence of ventricular septal defect. LA: The left atrial volume is moderately increased (42-48 ml/M2). RA: Right atrial size is normal. IAS: Atrial septum appears intact. RENUKA: No evidence of pericardial effusion. AO: The sinus of Valsalva measures 3.8cm. The proximal ascending aorta measures 3.9cm. PA: Estimated right atrial pressure of 3 mmHg. SVn: Inferior vena cava is normal. AV: The aortic valve is trileaflet. No evidence of aortic valve stenosis. Moderate aortic regurgitation. MV: Trace to mild mitral regurgitation. No evidence of mitral stenosis. PV: Trace pulmonic regurgitation. No evidence of pulmonic regurgitation. TV: A trace of tricuspid regurgitation. Right ventricular systolic pressure is 30-40 mmHg suggestive of mild pulmonary hypertension. No evidence of tricuspid valve stenosis. ++++++++++++++++++++++++++++++++++++ MEASUREMENTS: ++++++++++++++++++++++++++++++++++++ DOPPLER LVOT LVOTpkPG 4 mmHg LVOTmnPG 3 mmHg LVOTpkVel 102 cm/s (70-110)+ LVOT SV 83 ml LVOT TVI 26.4 cm Right Atrium RA Press 3 mmHg Marquez's Disk 20 Pulmonary Veins PVnpkVeld 54.5 cm/s PVnVs/Vd 1.9 PVnpkVels 104 cm/s PVn A Dur 120 msec AV Forward Flow AV TVI 32.3 cm AV pkPG 8 mmHg AV pkVel 140 cm/s (100-170)+ Area (TVI) 2.57 cm2 (3-5)* AV mnPG 5 mmHg Area (William) 2.29 cm2 (3-5)* AV Regurg Flow AV pkVel 445 cm/s AV P1/2t 439 msec AV pkPG 79 mmHg MV Forward Flow MV DeTm 205 msec MV pkPG 5 mmHg MVA P1/2t 3.67 cm2 (4-6)* MV E/A 0.9 MV P1/2t 60 msec (30-60)+ MV pkE 111 cm/s (60-130) MV mnPG 2 mmHg MV pkA 122 cm/s PV Forward Flow PV pkVel 101 cm/s (60-90)+* PV AC 124 msec PV pkPG 4 mmHg TV Regurg Flow TV pkPG 31 mmHg TV pkVel 277 cm/s (30-70)* Right Ventricle RVsys P 34 mmHg Right Ventricle 16.3 cm/s Lat E' Lat e 8.7 cm/s Lat E/E' Lat E/e 12.8 Med E' Med e 8.92 cm/s Med E/E' Med E/e 12.4 Aortic Valve Aortic Valve Ve 0.73 AV DI Value 0.82 Left Ventricle LV IVRT 114 msec PV Antegrade Flow Acceleration Sl 605 cm/s2 2D Left Ventricle LVIDd 3.4 cm (3.6-5.2)* LV ESV 29.7 ml LVIDs 2.4 cm (2.3-3.9) LV ESV 21.2 ml LngAxd 7.84 cm LVESV BP 26.4 ml LngAxd 7.47 cm LV EF 73.7 % LV EDV 113 ml LV EF 80.4 % LV EDV 108 ml LV EF BP 76.6 % LVEDV BP 113 ml LV SV 83.3 ml LngAxs 6.12 cm LV SV 86.8 ml LngAxs 5.46 cm LV SV BP 86.6 ml LVPW LVPWd 1 cm Ventricular Septum IVSd 1.2 cm Left Atrium LA VOLBP 43.6 ml Aorta Ao Rtd 3.8 cm Ao Asc 3.9 cm (2.1-3.4)* LVOT LVOT 2 cm LVOTArea 3.14 cm2 Ratios IVS Inferior vena cava IVC Diam 12 mm RA Single Plane Right Atrium MO 12 mm Right Atrium Sy 16.3 cm2 Right Atrium Sy 52.5 mm Right Atrium Sy 41.8 ml Right Ventricle Right Ventricle 37 mm Right Ventricle 33 mm Major [place] 82 mm MMODE TA Tricuspid Annul 19.3 mm <Electronic Signature> 07/16/2025 08:40 AM Julio Claudio M.D. Julio Claudio MD ECHO Final Result from Last 3 Months Additional Health Concerns Active Problems Noted Date Diagnosed Date Acute blood loss anemia 05/30/2019 [facility] HP SOCIAL SUPPORT 06/08/2019 Insurance [facility] MEDIC[facility] Advance Directives Documents on File Type Date Recorded Patient Cell Tester Expl anation Advance Directives and Living Will 03/07/2025 10:50 AM Healthcare POA * Full Code (Latest Code Status on File) Date Activated Date Inactivated Comments 02/28/2025 12:08 AM 03/04/2025 2:58 PM * Full Code Date Activated Date Inactivated Comments 10/05/2023 6:08 AM 10/13/2023 3:59 PM * DNR Date Activated Date Inactivated Comments 09/28/2023 9:29 PM 10/05/2023 6:07 AM * Full Code Date Activated Date Inactivated Comments 09/21/2023 11:23 PM 09/23/2023 5:56 PM * Full Code Date Activated Date Inactivated Comments 09/04/2023 2:53 PM 09/21/2023 3:09 PM Care Teams Certified Hyperbaric Technician Relationship Specialty Start Date End Date Lona Martínez MD [address] [place] [address] PCP - General FAMILY PRACTICE 05/03/24 Alessandra Sarabia, RN [address] [place] [address] River Rafting Guide (Ambulatory) REGISTERED NURSE 06/05/23 Jani [place] MD [address] [facility] [address] [place] [address] Physician NEUROMUSCULOSKELETAL MEDICINE 06/28/24 Jewel Walker MD [address] [place] [address] Referring Physician GASTROENTEROLOGY 06/28/24 John Cervantes MD [address] [address] OPHTHALMOLOGY 06/28/24 [place] [address] [place] [address] Consulting Physician CARDIOVASCULAR DISEASE 07/04/25
--- OUTSIDE RECORDS SUMMARY | 2025-08-28 07:34 | XMS_ITS | Encounter Summary ---
Author Organization [facility] Address Formerly [facility] [place] [address] Care Team Providers Care Tier And Detonator Name Role Phone FroydeniseAlessandra RN Unavailable [phone] Lona Martínez MD Primary Care Provider + Jani Washington MD Unavailable [phone] Jewel Walker MD Unavailable [phone] John Cervantes MD Unavailable [phone] Julio Claudio MD Unavailable [phone] Encounter Details Date Type Department Care Team (Late st Contact Info) Description 08/09/2025 Atrica Message Enc [facility] Multispecialty Care - [facility] [address] [facility], [address] [place] [address] [facility] Provider Results Social History Tobacco Use Types [...] materials from doctor or pharmacy Never 08/25/2023 [facility] Utilities Answer Date Recorded In the past 12 months has e [employer], gas, oil, or water [employer] threatened to shut off services in your [...] week 06/19/2023 How often do you attend temple or cheondoism serv ices? Never 06/19/2023 Do you belong to any clubs o r organizations such as temple groups, unions, fraternal or athletic groups, or [...] Recorded Patient Health Questionnaire-2 Score 2 08/05/2025 [facility] Occupat ional [facility] - Occupational [...] any time in the past 12 m [facility], were you homeless or living [...] st Contact Info) Description 09/04/2025 4:20 PM WIRE REPAIRER Allied Health/Nurse Visit [facility] THREE [facility], [address] [place] [address] Rick Madison MD Three [facility]. [address] [place], [place] [address] 09/14/2025 1:20 PM WIRE REPAIRER Office Visit [facility] Family Medicine - [address] [place], [place] [address] Lona Martínez MD [address] [place] [address] 12/26/2025 2:15 PM WIRE REPAIRER Office Visit [facility] THREE [facility], [address] [place] [address] Roxy Roth, STRAIGHT LINE PRESS SETTER-C Three [facility]. [address] [place] [address] 01/01/2026 3:00 PM CDT Office Visit [facility] Multispecialty Care - [facility] [address] [facility], [address] [place] [address] Jani [place] MD [address] [facility] [place] [address] 08/24/2026 2:00 PM CDT Office Visit [facility] Family [facility] [address] [place], [place] [address] Lona Martínez MD [address] [place], [place] [id number] documented as of this encounter Goals Goal Patient Goal Type Associated Problems Recent Progress Patient-Stated? Author Health - patient able to perform ADLs independently Lifestyle On track(2024 2:36 PM CDT) No Malena Mcqueen, MATERIALS SUPERVISOR Establish Regular Follow-Ups with PCP Lifestyle On [...] Notes Improve Home Support System Care Plan [facility] HP SOCIAL SUPPORT No Nathalie Arndt BSW Improve Home Support System Care Plan [facility] HP SOCIAL SUPPORT No Nathalie Arndt BSW documented as of this encounter Visit Diagnoses Not on filedocumented in this encounter Additional Health Concerns Active Problems Noted Date Diagnosed Date Acute blood loss anemia 05/30/2019 [facility] HP SOCIAL SUPPORT 06/08/2019 Assessment Noted Time PHQ-9 Depression Total Score: 6 08/05/20 25 10:01 AM CDT documented as of this encounter Care Teams Tier And Detonator Relationship Specialty Start Date End Date Lona Martínez MD [address] [place] [address] PCP - General FAMILY PRACTICE 05/03/24 Alessandra Sarabia, RN [address] [place] [address] Chief Of Planning (Ambulatory) REGISTERED NURSE 06/05/23 Jani [place] MD [address] [facility] [address] [place] [address] Physician NEUROMUSCULOSKELETAL MEDICINE 06/28/[address] [facility] [place] [address] Referring Physician GASTROENTEROLOGY 06/28/24 John Cervantes MD [address] [address] OPHTHALMOLOGY 06/28/24 [place] [address] [place] [address] Consulting Physician CARDIOVASCULAR DISEASE 07/04/25 documented as of this encounter
--- OUTSIDE RECORDS SUMMARY | 2025-08-28 07:34 | XMS_ITS | Encounter Summary ---
Author Organization [facility] Address [facility] [place] [address] Care Team Providers Care Bail Bond Agent Name Role Phone Alessandra Sarabia RN Unavailable [phone] Lona Martínez MD Primary Care Provider + Jani [place] MD Unavailable [phone] Jewel Walker MD Unavailable [phone] John Cervantes MD Unavailable [phone] Julio Claudio MD Unavailable [phone] Encounter Details Date Type Department Care Team (Latest Contact Info) Description 07/17/2025 Results Follow-Up [facility] [facility] [facility], [address] [address] [place] [address] USE ECHOCARDIOGRAM W CON Social History Tobacco [...] materials from doctor or pharmacy Never 08/25/2023 [facility] Utilities Answer Date Recorded In the past 12 months has e [employer], [employer], oil, or water [employer] threatened to shut off services in your [...] How often do you attend baptism or orthodoxy serv ices? Never 06/19/2023 Do you belong [...] Recorded Patient Health Questionnaire-2 Score 2 07/04/2025 [facility] of Occupat ional Health - Occupational [...] place to sleep or slept in a longterm (including now)? No 09/29/2023 Housing Stability Vital Sign Answer Pieter e Recorded In the last 12 months, was t here a time when you were not able to pay the mortgage or rent on time? No 02/28/2025 In the past 12 months, how m any times have you moved where you were living? 1 02/28/2025 At any time in the past 12 m [facility], were you homeless or living in a longterm (including now)? No 02/28/2025 Comments No Sex [...] st Contact Info) Description 09/04/2025 4:20 PM RETAIL BUSINESS MANAGER Allied Health/Nurse Visit [facility] THREE [facility], [address] [place] [address] Rick Madison MD Three [facility]. [address] [place] [address] 09/14/2025 1:20 PM RETAIL BUSINESS MANAGER Office Visit [facility] Family Medicine - [place] [address] [place], [place] [address] Lona Martínez MD [address] [place] [id number] 12/26/2025 2:15 PM RETAIL BUSINESS MANAGER Office Visit [facility] THREE [facility], [address] [place] [address] Roxy Roth, ENDING MACHINE OPERATOR-C Three [facility]. [address] [place] [address] 01/01/2026 3:00 PM CDT Office Visit [facility] Multispecialty Care - [facility] [address] [facility], [address] [place] [address] Jani [place] MD [address] [facility] [place] [address] 08/24/2026 2:00 PM CDT Office Visit [facility] Family [facility] [place] [address] [place], [place] [address] Lona Martínez MD [address] [place], [place] [address] documented as of this encounter Goals Goal Patient Goal Type Associated Problems Recent Progress Patient-Stated? Author Health - patient able to perform ADLs independently Lifestyle On track(2024 2:36 PM CDT) No Malena Mcqueen, AUTOMATIC LATHE TENDER Establish Regular Follow-Ups with PCP Lifestyle On [...] Notes Improve Home Support System Care Plan [facility] SOCIAL SUPPORT No Nathalie Arndt BSW Improve Home Support System Care Plan [facility] SOCIAL SUPPORT No Nathalie Arndt BSW documented as of this encounter Visit Diagnoses Not on filedocumented in this encounter Additional Health Concerns Active Problems Noted Date Diagnosed Date Acute blood loss anemia 05/30/2019 [facility] HP SOCIAL SUPPORT 06/08/2019 Assessment Noted Time PHQ-9 Depression Total Score: 6 07/04/20 25 10:29 AM CDT documented as of this encounter Care Teams Bail Bond Agent Relationship Specialty Start Date End Date Lona Martínez MD [address] [place] [address] PCP - General FAMILY PRACTICE 05/03/24 Alessandra Sarabia, RN [address] [place] [address] Still Runner (Ambulatory) REGISTERED NURSE 06/05/23 Jani [place] MD [address] [facility] [address] [place] [address] Physician NEUROMUSCULOSKELETAL MEDICINE 06/28/24 Jewel Walker MD [address] [place] [address] Referring Physician GASTROENTEROLOGY 06/28/24 John Cervantes MD [address] [address] OPHTHALMOLOGY 06/28/24 [place] [address] [place] [address] Consulting Physician CARDIOVASCULAR DISEASE 07/04/25 documented as of this encounter
--- OUTSIDE RECORDS SUMMARY | 2025-08-28 07:34 | XMS_ITS | Clinical Summary ---
Author Organization [facility] Address [address] [place] [address] Care Team Providers Care Manager Intensive Care Unit Name Role Phone Willard Barksdale DO Unavailable [phone] Jani [place] MD Unavailable [phone] Lona Martínez MD Primary Care Provider Allergies [...] morning, Indications: Myocardial Reinfarction Prevention, Informant: Self, Compressed Yeast Supervisor Care Facility, Reported on 02/02/2025 atorvastatin (Lipitor) [...] tablet by mouth nightly Active multivit with [id number] 0.4-600 mg-mcg tabletIndications: supplement Take 1 tablet by mouth every morning Active enoxaparin 40 mg/0.4 mL syringe kitIndications:Mitzi navarro Vein Thrombosis Prevention Inject 40 mg under the skin head of acquisitions before breakfast Active ibuprofen (ADVIL,MOTRIN) 600 mg [...] 09/24/2023 Assessment & Plan (09/24/2023 9:03 AM ANCHOR TACKER): This is chronic and stable. Avoid and limit foods that are high cholesterol, fatty. Limit intake of egg yokes, processed meats, and whole milk. Continue prescription atovastatin. Parkinson's disease without dyskinesia or fluctuating manifestations 09/24/2023 Acquired hypothyroidism 09/24/2023 Assessment & Plan (09/24/2023 9:04 AM ANCHOR TACKER): Chronic, stable; cont levothyroxine 125mcg/day OAB (overactive bladder) 09/24/2023 Persistent depressive disorder 09/24/2023 Primary osteoarthritis involving multiple joints 09/24/2023 Encephalopathy 09/24/2023 Gastroesophageal reflux disease without esophagi tis 09/24/2023 SHANITA (generalized anxiety disorder) 09/24/2023 Essential hypertension 09/24/2023 Crohn's disease 09/24/2023 Assessment & Plan (09/24/2023 9:04 AM ANCHOR TACKER): Chronic, stable; cont sulfasalazine script Stroke-like episode 09/24/2023 Assessment & Plan (09/24/2023 9:05 AM ANCHOR TACKER): Resolved, acute; begin pt and ot Chronic diastolic congestive heart failure 09/24 Cystitis 09/24/2023 Assessment & Plan (09/24/2023 9:05 AM ANCHOR TACKER): This is subacute and improving. Complete course of oral cefdinir script Hiatal hernia 09/24/2023 Lumbar radiculopathy 09/24/2023 Generalized weakness 09/24/2023 Assessment & Plan (09/24/2023 9:05 AM ANCHOR TACKER): I endorse admission to long term care. The patient is at risk of [...] Department Care Team Description 08/27/2025 12:26 PM ANCHOR TACKER - 08/27/2025 11:59 PM ANCHOR TACKER Hospital Encounter [facility] [address] [place] [address] Arrived Discharge Disposition: Discharge to home or self care 08/27/2025 12:25 PM ANCHOR TACKER - 08/27/2025 11:59 PM ANCHOR TACKER Hospital Encounter [facility] [address] [place] [address] Arrived Discharge Disposition: Discharge to home or self care 08/10/2025 [facility] [address] [place] [address] Carson Crawford III, MD sooner appt r/s [...] on file Legal Sex Female 5:27 AM ANCHOR TACKER Gender Identity Female 11/22/2024 10:23 AM ANCHOR TACKER Sexual Orientation Straight 11/22/2024 10 :23 AM ANCHOR TACKER Last Filed Vital Signs Vital Sign Reading [...] CT OUTSIDE REFERENCE Routine 08/27/2025 12:26 PM ANCHOR TACKER XR TRANSFER OF OUTSIDE FILMS Routine 08/27/2025 12:25 PM ANCHOR TACKER from Last 3 Months Results * MSK CT Outside Reference (08/27/2025 12:26 PM ANCHOR TACKER) Impressions RAD[facility]PACS_[facility] - 08/27/2025 12:26 PM ANCHOR TACKER These images are for Reference purposes only and have not been reviewed by [facility]. There will be no report generated by a [facility]iologist. Narrative RAD_PACS_[facility] - 08/27/2025 12:26 PM ANCHOR TACKER EXAMINATION: Images For Reference Purposes Only us Salbador COLE IMG CT PROCEDURES Final Result Performing Organization Address City/[facility]/ZIP Co de Phone Number [facility] * XR Outside Reference (08/27/2025 12:25 PM ANCHOR TACKER) Impressions [facility] - 08/27/2025 12:25 PM ANCHOR TACKER These images are for Reference purposes only and have not been reviewed by [facility]. There will be no report generated by a [facility]iologist. Narrative [facility] - 08/27/2025 12:25 PM ANCHOR TACKER EXAMINATION: Images For Reference Purposes Only us Salbador COLE IMG XR PROCEDURES Final Result Performing Organization Address City/[facility] Co de Phone Number [facility]_PACS_[facility] from Last 3 Months Insurance [facility] MEDICARE GOLD AET MEDICARE GOLD Care Teams Manager Intensive Care Unit Relationship Specialty Start Date End Date Lona Martínez MD [address] [facility] [address] [place] [address] PCP - General Family Medicine 01/20/25 Willard Barksdale [place] [address] [place] [address] Family Medicine 03/28/24 Jani [place] [address] [place] [address] Referring Physician Neurology 03/28/24
--- OUTSIDE RECORDS SUMMARY | 2025-08-28 07:34 | XMS_ITS | Clinical Summary ---
Author Organization [facility] Address [address] [place] [address] Phone Care Team Providers Care Pheresis Nurse Name Role Phone Maxi Salinas MD Primary Care Provider [phone] Allergies Active Allergy Reactions Criticality Noted Date [...] or Spasm. 90 Tablet 11/18/2016 12:32 PM WELDING TESTER 7 Active oxyCODONE-aceta minophen (PERCOCET) 5-325 mg tablet Take 1-2 Tablets by mouth every 4-6 hours as needed for pain. 60 Tablet 11/18/2016 12:32 PM WELDING TESTER 7 Active traZODone (DESYREL) 50 mg tablet [...] on file Legal Sex Female 10:50 AM WELDING TESTER Gender Identity Not on file Sexual Orientation [...] Tdap) 07/08/2027 Medical Devices Implanted Type Area Gun Examiner Device Identifier Shelf Expiration Date Model / Serial / Lot Sealant Duraseal 5ml - [id number] Implanted:Qt y: 1 on 11/17/2016 by Kyler Ovalle MD at [facility] Biological N/A: Spine Lumbar [employer] [id number] 01/23/2018 / / [id number] Sealant Floseal W/ Apdtr 5ml [id number] - [id number] Implanted:Qt y: 1 on 11/17/2016 by Kyler Ovalle MD at [facility] Sealant N/A: Spine Lumbar [employer] [id number] 02/22/2018 [id number] / / [id number] Insurance RX [facility] Medicare Part D RX DE PAZ PLANS (INTERNAL) [facility] Internal Plans MEDICARE PART A AND B [facility] Advance Directives For more information, please contact: [phone] Documents on File Type Date Recorded Patient Certified Nurses' Aide Expl anation Advance Directive POA 11/17/2016 9:14 [...] 9:30 AM 11/17/2016 11:26 AM Care Teams Pheresis Nurse Relationship Specialty Start Date End Date Maxi Salinas MD [address] [place] [address] PCP - General Family Practice 11/17/16
--- OUTSIDE RECORDS SUMMARY | 2025-08-28 07:34 | XMS_ITS | Encounter Summary ---
Author Organization [facility] Address [address] [place] [address] Care Team Providers Care Decommissioning Well Site Manager Name Role Phone GatoteresamelissaLona Primary Care Provider [phone] Reason for Visit * Reason Onset Date Comments Question 01/19/2025 Encounter Details Date Type Department Care Team (Late st Contact Info) Description 01/19/2025 Telephone [facility] CRM ARCHITECT [address] [facility] [address] [place] [address] Any Garcia MD [address] [facility] [address] [place] [address] Question Social History Tobacco Use [...] Sex Assigned at Female 11/11/2024 10:27 AM YARD SPOTTER Legal Sex Female 5:48 PM YARD SPOTTER Gender Identity Female 11/11/2024 10:27 AM YARD SPOTTER Sexual Orientation Choose not to disclose 2024 10:27 AM YARD SPOTTER documented as of this encounter Miscellaneous Notes * Telephone Encounter - Eda Taylor RN - 01/19/2025 3:49 PM CDT Spoke with patients son He is going to find out the exact verbiage that is needed for a letter and send it back to me via [employer] message. * Telephone Encounter - Hedy Gamboa - 01/19/2025 3:31 PM CDT Rick, son calling to get an order for pt to be discharged back to her living filicity.. Please contact # [phone] documented in this encounter Plan of Treatment Not on file documented as of this encounter Visit Diagnoses Not on filedocumented in this encounter Care Teams Decommissioning Well Site Manager Relationship Specialty Start Date End Date Lona Martínez [address] [facility] [address] [place] [phone] PCP - General Family Medicine 11/22/24 documented as of this encounter
--- OUTSIDE RECORDS SUMMARY | 2025-08-28 07:34 | XMS_ITS | Clinical Summary ---
Author Organization [facility] Address [address] [facility] [place] [address] Care Team Providers Care Deputy K 9 Name Role Phone Lona Martínez Primary Care Provider [phone] Source Comments [facility],non-owned Affiliates and Associated Physician Practices is amultiple site organization consisting of ambulatory clinics and hospital sitesin [place], [place], [place] and [place]. This disclosure is being madepursuant to the Care Everywhere program and may not contain all information available regarding this patient. Last updated 18.[facility] modulR Allergies Active Allergy Reactions Criticality Noted Date [...] by mouth 2 times daily 4 Active [place]-3 Fatty Acids (fish oil) 500 MG capsule [...] Sex Assigned at Female 11/11/2024 10:27 AM EQUIPMENT OPERATOR/LABORER Legal Sex Female 5:48 PM EQUIPMENT OPERATOR/LABORER Gender Identity Female 11/11/2024 10:27 AM EQUIPMENT OPERATOR/LABORER Sexual Orientation Choose not to disclose 2024 10:27 AM EQUIPMENT OPERATOR/LABORER Last Filed Vital Signs Vital Sign Reading [...] topic Insurance A[employer] MEDICARE ADV Care Teams Deputy K 9 Relationship Specialty Start Date End Date Lona Martínez [address] [facility] [address] [place] [phone] PCP - General Family Medicine 11/22/24
--- OUTSIDE RECORDS SUMMARY | 2025-08-28 07:34 | XMS_ITS | Encounter Summary ---
Author Organization [facility] Health Address [address] [place] [address] Care Team Providers Care Integration Lead Name Role Phone Lona Martínez Primary Care Provider Reason for Visit * Reason Onset Date Comments Procedure Prior Auth Request 11/24/2024 Encounter Details Date Type Department Care Team (Late st Contact Info) Description 11/24/2024 Telephone [facility] - SALVAGE WINDER [address] [facility] [address] [place] [address] Any Garcia MD [address] [facility] [address] [place] [address] Procedure Prior Auth Request Social History Tobacco Use Types Packs/Day Years Used Date Smoking Tobacco: Former Cigarettes Alcohol Use Standard Drinks/Week Comments Yes 0 (1 standard drink = 0.6 oz pur e alcohol) PHQ-2 Answer Date Recorded Patient Health Questionnaire-2 Score 0 11/16/2024 Comments No Sex and Gender Information Value Date Recorded Sex Assigned at Female 11/11/2024 10:27 AM PLANT ATTENDANT Legal Sex Female 5:48 PM PLANT ATTENDANT Gender Identity Female 11/11/2024 10:27 AM PLANT ATTENDANT Sexual Orientation Choose not to disclose 2024 10:27 AM PLANT ATTENDANT documented as of this encounter Miscellaneous Notes * Telephone Encounter - Farida Newby - 11/24/2024 10:44 AM CST [facility] is calling needing auth for pt test on 11-30-24. CB: [phone] Luly FAX: [phone] T ATTENDANT documented in this encounter Plan of Treatment Not on file documented as of this encounter Visit Diagnoses Not on filedocumented in this encounter Additional Health Concerns Infection Onset Date Last Indicated Resolved Time COVID-19 Under Investigation 01/06/2025 01/06/2025 01/06/2025 1:31 PM CDT documented as of this encounter Care Teams Integration Lead Relationship Specialty Start Date End Date Lona Martínez [address] [facility] [address] [place] [address] PCP - General Family Medicine 11/22/24 documented as of this encounter
[2025-08-28 07:41] VITALS: BP 162/86; PULSE 81; RESP 18; TEMP 36.7; O2SAT 96
--- NOTE | 2025-08-28 08:02 | ED_ITS ---
HPI - Extremity Injury (Lower) General Chief Complaint: Extremity Injury, Lower Stated Complaint: left leg pain Time Seen by Provider: 08/28/25 07:43 History of Present Illness HPI Narrative: patient presents after a fall for out of bed this morning, was initially reporting mostly right-sided pain, had normal x-rays other than an already known fracture, after being discharged she remembered she was also having pain to her left leg Related Data Allergies Allergy/AdvReac Type Severity Reaction Status Date / Time levofloxacin Allergy Itching Verified 08/28/25 05:32 Review of Systems Review of Systems: All systems reviewed & are unremarkable except as noted in HPI and below PMFSH Past Medical History Medical History Chronic pain Exam Narrative: EXAMINATION OF ORGAN SYSTEMS/BODY AREAS: Constitutional: Vital signs per nursing GENERAL:[No acute distress, non-toxic appearing.] HEAD: Normal with no signs of head trauma. EYES: EOMI, conjunctiva normal ENT: Hearing grossly intact LUNGS: Nonlabored breathing. HEART: [Regular rate and rhythm], normal left DP pulse ABD: [Soft], [nontender to palpation] EXT: bruising/tenderness and swelling and contusion to the left lower anterior leg SKIN: tiny abrasion left anterior lower leg NEURO: [Alert. speaking with clear speech.] PSYCH: Normal affect Course Vital Signs Vital signs: Vital Signs Temperature 98.0 F 08/28/25 07:41 Pulse Rate 81 08/28/25 07:41 Respiratory Rate 18 08/28/25 07:41 Blood Pressure 162/86 H 08/28/25 07:41 Pulse Oximetry 96 08/28/25 07:41 Oxygen Delivery Room Air 08/28/25 07:41 Temperature 98.0 F 08/28/25 07:41 Pulse Rate 81 08/28/25 07:41 Respiratory Rate 18 08/28/25 07:41 Blood Pressure 162/86 H 08/28/25 07:41 Pulse Oximetry 96 08/28/25 07:41 Oxygen Delivery Room Air 08/28/25 07:41 MDM - Extremity Injury (Lower) MDM Narrative Medical decision making narrative: patient presents here after she had a fall out of bed, she does have a large left lower leg hematoma with a tiny abrasion and some tenderness, but she is neurovascularly intact with good pulses, no obvious deformity. X-ray thankfully negative for acute osseous abnormality, discussed with patient and family members at bedside, care instructions provided including ice, elevation follow- up to PCP with return precautions Discharge Plan Discharge Clinical Impression: Contusion of left leg Patient Disposition: Home Condition: Stable Instructions: Hematoma (ED) Additional Instructions: thankfully the x-ray of your left leg does not show any broken bones. Please follow up with your doctor; you can always return for any further issues. Patient Language: Slovenian Prescriptions: No Action hydrocodone-acetaminophen 5-325 mg tablet 1 tablet PO Q6H PRN (Reason: pain) 3 Days Qty: 12 0RF oxycodone-acetaminophen 5-325 mg tablet 1 tablet PO Q4H PRN (Reason: pain) Qty: 30 0RF Follow-up/Referrals: Mauricio,Lona Restrepo MD [Primary Care Provider, Unknown]
== END 2025-08-28 08:55 | disposition home or self-care (01) ==
PROVIDERS: Emergency Provider Emergency Medicine; PCP Student in an Organized Health Care Education/Training Program
DX: S80.12XA Contusion of left lower leg, initial encounter (principal); G89.29 Other chronic pain; W06.XXXA Fall from bed, initial encounter
CPT/HCPCS: 73590; 99283

== ENCOUNTER 2025-10-15 19:30 | Emergency (ER) | payer MEDICARE, SELFPAY ==
[2025-10-15] VITALS (12 sets, daily range): BP systolic 126–144; BP diastolic 50–84; PULSE 88–102; RESP 18–28; TEMP 36.7–36.8; O2SAT 84–100
--- NOTE | ~2025-10-15 | XR_ITS ---
EXAMINATION: XR chest 1V portable DATE: 10/15/2025 20:00 INDICATION: Chest pain TECHNIQUE: frontal view of the chest was obtained. COMPARISON: Chest radiograph dated 08/06/2025 FINDINGS: No interval change in mild linear opacities at the bilateral lung bases consistent with minimal bibasilar discoid atelectasis/scarring. Airspace opacities, pulmonary edema, pleural effusion or pneumothorax. The cardiomediastinal silhouette is normal. Left pectoral implantable rn cardiac. IMPRESSION: 1. No acute cardiopulmonary disease. Reviewed, dictated and finalized at location A. ER [facility]ACHINE [employer]PERATOR
--- NOTE | 2025-10-15 19:39 | ECG_ITS ---
Test Date: 2025-10-15 19:40:46 Measurements Intervals [place] Rate: 92 P: 31 NH: 248 QRS: -40 QRSD: 82 T: 17 QT: 343 QTc: 425 Interpretive Statements SINUS RHYTHM WITH FIRST DEGREE AV BLOCK INFERIOR INFARCT, AGE INDETERMINATE ANTEROLATERAL INFARCT, AGE INDETERMINATE BASELINE WANDER- I, II, III, AVR, AVL, AVF ABNORMAL ECG No previous ECG available for comparison Electronically Signed On 10-16-2025 06:40:05 CHIEF NURSING OFFICER by Juan Manuel Mathews D.O.
[2025-10-15 20:00] LABS: Hematocrit 39.2 % (37.0-47.0); Hemoglobin 12.8 g/dL (12.0-15.0); Immature Granulocyte Percent A 0.4 % (0-0.5); Lymphocytes Absolute Auto 1.51 K/mm3 (0.9-3.2); Mean Corpuscular HGB Conc 32.7 g/dl (32-36); Mean Corpuscular Hemoglobin 32.6 pg (26-34); Mean Corpuscular Volume 99.7 fl (80-100); Nucleated Red Blood Cells Absolute Auto 0.000 K/mm3 (0.0-0.012); Nucleated Red Blood Cells Perc 0.0 % (0.0-0.2); Platelet Count Result 239 k/mm3 (150-375); Red Blood Count 3.93 M/mm3 (4.2-5.4); White Blood Count 10.9 K/mm3 (4.5-10.0)
[2025-10-15 20:14] LABS: Alanine Aminotransferase 6 U/L (6-35); Albumin Level 4.0 g/dL (3.5-5.1); Alkaline Phosphatase 112 U/L (38-126); Anion Gap 5 mmol/L (4-12); Aspartate Amino Transferase 35 U/L (14-36); Bilirubin,Total 0.6 mg/dL (0.2-1.3); Blood Urea Nitrogen 27 mg/dL (7-17); Calcium 9.5 mg/dL (8.4-10.2); Carbon Dioxide 27 mmol/L (22-30); Chloride 108 mmol/L (98-107); Estimated CRCL calculation 37 ml/min; Estimated Glomerular Filt Rate 52; Glucose 98 mg/dL (65-110); Lipase 53 U/L (23-300); Potassium 3.8 mmol/L (3.4-5.0); Sodium 140 mmol/L (137-145); Total Protein 6.8 g/dL (6.3-8.2)
[2025-10-15 20:24] LABS: Troponin I < 0.012 ng/mL (0.000-0.034)
[2025-10-15 20:32] LABS: INR 0.9; Prothrombin Time 12.4 Seconds (11.1-14.7)
[2025-10-15 20:33] LABS: Partial Thromboplastin Time 26.6 Seconds (22.3-36.8)
[2025-10-15] MEDS: PANTOPRAZOLE SODIUM IV 40 MG VIAL IV PUSH (20:37)
[2025-10-15] MEDS: ONDANSETRON INJ 4 MG/2 ML VIAL IV PUSH (20:37)
--- OUTSIDE RECORDS SUMMARY | 2025-10-15 20:43 | XMS_ITS | Encounter Summary ---
Author Organization [facility] Health Address [address] [place] [address] Care Team Providers Care Pewter Finisher Name Role Phone GatoteresamelissaLona Primary Care Provider [phone] Reason for Visit * Reason Onset Date Comments Question 01/19/2025 Encounter Details Date Type Department Care Team (Late st Contact Info) Description 01/19/2025 Telephone [facility] - PROJECT MANAGER RETAIL [address] [facility] [address] [place] [address] Any Garcia MD [address] [facility] [address] [place] [address] Question Social History Tobacco Use [...] Sex Assigned at Female 11/11/2024 10:27 AM PHLEBOTOMIST MEDICAL LAB ASSISTANT Legal Sex Female 5:48 PM PHLEBOTOMIST MEDICAL LAB ASSISTANT Gender Identity Female 11/11/2024 10:27 AM PHLEBOTOMIST MEDICAL LAB ASSISTANT Sexual Orientation Choose not to disclose 2024 10:27 AM PHLEBOTOMIST MEDICAL LAB ASSISTANT documented as of this encounter Miscellaneous Notes * Telephone Encounter - Eda Taylor RN - 01/19/2025 3:49 PM CDT Spoke with patients son He is going to find out the exact verbiage that is needed for a letter and send it back to me via [employer] message. * Telephone Encounter - Hedy Gamboa - 01/19/2025 3:31 PM CDT Rick, son calling to get an order for pt to be discharged back to her living filicity.. Please contact # [phone] documented in this encounter Plan of Treatment Not on file documented as of this encounter Visit Diagnoses Not on filedocumented in this encounter Care Teams Pewter Finisher Relationship Specialty Start Date End Date Lona Martínez [address] [facility] [address] [place] [phone] PCP - General Family Medicine 11/22/24 documented as of this encounter
--- OUTSIDE RECORDS SUMMARY | 2025-10-15 20:43 | XMS_ITS | Clinical Summary ---
Author Organization [facility] Address [address] [place] [address] Care Team Providers Care Sports Internship Name Role Phone Lona Martínez Primary Care Provider [phone] Source Comments [facility],non-owned Affiliates and Associated Physician Practices is amultiple site organization consisting of ambulatory clinics and hospital sitesin [place], [place], [place] and [place]. This disclosure is being madepursuant to the Care Everywhere program and may not contain all information available regarding this patient. Last updated 18.[facility] [email or web address] Allergies Active Allergy Reactions Criticality Noted Date [...] by mouth 2 times daily 4 Active [place]-3 Fatty Acids (fish oil) 500 MG capsule [...] Sex Assigned at Female 11/11/2024 10:27 AM NEWS REPORTER Legal Sex Female 5:48 PM NEWS REPORTER Gender Identity Female 11/11/2024 10:27 AM NEWS REPORTER Sexual Orientation Choose not to disclose 2024 10:27 AM NEWS REPORTER Last Filed Vital Signs Vital Sign Reading [...] topic Insurance A[employer]NA MEDICARE ADV Care Teams Sports Internship Relationship Specialty Start Date End Date Lona Martínez [address] [facility] [address] [place] [phone] PCP - General Family Medicine 11/22/24
--- OUTSIDE RECORDS SUMMARY | 2025-10-15 20:43 | XMS_ITS | Encounter Summary ---
Author Organization [facility] Health Address [address] [facility] [place] [address] Care Team Providers Care Honey Blender Name Role Phone GatoLona prieto Primary Care Provider [phone] Encounter Details Date Type Department Care Team (Late st Contact Info) Description 05/21/2022 Lab Requisition [facility] [address] [facility] [place] [id number] Fredis London MD [address] [place] [id number] Social History Tobacco Use Types Packs/Day Years Used Date Smoking Tobacco: Never Assessed Comments Unknown Sex and Gender Information Value Date Recorded Sex Assigned at Female 11/11/2024 10:27 AM TAPE FOLDING MACHINE OPERATOR Legal Sex Female 5:48 PM TAPE FOLDING MACHINE OPERATOR Gender Identity Female 11/11/2024 10:27 AM TAPE FOLDING MACHINE OPERATOR Sexual Orientation Choose not to disclose 2024 10:27 AM TAPE FOLDING MACHINE OPERATOR documented as of this encounter Plan of Treatment Not on file documented as of this encounter Procedures Procedure Name Priority Date/Time Associated Diagnosis Comments DERMATOPATHOLOGY Routine 05/19/2022 3:33 AM CDT documented in this encounter Results * DERMATOPATHOLOGY (05/19/2022 3:33 AM CDT) Case Report Dermatopathology Report Case: [id number] Authorizing Provider: Fredis London MD Collected: 05/19/2022 03:33 AM Ordering Location: [facility] DermPath Lab Received: 05/21/2022 08:15 AM Pathologist: Brett David MD Specimen: Skin, right cheek 3:00 PM CDT DERMATOPATHOLOGY LABORATORY Final Diagnosis Specimen A. SKIN, right cheek: BASAL CELL CARCINOMA, NODULAR TYPE (C44.319) 2 3:00 PM CDT DERMATOPATHOLOGY LABORATORY at 1500 CDT Clinical History BCCA. Path# [id number] 2 3:00 PM CDT DERMATOPATHOLOGY LABORATORY Gross Description Specimen A: Received is one formalin filled container labeled with the patient's name and designated right cheek. The specimen consists of a shave biopsy measuring 4k6o9ml. Jar 0. 3:00 PM CDT DERMATOPATHOLOGY LABORATORY [...] characteristic determined by the Dermatopathology Laboratory at [facility], directed by Dr. Micki David. These tests need not be, and therefore are not, approved by the [place] Food and Drug Administration. The tests are used for clinical purposes. Billing Codes Specimen Charges Stain Charges 12728 1 2 3:00 PM CDT DERMATOPATHOLOGY LABORATORY Embedded Images 2 3:00 PM CDT DERMATOPATHOLOGY LABORATORY Pathology/Cytolo gy TISSUE SPECIMEN FROM SKIN / Unknown 05/19/2022 3:33 AM CDT 05/21/2022 8:15 AM CDT us Fredis London MD LAB - PATHOLOGY/CYTOLOGY ORDER DORIAN Final Result DERMATOPATHOLOGY LABORATORY [facility] - Department of Dermatology [facility] [address] [place] [address], [address]rd [address] [phone] documented in this encounter Visit Diagnoses Not on filedocumented in this encounter Additional Health Concerns Infection Onset Date Last Indicated Resolved Time COVID-19 Under Investigation 01/06/2025 01/06/2025 01/06/2025 1:31 PM CDT documented as of this encounter Care Teams Honey Blender Relationship Specialty Start Date End Date Lona Martínez [address] [facility] [address] [place] [phone] PCP - General Family Medicine 11/22/24 documented as of this encounter
--- OUTSIDE RECORDS SUMMARY | 2025-10-15 20:43 | XMS_ITS | Encounter Summary ---
Author Organization [facility] Health Address [address] [facility] [place] [address] Care Team Providers Care Network Systems Analyst Name Role Phone GatoteresamelissaLona Primary Care Provider [phone] Reason for Visit * Reason Onset Date Comments Order 11/23/2024 Encounter Details Date Type Department Care Team (Late st Contact Info) Description 11/23/2024 Telephone [facility] - DIPLOMA MEDICAL ASSISTANT [address] [address] [place] [address] Any Garcia MD [address] [facility] [address] [place] [address] Order Social History Tobacco Use Types Packs/Day Years Used Date Smoking Tobacco: Former Cigarettes Alcohol Use Standard Drinks/Week Comments Yes 0 (1 standard drink = 0.6 oz pur e alcohol) PHQ-2 Answer Date Recorded Patient Health Questionnaire-2 Score 0 11/16/2024 Comments No Sex and Gender Information Value Date Recorded Sex Assigned at Female 11/11/2024 10:27 AM TUNNEL ELASTIC OPERATOR ZIGZAG Legal Sex Female 5:48 PM TUNNEL ELASTIC OPERATOR ZIGZAG Gender Identity Female 11/11/2024 10:27 AM TUNNEL ELASTIC OPERATOR ZIGZAG Sexual Orientation Choose not to disclose 2024 10:27 AM TUNNEL ELASTIC OPERATOR ZIGZAG documented as of this encounter Miscellaneous Notes * Telephone Encounter - Hedy Gamboa - 11/23/2024 12:27 PM CST Luly Gonzalez calling to get a pre certification for patient to have a ct so the abdomin, chest and pelvis.. FX# [phone] CB# [phone] EL ELASTIC OPERATOR ZIGZAG documented in this encounter Plan of Treatment Not on file documented as of this encounter Visit Diagnoses Not on filedocumented in this encounter Additional Health Concerns Infection Onset Date Last Indicated Resolved Time COVID-19 Under Investigation 01/06/2025 01/06/2025 01/06/2025 1:31 PM CDT documented as of this encounter Care Teams Network Systems Analyst Relationship Specialty Start Date End Date Lona Martínez [address] [id number] PCP - General Family Medicine 11/22/24 documented as of this encounter
--- OUTSIDE RECORDS SUMMARY | 2025-10-15 20:43 | XMS_ITS | Encounter Summary ---
Author Organization [facility] Address [address] [place] [address] Care Team Providers Care Director Of Infection Prevention Name Role Phone Lona Martínez Primary Care Provider [phone] Encounter Details Date Type Department Care Team (Late st Contact Info) Description 03/31/2018 Lab Requisition [facility] Care DermPath Lab [address] [facility] [facility] [place] [phone] Franck Allen MD [address] [place] [address] Social History Tobacco Use Types Packs/Day Years Used Date Smoking Tobacco: Never Assessed Comments Unknown Sex and Gender Information Value Date Recorded Sex Assigned at Female 11/11/2024 10:27 AM DIGITAL SALES PLANNER Legal Sex Female 5:48 PM DIGITAL SALES PLANNER Gender Identity Female 11/11/2024 10:27 AM DIGITAL SALES PLANNER Sexual Orientation Choose not to disclose 2024 10:27 AM DIGITAL SALES PLANNER documented as of this encounter Plan of Treatment Not on file documented as of this encounter Procedures Procedure Name Priority Date/Time Associated Diagnosis Comments DERMATOPATHOLOGY Routine 03/30/2018 12:0 0 AM CDT documented in this encounter Results * DERMATOPATHOLOGY (03/30/2018 12:00 AM CDT) Case Report Dermatopathology Report Case: [id number] Authorizing Provider: Franck Allen MD Collected: 03/30/2018 12:00 AM Pathologist: Brett David MD Received: 03/31/2018 12:18 PM Specimen: Skin, right lower leg 8 5:38 PM CDT DERMATOPATHOLOGY LABORATORY Final Diagnosis Specimen A. 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 8 5:38 PM CDT DERMATOPATHOLOGY LABORATORY Gross Description Specimen A: Received is one formalin filled container labeled with the patient's name and designated right lower leg. The specimen consists of a punch biopsy measuring 4x2n6yw, bisected. Jar 0. 8 5:38 PM CDT [...] characteristic determined by the Dermatopathology Laboratory at [facility]. These tests need not be, and therefore are not, approved by the [place] Food and Drug Administration. The tests are used for clinical purposes. Billing Codes Specimen Charges Stain Charges 03412 1 8 5:38 PM CDT DERMATOPATHOLOGY LABORATORY Embedded Images 8 5:38 PM CDT DERMATOPATHOLOGY LABORATORY Pathology/Cytolog y TISSUE SPECIMEN FROM SKIN / Unknown 03/30/2018 03/31/2018 12:18 PM CDT Franck Allen MD LAB - PATHOLOGY/CYTOLOGY ORD ERABLES Final Result DERMATOPATHOLOGY LABORATORY [facility] - Department of Dermatology [facility] [facility], 5th Floor Lab [address] [phone] documented in this encounter Visit Diagnoses Not on filedocumented in this encounter Additional Health Concerns Infection Onset Date Last Indicated Resolved Time COVID-19 Under Investigation 01/06/2025 01/06/2025 01/06/2025 1:31 PM CDT documented as of this encounter Care Teams Director Of Infection Prevention Relationship Specialty Start Date End Date Lona Martínez [address] [facility] [address] [place] [phone] PCP - General Family Medicine 11/22/24 documented as of this encounter
--- OUTSIDE RECORDS SUMMARY | 2025-10-15 20:43 | XMS_ITS | Encounter Summary ---
Author Organization [facility] Health Address [address] [facility] [place] [address] Care Team Providers Care Federal Judge Name Role Phone GatoLona prieto Primary Care Provider [phone] Encounter Details Date Type Department Care Team (Late st Contact Info) Description 09/01/2022 Lab Requisition [facility] Care DermPath Lab [address] [facility] [place] [phone] Fredis London MD [address] [place] [id number] Social History Tobacco Use Types Packs/Day Years Used Date Smoking Tobacco: Never Assessed Comments Unknown Sex and Gender Information Value Date Recorded Sex Assigned at Female 11/11/2024 10:27 AM COIL TIER Legal Sex Female 5:48 PM COIL TIER Gender Identity Female 11/11/2024 10:27 AM COIL TIER Sexual Orientation Choose not to disclose 2024 10:27 AM COIL TIER documented as of this encounter Plan of Treatment Not on file documented as of this encounter Procedures Procedure Name Priority Date/Time Associated Diagnosis Comments DERMATOPATHOLOGY Routine 08/28/2022 12:0 0 AM CDT documented in this encounter Results * DERMATOPATHOLOGY (08/28/2022 12:00 AM CDT) Case Report Dermatopathology Report Case: [id number] Authorizing Provider: Fredis London MD Collected: 08/28/2022 12:00 AM Ordering Location: [facility] DermPath Lab Received: 09/01/2022 05:59 AM Pathologist: Brett David MD Specimen: Skin, right cheek 4:12 PM [facility] DERMATOPATHOLOGY LABORATORY Final Diagnosis Specimen A. 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 Check margins. Path#[id number]. 4:12 PM [facility] DERMATOPATHOLOGY LABORATORY Gross Description Specimen A: Received is one formalin filled container labeled with the patient's name and designated right cheek. The specimen consists of a non-oriented ellipse of skin measuring 14x7x5 mm, bisected. 4:12 PM [facility] DERMATOPATHOLOGY LABORATORY Microscopic Description Specimen A. [...] perpendicular to the skin surface. 4:12 PM [facility] DERMATOPATHOLOGY LABORATORY Disclaimer An external and internal positive and negative controls are appropriate for the histochemical, immunohistochemical and immunofluorescence stain(s) in this case (if any), except where stated explicitly. The performance characteristics of the stain(s) cited in this report were developed and its performance characteristic determined by the Dermatopathology Laboratory at [facility], directed by Dr. Micki David. These tests need not be, and therefore are not, approved by the [place] Food and Drug Administration. The tests are used for clinical purposes. Billing Codes Specimen Charges Stain Charges 79640 1 2 4:12 PM [facility] DERMATOPATHOLOGY LABORATORY Embedded Images 4:12 PM COIL TIER DERMATOPATHOLOGY LABORATORY Pathology/Cytolog y TISSUE SPECIMEN FROM SKIN / Unknown 08/28/2022 09/01/2022 5:59 AM COIL TIER Fredis London MD LAB - PATHOLOGY/CYTOLOGY ORDER DORIAN Final Result DERMATOPATHOLOGY LABORATORY [facility] - Department of Dermatology Specialized Medicine [address] [place] [address], [address] [phone] documented in this encounter Visit Diagnoses Not on filedocumented in this encounter Additional Health Concerns Infection Onset Date Last Indicated Resolved Time COVID-19 Under Investigation 01/06/2025 01/06/2025 01/06/2025 1:31 PM CDT documented as of this encounter Care Teams Federal Judge Relationship Specialty Start Date End Date Lona Martínez [address] [facility] [address] [place] [phone] PCP - General Family Medicine 11/22/24 documented as of this encounter
--- OUTSIDE RECORDS SUMMARY | 2025-10-15 20:43 | XMS_ITS | Clinical Summary ---
Author Organization [facility] Address [address] [place] [address] Phone Care Team Providers Care Edi Manager Name Role Phone Maxi Salinas MD Primary Care Provider [phone] Allergies Active Allergy Reactions Criticality Noted Date [...] or Spasm. 90 Tablet 11/18/2016 12:32 PM CUT TOBACCO BULKER 7 Active oxyCODONE-aceta minophen (PERCOCET) 5-325 mg tablet Take 1-2 Tablets by mouth every 4-6 hours as needed for pain. 60 Tablet 11/18/2016 12:32 PM CUT TOBACCO BULKER 7 Active traZODone (DESYREL) 50 mg tablet [...] on file Legal Sex Female 10:50 AM CUT TOBACCO BULKER Gender Identity Not on file Sexual Orientation [...] Tdap) 07/08/2027 Medical Devices Implanted Type Area Radio Operator Device Identifier Shelf Expiration Date Model / Serial / Lot Sealant Duraseal 5ml - [id number] Implanted:Qt y: 1 on 11/17/2016 by Kyler Ovalle MD at [facility] Biological N/A: Spine Lumbar [employer] [id number] 01/23/2018 / / [id number] Sealant Floseal W/ Apdtr 5ml [id number] - [id number] Implanted:Qt y: 1 on 11/17/2016 by Kyler Ovalle MD at [facility] Sealant N/A: Spine Lumbar [employer] [id number] 02/22/2018 [id number] / / [id number] Insurance RX [facility] Medicare Part D RX DE [employer] PLANS (INTERNAL) [facility] Internal Plans MEDICARE PART A AND B [facility] Advance Directives For more information, please contact: [phone] Documents on File Type Date Recorded Patient Life Specialist Expl anation Advance Directive POA 11/17/2016 9:14 [...] 9:30 AM 11/17/2016 11:26 AM Care Teams Edi Manager Relationship Specialty Start Date End Date Maxi Salinas MD [address] [place] [phone] PCP - General Family Practice 11/17/16
--- OUTSIDE RECORDS SUMMARY | 2025-10-15 20:43 | XMS_ITS | Encounter Summary ---
Author Organization [facility] Health Address [address] [facility] [place] [address] Care Team Providers Care Cyber Systems Engineer Name Role Phone Lona Martínez Primary Care Provider Reason for Visit * Reason Onset Date Comments Procedure Prior Auth Request 11/24/2024 Encounter Details Date Type Department Care Team (Late st Contact Info) Description 11/24/2024 Telephone [facility] - ASSISTANT STORE LEADER [address] [facility] [address] [place] [address] Any Garcia MD [address] [facility] [address] [place] [address] Procedure Prior Auth Request Social History Tobacco Use Types Packs/Day Years Used Date Smoking Tobacco: Former Cigarettes Alcohol Use Standard Drinks/Week Comments Yes 0 (1 standard drink = 0.6 oz pur e alcohol) PHQ-2 Answer Date Recorded Patient Health Questionnaire-2 Score 0 11/16/2024 Comments No Sex and Gender Information Value Date Recorded Sex Assigned at Female 11/11/2024 10:27 AM RAIL ENGINEER Legal Sex Female 5:48 PM RAIL ENGINEER Gender Identity Female 11/11/2024 10:27 AM RAIL ENGINEER Sexual Orientation Choose not to disclose 2024 10:27 AM RAIL ENGINEER documented as of this encounter Miscellaneous Notes * Telephone Encounter - Farida Newby - 11/24/2024 10:44 AM CST [facility] is calling needing auth for pt test on 11-30-24. CB: [phone] Luly FAX: [phone] ENGINEER documented in this encounter Plan of Treatment Not on file documented as of this encounter Visit Diagnoses Not on filedocumented in this encounter Additional Health Concerns Infection Onset Date Last Indicated Resolved Time COVID-19 Under Investigation 01/06/2025 01/06/2025 01/06/2025 1:31 PM CDT documented as of this encounter Care Teams Cyber Systems Engineer Relationship Specialty Start Date End Date Lona Martínez [address] [facility] [address] [place] [phone] PCP - General Family Medicine 11/22/24 documented as of this encounter
--- OUTSIDE RECORDS SUMMARY | 2025-10-15 20:43 | XMS_ITS | Clinical Summary ---
Author Organization [facility] Address [address] [place] [address] Phone Care Team Providers Care Principal Technical Specialist Name Role Phone Horacio Mcdonald Melanie [...] 07/19/2018, 07/22/2017, Additional history exists SARS-COV-2 Immunization (2024- season) 2025 Pneumococcal Immunization (50+ years) Completed 07/22/2017, 07/20/2017, 11/26/2015 Pneumococcal Immunization Combined Discontinued 07/22/2017, 07/20/2017, 11/26/2015 Hepatitis B Immunization Aged Out No longer eligible based on patient's age to complete this topic Human Papillomavirus (HPV) Immunization (No Doses Required) Completed Meningococcal Immunization (ACWY) Aged Out No longer eligible based on patient's age to complete this topic Rotavirus Immunization Aged Out No lo nger eligible based on patient's age to complete this topic Insurance MEDICARE C [employer] Care Teams Principal Technical Specialist Relationship Specialty Start Date End Date Horacio Mcdonald DO [address] [place] [id number] PCP - General Family Medicine 05/26/19
--- OUTSIDE RECORDS SUMMARY | 2025-10-15 20:43 | XMS_ITS | Clinical Summary ---
Author Organization [facility] al Address [address] [place] [address] Care Team Providers Care Elevator Operator Freight Name Role Phone Willard Barksdale DO Unavailable Jani Washington MD Unavailable [phone] Lona Martínez MD Primary Care Provider Allergies [...] morning, Indications: Myocardial Reinfarction Prevention, Informant: Self, Agricultural Technical Officer Care Facility, Reported on 02/02/2025 atorvastatin (Lipitor) [...] tablet by mouth nightly Active multivit with vaw-GD-shwjmkcb 0.4-600 mg-mcg tabletIndications: supplement Take 1 tablet by mouth every morning Active enoxaparin 40 mg/0.4 mL syringe kitIndications:Mitzi ayon Vein Thrombosis Prevention Inject 40 mg under the skin early head start director before breakfast Active ibuprofen (ADVIL,MOTRIN) 600 mg [...] 09/24/2023 Assessment & Plan (09/24/2023 9:03 AM EVENT STAFF MEMBER): This is chronic and stable. Avoid and limit foods that are high cholesterol, fatty. Limit intake of egg yokes, processed meats, and whole milk. Continue prescription atovastatin. Parkinson's disease without dyskinesia or fluctuating manifestations 09/24/2023 Acquired hypothyroidism 09/24/2023 Assessment & Plan (09/24/2023 9:04 AM EVENT STAFF MEMBER): Chronic, stable; cont levothyroxine 125mcg/day OAB (overactive bladder) 09/24/2023 Persistent depressive disorder 09/24/2023 Primary osteoarthritis involving multiple joints 09/24/2023 Encephalopathy 09/24/2023 Gastroesophageal reflux disease without esophagi tis 09/24/2023 SHANITA (generalized anxiety disorder) 09/24/2023 Essential hypertension 09/24/2023 Crohn's disease 09/24/2023 Assessment & Plan (09/24/2023 9:04 AM EVENT STAFF MEMBER): Chronic, stable; cont sulfasalazine script Stroke-like episode 09/24/2023 Assessment & Plan (09/24/2023 9:05 AM EVENT STAFF MEMBER): Resolved, acute; begin pt and ot Chronic diastolic congestive heart failure 09/24 Cystitis 09/24/2023 Assessment & Plan (09/24/2023 9:05 AM EVENT STAFF MEMBER): This is subacute and improving. Complete course of oral cefdinir script Hiatal hernia 09/24/2023 Lumbar radiculopathy 09/24/2023 Generalized weakness 09/24/2023 Assessment & Plan (09/24/2023 9:05 AM EVENT STAFF MEMBER): I endorse admission to care home care. The patient is at risk [...] Encounters Date Type Department Care Team Description 08/29/2025 10:01 AM EVENT STAFF MEMBER - 08/29/2025 11:59 PM EVENT STAFF MEMBER Hospital Encounter [facility] [address] [place] [address] Left shoulder pain, unspecified chronicity Discharge Disposition: Discharge to home or self care 08/29/2025 10:00 AM EVENT STAFF MEMBER Office Visit [facility] Orthopaedic Surgery [id number] [place] [address] 2nd [address] [place] [id number] Salbador Malik PA Displaced fracture of greater tuberosity of left humerus, initial encounter for closed fracture (Primary Dx); Left shoulder pain, unspecified chronicity 08/27/2025 12:26 PM EVENT STAFF MEMBER - 08/27/2025 11:59 PM EVENT STAFF MEMBER Hospital Encounter [facility] [address] [place] [address] Discharge Disposition: Discharge to home or self care 08/27/2025 12:25 PM EVENT STAFF MEMBER - 08/27/2025 11:59 PM EVENT STAFF MEMBER Hospital Encounter [facility] [address] [place] [address] Discharge Disposition: Discharge to home or self care 08/10/2025 Telephone [facility] [address] [place] [address] Carson Crawford III, MD sooner appt r/s [...] on file Legal Sex Female 5:27 AM EVENT STAFF MEMBER Gender Identity Female 11/22/2024 10:23 AM EVENT STAFF MEMBER Sexual Orientation Straight 11/22/2024 10 :23 AM EVENT STAFF MEMBER Last Filed Vital Signs Vital Sign Reading Time Taken Comments Blood Pressure 156/56 02/02/2025 6:50 PM CDT Pulse 72 02/02/2025 6:50 PM CDT Temperature 36.2 C (97.2 F) 02/02/2025 3:40 PM CDT Respiratory Rate 17 02/02/2025 6:50 PM CDT Oxygen Saturation 94% 02/02/2025 6:50 PM CDT Inhaled Oxygen Concentration - - Weight 77.1 kg (170 lb) 08/29/2025 9:33 AM EVENT STAFF MEMBER Height 152.4 cm (5') 08/29/2025 9:33 AM EVENT STAFF MEMBER Body Mass Index 33.2 08/29/2025 9:33 AM EVENT STAFF MEMBER Plan of Treatment Health Maintenance Due Date Last Done Comments Depression Screening 1940 Hepatitis B Screening 1958 Well Visit 65+ 2005 Osteoporosis Screening-Bone Density Scan 07/16/2023 07/16/2021 Covid-19 Vaccine (2024-2 6 season) 2025 07/21/2023, 07/26/2022, 10/01/2021, Additional history exists Influenza Vaccine (#1) 2025 , 07/21/2023, 07/15/2022, Additional history exists Fall Risk Assessment 02/02/2026 02/02/2025 DTaP/Tdap/Td Vaccine (2 - Td or Tdap) 07/08/2027 07/08/2017 Pneumococcal vaccine 65+ Completed 017, 07/20/2017, 11/26/2015 Zoster Vaccine Completed 12/03/2021, 12/04/2021, 11/26/2015 Procedures Procedure Name Priority Date/Time Associated Diagnosis Comments XR SHOULDER LEFT 2 OR MORE VIEWS Schedule Routine, Read Routine (OP Routine) 08/29/2025 10:14 AM EVENT STAFF MEMBER Left shoulder pain, unspecified chronicity MSK CT OUTSIDE REFERENCE Routine 08/27/2025 12:26 PM EVENT STAFF MEMBER XR TRANSFER OF OUTSIDE FILMS Routine 08/27/2025 12:25 PM EVENT STAFF MEMBER from Last 3 Months Results * XR Shoulder Left 2 or More Views (08/29/2025 10:14 AM EVENT STAFF MEMBER) Anatomical Region Laterality Modality Upper Extremities, Shoulder Left Comp uted Radiography 08/29/2025 11:1 3 AM EVENT STAFF MEMBER Impressions 08/29/2025 11:13 AM EVENT STAFF MEMBER 1. Healing, minimally displaced, left greater tuberosity fracture. Electronically signed by: Rick Diop MD Narrative 08/29/2025 11:13 AM EVENT STAFF MEMBER EXAMINATION: XR SHOULDER LEFT 2 OR MORE VIEWS HISTORY: Left shoulder pain FINDINGS: Comparison is made with outside hospital radiographs dated 08/06/2025. There is a healing, minimally displaced, left greater tuberosity fracture. Mild glenohumeral and acromioclavicular joint osteoarthritis. No dislocation. A large hiatal hernia is present. A leadless pacemaker overlies the chest. Procedure Note Rick Diop MD - 08/29/2025 EXAMINATION: XR SHOULDER LEFT 2 OR MORE VIEWS HISTORY: Left shoulder pain FINDINGS: Comparison is made with outside hospital radiographs dated 08/06/2025. There is a healing, minimally displaced, left greater tuberosity fracture. Mild glenohumeral and acromioclavicular joint osteoarthritis. No dislocation. A large hiatal hernia is present. A leadless pacemaker overlies the chest. IMPRESSION: 1. Healing, minimally displaced, left greater tuberosity fracture. Electronically signed by: Rick Diop MD Salbador CENTENO XR PROCEDURES Final Result * MSK CT Outside Reference (08/27/2025 12:26 PM EVENT STAFF MEMBER) Impressions RAD_PACS[facility] - 08/27/2025 12:26 PM EVENT STAFF MEMBER These images are for Reference purposes only and have not been reviewed by [facility] Radiology. There will be no report generated by a [facility] Radiologist. Narrative RAD_PACS[facility] - 08/27/2025 12:26 PM EVENT STAFF MEMBER EXAMINATION: Images For Reference Purposes Only Salbador Malik PA IMG CT PROCEDURES Final Result Performing Organization Address City/[facility]/ZIP Co de Phone Number [facility] * XR Outside Reference (08/27/2025 12:25 PM EVENT STAFF MEMBER) Impressions [facility] - 08/27/2025 12:25 PM EVENT STAFF MEMBER These images are for Reference purposes only and have not been reviewed by [facility] Radiology. There will be no report generated by a [facility] Radiologist. Narrative [facility] - 08/27/2025 12:25 PM EVENT STAFF MEMBER EXAMINATION: Images For Reference Purposes Only Salbador Malik PA IMG XR PROCEDURES Final Result Performing Organization Address City/[facility] Co de Phone Number RAD_P[facility] from Last 3 Months Insurance TNA MEDICARE GOLD AETNA MEDICARE GOLD Care Teams Elevator Operator Freight Relationship Specialty Start Date End Date Lona Martínez MD [address] [facility] [address] [place] [address] PCP - General Family Medicine 01/20/25 Willard Barksdale DO [address] [place] [address] Family Medicine 03/28/24 Jani Washington MD [address] [place] [place] [address] Referring Physician Neurology 03/28/24
--- OUTSIDE RECORDS SUMMARY | 2025-10-15 20:43 | XMS_ITS | Encounter Summary ---
Author Organization [facility] Address [facility] [place] [address] Care Team Providers Care Dictating Machine Mechanic Name Role Phone FroydeniseAlessandra RN Unavailable [phone] Lona Martínez MD Primary Care Provider + Jani Washington MD Unavailable [phone] Jewel Walker MD Unavailable [phone] John Cervantes MD Unavailable [phone] Julio Claudio MD Unavailable [phone] Encounter Details Date Type Department Care Team (Late st Contact Info) Description 08/09/2025 [employer] Message Enc [facility] Multispecialty Care - [facility] [address] [facility], [address] [place] [address] [facility] Provider Results Social History Tobacco [...] materials from doctor or pharmacy Never 08/25/2023 [facility] Utilities Answer Date Recorded In the past 12 months has e [employer], gas, oil, or water fundfindr threatened to shut off services in your [...] week 06/19/2023 How often do you attend taoist or buddhism serv ices? Never 06/19/2023 Do you belong to any clubs o r organizations such as taoist groups, unions, fraternal or athletic groups, or [...] Recorded Patient Health Questionnaire-2 Score 2 08/05/2025 [facility] Occupat ional [facility] - Occupational Stress [...] any time in the past 12 [facility], were you homeless or living in a [...] Care Team (Late st Contact Info) Description 11/13/2025 4:40 PM WINTER INTERN Allied Health/Nurse Visit [facility], [address] [place] [address] Rick Madison MD Three [facility]. [address] [place], [place] [address] 11/14/2025 1:00 PM WINTER INTERN Office Visit [facility] Family Medicine - [address] [place] [address] Lona Martínez MD [address] [place] [address] 12/26/2025 2:15 PM WINTER INTERN Office Visit [facility], [address] [place] [address] Roxy Roth, SHRUB PLANTER-C Three [facility]. [address] [place] [address] 01/01/2026 3:00 PM CDT Office Visit [facility] Multispecialty Care - [facility] [address] [facility], [address] [place] [address] Jani Washington MD [address] [facility] [place] [address] 08/24/2026 2:00 PM CDT Office Visit [facility] Family [facility] [address] [place], [place] [address] Lona Martínez MD [address] [place], [place] [id number] documented as of this encounter Goals Goal Patient Goal Type Associated Problems Recent Progress Patient-Stated? Author Health - patient able to perform ADLs independently Lifestyle On track(2024 9:36 AM WINTER INTERN) No Malena Mcqueen, HOMEOWNER ASSOCIATION MANAGER Establish Regular Follow-Ups with PCP Lifestyle On track(2024 9:36 AM WINTER INTERN) No Alessandra Sarabia RN Establish Plan for Symptom Monitoring HTN Lifestyle On track(2024 9:36 AM WINTER INTERN) No Alsesandra Sarabia, RN Note: HTN: Patient to monitor blood pressure daily and record readings and call provider with consistent readings >140/90. Patient will maintain a low sodium diet . Patient will call provider with any visual disturbances, headaches or dizziness. Patient to take all medications as prescribed. Establish Plan for Symptom Monitoring Lifestyle On track(2024 9:36 AM WINTER INTERN) No Alessandra Sarabia RN Note: CHF: Patient [...] to maintain pain control Lifestyle On track(2024 9:36 AM WINTER INTERN) No Ernie Solano RN Know what s/s should trigger a call to provider. Care Plan Acute blood loss anemia No Lesia Martinez RN Understand your medications and know how, why, and when to take them. Care Plan Acute blood loss anemia No Lesia Martinez RN Note: See Notes Improve Home Support System Care Plan [facility] HP SOCIAL SUPPORT No Nathalie Arndt BSW Improve Home Support System Care Plan [facility] HP SOCIAL SUPPORT No Nathalie Arndt BSW documented as of this encounter Visit Diagnoses Not on filedocumented in this encounter Additional Health Concerns Active Problems Noted Date Diagnosed Date Acute blood loss anemia 05/30/2019 [facility] HP SOCIAL SUPPORT 06/08/2019 Assessment Noted Time PHQ-9 Depression Total Score: 6 08/05/20 25 10:01 AM CDT documented as of this encounter Care Teams Dictating Machine Mechanic Relationship Specialty Start Date End Date Lona Martínez MD [address] [place] [address] PCP - General FAMILY PRACTICE 05/03/24 Alessandra Sarabia, RN [address] [place] [address] Baffle Installer (Ambulatory) REGISTERED NURSE 06/05/23 Jani Washington MD [address] [facility] [address] [place] [address] Physician NEUROMUSCULOSKELETAL MEDICINE 06/28/24 Jewel Walker MD [facility] [place] [address] Referring Physician GASTROENTEROLOGY 06/28/24 John Cervantes MD [address] [address] OPHTHALMOLOGY 06/28/24 [place] [address] [place] [address] Consulting Physician CARDIOVASCULAR DISEASE 07/04/25 documented as of this encounter
--- OUTSIDE RECORDS SUMMARY | 2025-10-15 20:43 | XMS_ITS | Encounter Summary ---
Author Organization [facility] Address [address] [facility] [place] [address] Care Team Providers Care Design Drafter Name Role Phone Lona Martínez Primary Care Provider [phone] Encounter Details Date Type Department Care Team (Late st Contact Info) Description 03/31/2018 Lab Requisition [facility] Care DermPath Lab [address] [facility] [place] [address] Franck Allen MD [address] [place] [address] Social History Tobacco Use Types Packs/Day Years Used Date Smoking Tobacco: Never Assessed Comments Unknown Sex and Gender Information Value Date Recorded Sex Assigned at Female 11/11/2024 10:27 AM 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 Legal Sex Female 5:48 PM 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 Gender Identity Female 11/11/2024 10:27 AM 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 Sexual Orientation Choose not to disclose 2024 10:27 AM 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 documented as of this encounter Plan of Treatment Not on file documented as of this encounter Procedures Procedure Name Priority Date/Time Associated Diagnosis Comments IMMUNOFLUORESCENT STUDY DERM Routine 03/30/2018 12:00 AM CDT documented in this encounter Results * IMMUNOFLUORESCENT STUDY DERM (03/30/2018 12:00 AM CDT) Case Report Dermatopathol ogy Report Case: [id number] Authorizing Provider: Franck Allen MD Collected: 03/30/2018 12:00 AM Pathologist: Brett David MD Received: 03/31/2018 12:19 PM Specimen: Skin, right lower leg 8 5:39 PM CDT DERMATOPATHOLOGY LABORATORY Final Diagnosis Specimen A. SKIN, right lower leg: VASCULAR IgG AND C3 AND COLLOID BODIES (L98.9) (see microscopic description and comment) (see fixed tissue results, [id number]) 8 5:39 PM CDT DERMATOPATHOLOGY LABORATORY at 1733 CDT Direct Immunofluorescence Report - Specimen A [...] specimen consists of a punch biopsy measuring [id number]. The specimen is submitted in whole for [...] determined by the Dermatopathol ogy Laboratory at [facility]. These tests need not be, and therefore are not, approved by the [place] Food and Drug Administratio n. The tests are used for clinical purposes. Billing Codes Specimen Charges Stain Charges 95135 58596 51130 81507 43802 52210 1 1 1 1 1 1 8 5:39 PM CDT DERMATOPATHOLOGY LABORATORY Embedded Images 8 5:39 PM CDT DERMATOPATHOLOGY LABORATORY Pathology/Cytolog y TISSUE SPECIMEN FROM SKIN / Unknown 03/30/2018 03/31/2018 12:19 PM CDT Franck Allen MD LAB - PATHOLOGY/CYTOLOGY ORD ERABLES Final Result DERMATOPATHOLOGY LABORATORY [facility] - Department of Dermatology [address] [place] [address] [address]th Floor Lab [address] [phone] documented in this encounter Visit Diagnoses Not on filedocumented in this encounter Additional Health Concerns Infection Onset Date Last Indicated Resolved Time COVID-19 Under Investigation 01/06/2025 01/06/2025 01/06/2025 1:31 PM CDT documented as of this encounter Care Teams Design Drafter Relationship Specialty Start Date End Date Lona Martínez [address] [address] PCP - General Family Medicine 11/22/24 documented as of this encounter
--- OUTSIDE RECORDS SUMMARY | 2025-10-15 20:43 | XMS_ITS | Encounter Summary ---
Author Organization [facility] Address [facility] [place] [address] Care Team Providers Care Billet Inspector Name Role Phone Horacio Mcdonald DO Primary Care Provider + Lesia Martinez RN Unavailable [phone] Wong Zambrano DO Primary Care Provider [phone] Alessandra Sarabia RN Unavailable [phone] Willard Barksdale DO Primary Care Provider [phone] Willard Barksdale DO Primary Care Provider [phone] Alessandra Sarabia RN Unavailable [phone] Alex Cooley MD Unavailable [phone] Lona Martínez MD Primary Care Provider + Jani Washington MD Unavailable [phone] Jewel Walker MD Unavailable [phone] John Cervantes MD Unavailable [phone] Julio Claudio MD Unavailable [phone] Encounter Details Date Type Department Care Team (Late Contact Info) Description 05/31/2019 Hospital Follow-up Call [facility] [place] [address] Jenny Bhakta Social History Tobacco Use Types [...] st Contact Info) Description 11/13/2025 4:40 PM WEATHER ALGORITHM SCIENTIST Allied Health/Nurse Visit [facility] THREE [facility], [address] [place] [address] Rick Madison MD Three [facility]. [address] [place] [address] 11/14/2025 1:00 PM WEATHER ALGORITHM SCIENTIST Office Visit [facility] Family Medicine - [address] [place], [place] [address] Lona Martínez MD [address] [place] [id number] 12/26/2025 2:15 PM WEATHER ALGORITHM SCIENTIST Office Visit [facility] THREE [facility], [address] [place] [address] Roxy Roth, SENIOR BUSINESS MANAGER-C [facility]. [address] [place] [address] 01/01/2026 3:00 PM CDT Office Visit [facility] Multispecialty Care - [facility] [address] [facility], [address] [place] [address] Jani Washington MD [address] [facility] [place] [address] 08/24/2026 2:00 PM CDT Office Visit [facility] Family [facility] [address] [place], [place] [address] Lona Martínez MD [address] [place], [place] [id number] documented as of this encounter Goals Goal [...] From [place] 09/29/2023 09/29/2023 3 3:13 PM WEATHER ALGORITHM SCIENTIST Assessment Noted Time PHQ-9 Depression Total Score: 2 10/20/20 18 8:31 AM WEATHER ALGORITHM SCIENTIST documented as of this encounter Care Teams Billet Inspector Relationship Specialty Start Date End Date Horacio Mcdonald DO [address] [place] [address] PCP - General FAMILY PRACTICE 10/15/18 01/17/21 Wong Zambrano DO [facility] [place], [place] [address] PCP - General FAMILY PRACTICE 01/18/21 10/14/22 Willard Barksdale [place] [place] [address] PCP - General FAMILY PRACTICE 11/20/22 11/23/22 Willard Barksdale DO [address] [place] [address] PCP - General FAMILY PRACTICE 11/24/22 04/17/24 Lona Martínez MD [address] [address] PCP - General FAMILY PRACTICE 05/03/24 Lesia Martinez RN [address] [place], [place] [address] Soil Chemist (Ambulatory) REGISTERED NURSE 05/25/19 06/28/19 Alessandra Sarabia RN [address] [place] [address] Soil Chemist (Ambulatory) REGISTERED NURSE 10/06/22 11/04/22 Alessandra Sarabia RN [address] [place], [place] [address] Soil Chemist (Ambulatory) REGISTERED NURSE 06/05/23 Alex Cooley MD [address] [place] [address] GASTROENTEROLOGY 10/13/23 10/13/24 Jani Washington MD [facility] [address] Physician NEUROMUSCULOSKELETAL MEDICINE 06/28/24 Jewel Walker MD [facility] [place] [address] Referring Physician GASTROENTEROLOGY 06/28/24 John Cervantes MD [address] [address] OPHTHALMOLOGY 06/28/24 [place] [address] [place] [address] Consulting Physician CARDIOVASCULAR DISEASE 07/04/25 documented as of this encounter
--- NOTE | 2025-10-15 22:12 | ECG_ITS ---
Test Date: 2025-10-15 22:32:43 Measurements Intervals Butler Rate: 86 P: 18 MI: 257 QRS: -36 QRSD: 84 T: 31 QT: 353 QTc: 424 Interpretive Statements SINUS RHYTHM WITH FIRST DEGREE AV BLOCK LEFT AXIS DEVIATION ANTERIOR INFARCT, AGE INDETERMINATE BASELINE ARTIFACT- I, II, III, AVR, AVL ,AVF ABNORMAL ECG Compared to ECG 10/15/2025 19:40:46 NO SIGNIFICANT CHANGE Electronically Signed On 10-16-2025 06:43:09 REGIONAL ACCOUNT EXECUTIVE by Juan Manuel Mathews D.O.
[2025-10-15 23:05] LABS: Troponin I < 0.012 ng/mL (0.000-0.034)
--- NOTE | 2025-10-15 23:26 | ED.GENADULT ---
HPI - General Adult General Chief complaint: Chest Pain Stated complaint: Chest pain and vomiting Time Seen by Provider: 10/15/25 19:46 History of Present Illness HPI narrative: Patient is a 85-year-old female who presents emergency department with chief complaint of chest discomfort after eating the patient reports she has history of hiatal hernia reports that she had an episode of vomiting afterwards reports that discomfort is essentially resolved at this point the patient states that she has had a non-STEMI before in the past also history of the hiatal hernia that causes her more problems. The patient states that she has had no fever reports that she had no shortness of breath or diaphoresis Related Data Allergies Allergy/AdvReac Type Severity Reaction Status Date / Time levofloxacin Allergy Itching Verified 10/15/25 20:24 Review of Systems Review of Systems: A 10 system review of systems was completed on the patient and is negative except for what is stated in the HPI. Nursing and ancillary documentation was reviewed. PMFSH Past Medical History Medical History Chronic pain Exam Narrative: GENERAL: Well-appearing, well-nourished, and in no acute distress. HEAD: Normocephalic, atraumatic. EYES: PERRLA and EOMI. ENT: Nares clear, no rhinorrhea or epistaxis. Mucous membranes moist. NECK: Supple. CHEST: Clear to auscultation. No respiratory distress. HEART: Regular rate and rhythm. No murmur heard. Normal peripheral pulses. ABDOMEN: Soft, nontender, nondistended, normal active bowel sounds. EXTREMITIES: Normal range of motion. No edema. SKIN: Warm, dry, no rash. NEURO: No focal deficits. Alert and oriented x3. PSYCH: Normal mood and affect. Course Vital Signs Vital signs: Vital Signs Temperature 36.8 C 10/15/25 19:31 Pulse Rate 91 10/15/25 19:31 Respiratory Rate 25 H 10/15/25 19:31 Blood Pressure 136/77 10/15/25 19:31 Pulse Oximetry 96 10/15/25 19:31 Oxygen Delivery Room Air 10/15/25 19:31 Temperature 36.8 C 10/15/25 19:31 Pulse Rate 92 10/15/25 20:31 Respiratory Rate 23 H 10/15/25 22:15 Blood Pressure 129/58 L 10/15/25 22:15 Pulse Oximetry 98 10/15/25 20:16 Oxygen Delivery Room Air 10/15/25 19:40 MDM Differential Diagnosis Differential Diagnosis: ACS, gastroesophageal reflux disease, hiatal hernia discomfort, EKG showed no acute ischemic changes initial troponin was-3 hour repeat troponin was also negative The patient is currently asymptomatic patient was instructed to follow-up with her primary care provider Lab Data 10/15/25 19:54 10/15/25 19:54 Labs: Lab Results 10/15/25 10/15/25 Range/Units 19:54 22:37 WBC 10.9 H (4.5-10.0) K/mm3 RBC 3.93 L (4.2-5.4) M/mm3 Hgb 12.8 (12.0-15.0) g/dL Hct 39.2 (37.0-47.0) % MCV 99.7 (80-100) fl MCH 32.6 (26-34) pg MCHC 32.7 (32-36) g/dl RDW 12.8 (11.5-14.5) % Plt Count 239 (150-375) k/mm3 MPV 10.0 (7.4-10.4) fl Immature Gran % (Auto) 0.4 (0-0.5) % Neut % (Auto) 75.0 H (45.5-73.1) % Lymph % (Auto) 13.8 L (18.3-44.2) % [place] % (Auto) 8.9 H (2.6-8.5) % Eos % (Auto) 1.5 (0-4.4) % Baso % (Auto) 0.4 (0.2-1.2) % Lymph # (Auto) 1.51 (0.9-3.2) K/mm3 [place] # (Auto) 1.0 H (0.1-0.6) K/mm3 Eos # (Auto) 0.2 (0-0.3) K/mm3 Baso # (Auto) 0.0 (0.0-0.1) K/mm3 Abs Immat Gran (auto) 0.04 H (0.00-0.031) K/mm3 Absolute Neuts (auto) 8.2 H (1.3-6.7) K/mm3 Absolute Nucleated RBC 0.000 (0.0-0.012) K/mm3 Nucleated RBC % 0.0 (0.0-0.2) % PT 12.4 (11.1-14.7) Seconds INR 0.9 APTT 26.6 (22.3-36.8) Seconds Sodium 140 (137-145) mmol/L Potassium 3.8 (3.4-5.0) mmol/L Chloride 108 H (98-107) mmol/L Carbon Dioxide 27 (22-30) mmol/L Anion Gap 5 (4-12) mmol/L BUN 27 H (7-17) mg/dL Creatinine 1.02 H (0.7-1.0) mg/dL Estim Creat Clear Calc 37 ml/min Estimated GFR 52 L (59 - ) Glucose 98 (65-110) mg/dL Calcium 9.5 (8.4-10.2) mg/dL Total Bilirubin 0.6 (0.2-1.3) mg/dL AST 35 (14-36) U/L ALT 6 (6-35) U/L Alkaline Phosphatase 112 (38-126) U/L Troponin I < 0.012 < 0.012 (0.000-0.034) ng/mL Total Protein 6.8 (6.3-8.2) g/dL Albumin 4.0 (3.5-5.1) g/dL Lipase 53 (23-300) U/L Discharge Plan Discharge Clinical Impression: Atypical chest pain Patient Disposition: NH Detention/Asst Living Condition: Stable Instructions: Antibiotic Form, Chest Pain (ED) Patient Language: Citizen Of [place] Prescriptions: No Action hydrocodone-acetaminophen 5-325 mg tablet 1 tablet PO Q6H PRN (Reason: pain) 3 Days Qty: 12 0RF oxycodone-acetaminophen 5-325 mg tablet 1 tablet PO Q4H PRN (Reason: pain) Qty: 30 0RF Follow-up/Referrals: Mauricio,Lona Restrepo MD [Primary Care Provider, Unknown] Time of Disposition: 23:56
== END 2025-10-16 00:43 ==
PROVIDERS: Emergency Provider Emergency Medicine; PCP Student in an Organized Health Care Education/Training Program
DX: R07.89 Other chest pain (principal)
CPT/HCPCS: 36415; 71045; 80053; 83690; 84484; 85025; 85610; 85730; 93005; 96374; 96375; 99284; J2405; J2470